=== PATIENT | female | born 1950 | race Caucasian/White ===

== ENCOUNTER → 2018-02-21 11:32 | Outpatient (CLI) | payer MEDICARE, OTHER, SELFPAY ==
[2018-02-21 13:09] LABS: ALB/GLOB Ratio 0.7 RATIO (0.9-2.4); AST(SGOT) 72 U/L (15-37); Alanine Aminotransfer ALT/SGPT 64 U/L (13-56); Albumin, Serum 3.4 g/dL (3.2-5.0); Alkaline Phosphatase 137 U/L (45-117); Anion Gap 8 (5-15); BUN 17 mg/dL (7-18); BUN/Creat Ratio 22.1 RATIO (10-20); Calcium,Total 9.6 mg/dL (8.5-10.1); Chloride 103 mmol/L (98-107); Cholesterol 177 mg/dL (200); Creatinine, Serum 0.77 mg/dL (0.55-1.02); EST Glomerular Filtration Rate 80 mL/min (>60); Est Glom Filt Rate - Afr Amer 97 mL/min (>60); Globulin 4.8 g/dL (2.2-4.2); Glucose 146 mg/dL (74-106); High Density Lipoprotein 37 mg/dL; Potassium 4.7 mmol/L (3.5-5.1); Protein, Total 8.2 g/dL (6.4-8.2); Sodium Level 140 mmol/L (136-145); Thyroid Stim Hormone (TSH) 1.75 uIU/mL (0.358-3.74); Triglycerides 204 mg/dL; Very Low Density Lipoprotein 41 mg/dL (5-40)
[2018-02-21 14:16] LABS: Absolute Lymphocyte Count 3.54 X10^3/ul (0.83-4.51); Absolute Neutrophil Count 7.5 X10^3/uL (2.0-7.7); Basophil# 0.07 X10^3/uL; Basophil% 0.6 % (0-1); Eosinophil# 0.73 X10^3/uL; Eosinophils% 5.8 % (0-5); Hematocrit 41.5 % (37-47); Hemoglobin 12.5 g/dl (12.0-15.0); Lymphocyte # 3.54 X10^3/ul (4.0); Lymphocyte % 28.1 % (19-41); Mean Corp Hgb Conc 30.1 g/gl (32-36); Mean Corpuscular Volume 89.6 fL (81-99); Mean Platelet Vol. 11.3 fl (6.2-12.0); Monocyte# 0.78 X10^3/uL; Monocyte% 6.2 % (0-10); Neutrophil # 7.47 X10^3/uL (2.7-7.7); Neutrophil % 59.1 % (47-70); Platelet Count 285 K/mm3 (150-450); RBC Distribution Width CV 17.3 % (11.6-14.6); RBC Distribution Width SD 56.4 fl (35.1-43.9); Red Blood Count 4.63 M/mm3 (4.2-5.4); White Blood Count 12.6 K/mm3 (4.4-11.0)
[2018-02-21 14:20] LABS: POSITIVE COUNT NO; POSITIVE DIFFERENTIAL NO; POSITIVE MORPHOLOGY NO
[2018-02-21 14:38] LABS: Hemoglobin A1c 8.5 % (4.2-6.3)
[2018-02-22 08:28] LABS: Vitamin D,25 Hydroxy 73.7 ng/mL (29.95-100.01)
== END ==
PROVIDERS: Family Provider Family Medicine Geriatric Medicine; PCP Family Medicine Geriatric Medicine; Visit Provider Family Medicine Geriatric Medicine
DX: E11.9 Type 2 diabetes mellitus without complications (principal); E55.9 Vitamin D deficiency, unspecified; E78.4 Other hyperlipidemia; I10 Essential (primary) hypertension
CPT/HCPCS: 36415; 80053; 80061; 82306; 83036; 84443; 85025

== ENCOUNTER → 2018-05-28 12:06 | Outpatient (CLI) | payer MEDICARE, OTHER, SELFPAY ==
[2018-05-28 12:34] LABS: Absolute Lymphocyte Count 2.93 X10^3/ul (0.83-4.51); Absolute Neutrophil Count 7.8 X10^3/uL (2.0-7.7); Basophil# 0.05 X10^3/uL; Basophil% 0.4 % (0-1); Eosinophil# 0.46 X10^3/uL; Eosinophils% 3.8 % (0-5); Hematocrit 40.7 % (37-47); Hemoglobin 12.8 g/dl (12.0-15.0); Lymphocyte # 2.93 X10^3/ul (4.0); Lymphocyte % 24.5 % (19-41); Mean Corp Hgb Conc 31.4 g/gl (32-36); Mean Corpuscular Hgb 28.7 pg (27.0-32.0); Mean Corpuscular Volume 91.3 fL (81-99); Mean Platelet Vol. 11.6 fl (6.2-12.0); Monocyte# 0.75 X10^3/uL; Monocyte% 6.3 % (0-10); Neutrophil # 7.75 X10^3/uL (2.7-7.7); Neutrophil % 64.7 % (47-70); Platelet Count 259 K/mm3 (150-450); RBC Distribution Width SD 49.4 fl (35.1-43.9); Red Blood Count 4.46 M/mm3 (4.2-5.4)
[2018-05-28 12:42] LABS: POSITIVE COUNT NO; POSITIVE DIFFERENTIAL NO; POSITIVE MORPHOLOGY NO
[2018-05-28 13:21] LABS: ALB/GLOB Ratio 0.8 RATIO (0.9-2.4); AST(SGOT) 98 U/L (15-37); Alanine Aminotransfer ALT/SGPT 91 U/L (13-56); Albumin, Serum 3.6 g/dL (3.2-5.0); Alkaline Phosphatase 162 U/L (45-117); Anion Gap 12 (5-15); BUN 14 mg/dL (7-18); BUN/Creat Ratio 17.5 RATIO (10-20); Calcium,Total 9.3 mg/dL (8.5-10.1); Chloride 103 mmol/L (98-107); Cholesterol 149 mg/dL (200); EST Glomerular Filtration Rate 76 mL/min (>60); Est Glom Filt Rate - Afr Amer 92 mL/min (>60); Globulin 4.5 g/dL (2.2-4.2); Glucose 158 mg/dL (74-106); High Density Lipoprotein 32 mg/dL; Potassium 4.2 mmol/L (3.5-5.1); Protein, Total 8.1 g/dL (6.4-8.2); Sodium Level 139 mmol/L (136-145); Triglycerides 441 mg/dL
== END ==
PROVIDERS: Family Provider Family Medicine Geriatric Medicine; PCP Family Medicine Geriatric Medicine; Visit Provider Family Medicine Geriatric Medicine
DX: E11.9 Type 2 diabetes mellitus without complications (principal); E55.9 Vitamin D deficiency, unspecified; E78.49 Other hyperlipidemia; I10 Essential (primary) hypertension
CPT/HCPCS: 36415; 80053; 80061; 85025

== ENCOUNTER → 2018-06-17 07:52 | Outpatient (CLI) | payer MEDICARE, OTHER, SELFPAY ==
--- NOTE | 2018-06-17 07:58 | US_ITS ---
STUDY: ABDOMINAL ULTRASOUND - RIGHT UPPER QUADRANT REASON FOR VISIT: Female, 67 years old. Abnormal labs. TECHNIQUE: Ultrasound evaluation of the right upper quadrant was performed with real-time and static fernandez-scale imaging. TECHNICAL QUALITY: Adequate. COMPARISON: None. FINDINGS: Liver: The liver measures 22.7 cm. There is increased echogenicity consistent with fatty infiltration. The bile ducts are within normal limits. There is hepatic color flow. The direction of portal flow is hepatopetal. There is no demonstrated mass lesion. Gallbladder: Normal distended gallbladder. The gallbladder wall measures 2.5 mm. There is a negative sonographic Gould's sign. There is no pericholecystic fluid. There are no gallstones. Common Bile Duct (C.B.D.): The common bile duct measures 3.0 mm. Pancreas: Normal size of the head, body and tail of the pancreas. There is normal echogenicity of the pancreas. There is no demonstrated pancreatic mass or cyst. Right Kidney: Normal size of the right kidney. The right kidney measures 10.7 cm in length. Normal renal cortex. There is no demonstrated renal mass or cyst. There is no right hydronephrosis. US/Abdomen Limited IMPRESSION: Fatty infiltration of the liver associated with hepatomegaly. Electronically Signed: Alexandra Erazo MD at 17:04 EST Tel , Service support ,
== END ==
PROVIDERS: Family Provider Family Medicine Geriatric Medicine; PCP Family Medicine Geriatric Medicine; Referring Provider Family Medicine Geriatric Medicine; Visit Provider Family Medicine Geriatric Medicine
DX: R94.5 Abnormal results of liver function studies (principal)
CPT/HCPCS: 76705

== ENCOUNTER → 2018-06-24 13:21 | Outpatient (CLI) | payer MEDICARE, OTHER, SELFPAY ==
--- NOTE | 2018-06-24 13:24 | CT_ITS ---
STUDY: LOW DOSE CT LUNG CANCER SCREENING REASON FOR EXAM: Female, 67 years old. Low dose, yearly follow-up. Smoker. 26 pack-year history. RADIATION DOSAGE (If Supplied By Facility): CTDIvol = ( 4.02 ) mGy, DLP = ( 135.42 ) mGycm TECHNIQUE: No contrast was administered. Low dose technique was utilized (average mAS-38 and kVp 120). 1.25 mm axial source images with a slice interval of 1.25-mm were reconstructed in lung windows. Coronal and sagittal 2-D MPR. Nodule measured using lung windows on PACS and/or independent workstation with automated measurement of minimum and maximum diameter. Nodule measurement reported as average diameter rounded to the nearest whole number. Growth is defined as an increase ins size of greater than 1.5 mm. COMPARISON: Low dose CT chest 05/18/2017. FINDINGS: Total lung nodules (excluding granulomas): Left lower lobe, no pulmonary nodule. Lingula, no pulmonary nodule. Left upper lobe no pulmonary nodule. Right middle lobe no pulmonary nodule. Minimal subsegmental focus of chronic atelectasis. Left lower lobe densely calcified pulmonary nodule consistent with old granulomatous disease. No other pulmonary nodules. Left upper lobe no pulmonary nodules. Emphysema: Generalized pulmonary hyperlucency without features of centrilobular or paraseptal emphysema. Endobronchial lesion: None. Aorta: Nondilated. Mild arch atherosclerosis. Coronary arteries: Moderately prominent coronary calcifications are present in the proximal to mid LAD, proximal 1st diagonal, proximal and mid RCA. Heart: Mitral annulus calcifications. Aortic valve annulus calcifications. Normal cardiac size without pericardial effusion. Pulmonary artery: Nondilated. Mediastinal nodes: There is no acute mediastinal or hilar lymphadenopathy. There are several densely calcified lymph nodes of the mediastinum and right hilum consistent with old granulomatous disease. Other chest and abdominal findings: Limited evaluation, low dose technique. No acute upper abdominal, body wall soft tissue or osseous process is evident. There is a thoracic spine neurostimulator device. CT/Low Dose CT Lung Screening IMPRESSION: ACR Lung RADS Category 1 (negative, less than 1% chance of malignancy). No visible pulmonary nodules. Suspected COPD without shawnee features of centrilobular or paraseptal emphysema. Generalized pulmonary hyperlucency and hyperexpansion. Coronary atherosclerosis. The chest appears stable compared to prior imaging of 2017. Recommend continued annual low dose CT chest for surveillance purposes. IMPORTANT NOTES FOR USE: ACR Lung-RADS Version 1.0 Assessment Categories Release Date: November 03, 2013 Category: Coded 0-4 bases on nodule(s) with highest degree of suspicion. Negative screen is defined as categories 1 and 2; a positive screen is defined as categories 3 and 4. Category 3 and 4A nodules that are unchanged on interval CT should be coded as category 2, and individuals returned to screening in 12 months. Category 4X: Category 3 or 4 nodules with additional imaging findings that increase the suspicion of lung cancer, such as spiculation, GGN that doubles in size in 1 year, enlarged lymph notes, etc. Category Modifiers: S (significant finding unrelated to lung cancer) and C (prior history of treated lung cancer) may be added to the 0-4 Lung-RADS Electronically Signed: Albert Ca MD at 14:51 EST Tel , Service support ,
--- OUTSIDE RECORDS SUMMARY | 2018-09-26 04:22 | XMS RPT_ITS ---
:1950 Author Organization OHIP Support Name Relationship Address Phone SALLIE STACY Unavailable [address] + [place] [address] R Unavailable Unavailable Unavailable MADDI, NELLIE Unavailable Unavailable + [place] [address] ADNETTESALLIE Lee Unavailable [address] + [place] [address] R Unavailable Unavailable Unavailable MADDI, NELLIE Unavailable Unavailable + [place] [address] DANETTERosa, SALLIE Unavailable [address] + [place] [address] R Unavailable Unavailable Unavailable MADDI, NELLIE Unavailable Unavailable + [place] [address] DANETTERosa, SALLIE Unavailable [address] + [place] [address] R Unavailable Unavailable Unavailable MADDI, NELLIE Unavailable Unavailable + [place] [address] REGIS, SALLIE Unavailable [address] + [place] [address] R Unavailable Unavailable Unavailable MADDI, NELLIE Unavailable Unavailable + [place] [address] DANETTERosa, SALLIE Unavailable [address] + [place] [address] R Unavailable Unavailable Unavailable MADDI, NELLIE Unavailable Unavailable + [place] [address] REGIS, SALLIE Unavailable [address] + [place] [address] D Unavailable Unavailable Unavailable MADDI, NELLIE Unavailable Unavailable + [place] [address] REGIS, SALLIE Unavailable [address] + [place] [address] D Unavailable Unavailable Unavailable MADDI, NELLIE Unavailable Unavailable + [place] [address] Care Team Providers Name Role Phone Iam Bee Attending Unavailable SibiliaIam Referring Unavailable [facility] Attending Unavailable [facility] Unavailable [facility] Attending Unavailable [facility] Unavailable Sibilia, Iam Attending Unavailable Sibilia, Iam Referring Unavailable [facility] Unavailable Sibilia, Iam Attending Unavailable Sibilia, Iam Referring Unavailable [facility] Unavailable [facility] Attending Unavailable [facility] Unavailable [facility] Referring Unavailable [facility] Attending Unavailable [facility] Unavailable [facility] Attending Unavailable [facility] Referring Unavailable [facility] Unavailable PROBLEMS PROBLEMS DATE TYPE CONDITION / CODE ATTENDING STATUS SOURCE 07/25/2018 Unknown J44.9 - Chronic Iam Bee Active [facility] obstructive Community pulmonary disease, Hospital unspecified / Repository J44.9(ICD-10) 07/03/2018 Unknown K76.9 - Liver [facility] disease, Community unspecified / Hospital K76.9(ICD-10) Repository 07/03/2018 Unknown Z87.891 - Personal Iam Bee Active [facility] history of nicotine Community dependence / Hospital Z87.891(ICD-10) Repository 06/23/2018 Unknown R94.5 - Abnormal [facility] Active [facility] results of liver Community function studies / Hospital R94.5(ICD-10) Repository 05/28/2018 Unknown E11.9 - Type 2 [facility] Active [facility] diabetes mellitus Community without Hospital complications / Repository E11.9(ICD-10) 05/28/2018 Unknown E55.9 - Vitamin D [facility] Active [facility] deficiency, Community unspecified / Hospital E55.9(ICD-10) Repository 05/28/2018 Unknown I10 - Essential [facility] Active [place] (primary) Community hypertension / Hospital I10(ICD-10) Repository PROCEDURES PROCEDURES No Procedure Records FoundRESULTS RESULTS CREATININE FINGERSTICK Collected: 07/22/2018 Status: F Source: [facility] TYPE CODE TESTS RESULT OUT OF RANGE REFERENCE UNITS LAB L9100.0210 0.55-1.02 mg/dL Normal CREATININE WB 0.9 LAB L9100.0220 >60 mL/min EGFR WB Normal > 60.0000 Performed By: #### L9100.0200 #### [facility] Point of Care [address] [place] [address] CTA CHEST W/WO Observed: 07/22/2018 Status: F Source: [facility] CONTRAST 12:08 PM [facility] REPOSITORY [facility] Imaging Services [address] [place] [address] CTA Chest W/WO Contrast MR#: [id number] Acct: [id number] Name: VIRAL RODGERS Rep #: [id number] : 1950 F 67 From: Gm Fermin MD PCP: [facility] MD, Chi Status: REG CLI Study: CTA Chest W/WO Contrast Date of Exam: 07/22/18 Exam# [id number] Ordering Dr: [facility] Gu MD STUDY: CTA CHEST REASON FOR EXAM: Female, 67 years old. Chest pain. Shortness of breath. RADIATION DOSAGE (If Supplied By Facility): CTDIvol = ( 14.88 ) mGy, DLP = ( 644.73 ) mGycm TECHNIQUE: The examination was performed with the intravenous administration of 100ML ml of Isovue 370 contrast material. Post-processing of the angiographic images was performed, with multiplanar reformation and 3D reconstruction. Individualized dose optimization techniques were used for this CT. COMPARISON: Comparison is made with prior CT scan of the chest dated June 24, 2018. FINDINGS: Small bilateral axillary lymph nodes. Normal enhancement of the main pulmonary artery and right and left pulmonary arteries. Normal enhancement of the bilateral peripheral pulmonary arteries. There is no demonstrated pulmonary embolism. There is atherosclerotic calcification of the aortic arch with tortuosity. There is no demonstrated aortic dissection. There are calcifications of the coronary arteries. Normal mediastinum. Normal hilar regions. Normal visualized trachea and bronchi. The lungs are well expanded. There is a 1.3 cm calcified granuloma in the right lower lobe. Stable linear scarring in the anterior aspect of the right middle lobe. Mild increased markings at the right lung base suggestive of scarring. Normal pleura. Normal chest wall structures. There are degenerative changes of thoracic spine. Calcified splenic granulomas. CT/CTA Chest W/WO Contrast IMPRESSION: No evidence of pulmonary embolism. Stable examination. Electronically Signed: Gm Fermin MD at 13:30 EST Tel [phone], Service support , CC: [facility] MD Culinary Artist: Signed BASIC METABOLIC Collected: 07/22/2018 Status: F Source: [facility] PROFILE (BMP) 11:52 AM [facility] REPOSITORY TYPE CODE TESTS RESULT OUT OF RANGE REFERENCE UNITS LAB L501.0100 74-106 mg/dL High GLU 176 Result Comment: Fasting Glucose result greater than or equal to 126 mg/dL suggests DIABETES MELLITUS per A.D.A. criteria. Please note revised GLUCOSE reference range effective 2017. LAB L501.1000 7-18 mg/dL Normal BUN 14 LAB L501.1100 0.55-1.02 mg/dL Normal CREAT,SERUM 0.78 Result Comment: The validity of the calculated GFR AND GFRAA in patients over 70 years has not been determined. Clinical correlation is essential. LAB L501.1110 >60 mL/min Normal EST GFR 79 Result Comment: Non- GFR Calc LAB L501.1115 >60 mL/min Normal EST GFR - AA 96 Result Comment: GFR Calc LAB L501.1300 10-20 RATIO Normal BUN/CRE 18.1 LAB L501.2200 8.5-10.1 mg/dL CA Normal 9.1 LAB L501.5300 136-145 mmol/L NA Normal 137 LAB L501.5600 3.5-5.1 mmol/L K Normal 4.5 LAB L501.5900 98-107 mmol/L CL Normal 102 LAB L501.6100 21.0-32.0 mmol/L Normal CO2 26.0 LAB L501.6200 5-15 Normal GAP 9 Performed By: #### L500.2500 #### [facility] [address] [place], [address] D-DIMER QUANTITATIVE Collected: 07/22/2018 Status: F Source: [facility] (DVT/PE) 11:52 AM [facility] REPOSITORY TYPE CODE TESTS RESULT OUT OF RANGE REFERENCE UNITS LAB L300.8000 0.27-0.49 FEU/ug/m High alert D-DIMER 0.81 QUANT Result Comment: CRITICAL VALUE VERIFIED. CALLED TO LIZETT 07/22/18 Shalonda Romero. RESULTS READ BACK BY EZRACHAVA . D-Dimer ELEVATED (>0.49): Additional studies and clinical assessments are indicated to conclude diagnosis of: Deep Vein Thrombosis (DVT) or Pulmonary Embolism (PE) Performed By: #### L300.8000 #### [facility] [address] [place], [address] [place] - INDIVIDUAL Observed: 07/20/2018 Status: F Source: [facility] TREATMENT PLAN 10:40 AM [facility] Pulmonary Rehab Reports [address] [facility] [place] [address] [place] - Individual Treatment Plan MR#: [id number] Acct: [id number] Name: VIRAL RODGERS Rep #: [id number] : 1950 67 From: Samy Herron [employer]UT[employer] CONSULTANT, REPORTING LEAD, BS PCP: Riccardo HAYES,[facility] General Information - General Information Admitting Diagnosis: COPD Gold Classification:: GOLD 3: Severe - PFT FEV1:: 2.16 FVC:: 3.53 FEV1/FVC%:: 61 - Education/Goals Barriers to Learning: Vision Impairment Individual Counseling: Initial Assessment: Dyspnea control techniques at rest, activity, and ADLs, Exacerbation prevention AND management, Nutrition AND weight management, Home exercise plan AND guidelines, Advanced directives - Cable Reeler to see patient Patient Goals: Breathe better: Initial Assessment, Increase endurance/stamina: Initial Assessment, Return to recreation/hobby: Initial Assessment, Improve weight: Initial Assessment Exercise - Initial Assessment - Visit Date of Eval: 07/16/18 - initial ITP start - Problem/Goals Problems: Deconditioning, No regular exercise, Knowledge deficit exercise guidelines, Knowledge deficit exercise safety Goals:: Aerobic exercise 30-60 mins x 9 weeks, AK: 2-3/wk - Exercise Prescription Mode:: Treadmill, Airdyne, NuStep, Arm Ergometer Frequency (x/week): 3 Duration:: 30-45 min MET LEVEL:: 2.5 HR (bpm):: 116 - rest HR + 20 BPM Exercise Progression: 0.5-1.0 MET RPE 11-14/week - Plan Plan and Plan to Review:: Benefits of exercise, Core components of exercise, How to measure dyspnea level, How to monitor dyspnea level, Exercise intensity, Exercise safety guideline, Home exercise guidelines, Jose: 3-4/-13 Disease Management - Initial - Problems/Goals-Medications Medication Problems:: Incorrect inahled Rx use, technique Medication Goals: Adherence to prescribed medications, Correct technique/timing AND care of MDI, DPI, nebulizer, and spacer. - Problems/Goals-Bronchial Hygiene Bronchial Hygiene Problems:: Respiratory infection Prevention/Management Bronchial Hygiene Goals:: Pt describes signs and symptoms of infection. - Initial Assessment SpO2:: 90 FiO2:: 21 Does pt report taking home meds as prescribed?: Yes Medications: Yes MDI, Yes NEB, No Spacer - will instruct in use of spacer and MDI device Patient Reports:: No cough - Plans Hypoxemia Plan:: Monitor SpO2 rest AND with exercise, Train appropriate O2 use at rest, Train appropriate O2 use with exercise, Train O2 safety AND systems Reviewed prescribed medications:: Purpose, Schedule, Side effects, Importance of compliance Instruct correct technique/timing AND care:: MDI, DPI, Nebulizer, Return demo use of inhaler Bronchial Hygiene Plan: Controlled cough, Vibratory PEP device, Hydration, Hand hygiene, When to call MD, Signs/symptoms to report: Psychosocial - Initial Assess - Problems/Goals Problems: Impaired Q.O.L. Psychosocial Goals: Improved Q.O.L. - Psychosocial Test Depression:: Anxiety, Panic, Impaired QOL Referred to MD for counseling:: No - Plan Reviewed screening results: Yes Instructions given regarding:: Benefits of exercise, Relaxation techniques, Training in coping strategies Tobacco - Initial Assessment - Program Goals Tobacco Program Goals: Complete smoking cessation. Attend education classes. Improve Knowledge Test score - Stage of Change Stages of Change:: Action - Learning Barriers Learning Barriers: Vision, Ready to Learn - Family Support Do you have family support?: Yes - Tobacco Use Tobacco Use: Non-smoker - former smoker quit 07/16/2017 Years Smokin Do you use smokeless tobacco?: No - Intervention Smoking Cessation Referral:: No Individual Education/Counseling:: No Education Schedule Given:: Yes - Education Gave Education Materials For:: Tobacco Triggers, Pulmonary Disease, Risk Factors, Breathing Techniques, Medical Compliance, Pulmonary A AND P, Exacerbation Signs AND Symptoms, Stress AND Relaxation Nutrition/Wt Mgmt - Initial - Problems/Goals Problems: Overweight Goals: Wt Loss 1-2 lbs per week, Waist circumference - Weight Management Knowledge Deficit Management of:: Overweight Admit Height:: 5 ft 6 in Admit Weight:: 216 lb Admit BMI:: 34.8 - Diabetes Diabetes:: Yes Insulin: Yes Do you monitor your blood sugar at home?: Yes - Intervention Referral to dietitian:: No - patient declined Referral to Diabetic Clinic:: No - patient declined Will attend diet classes:: Yes - Plan Nutrition Plan: Yes Review BMI or WC AND identify target wt AND strategies for wt control, Yes Nutrition education class:, Yes Weight control education class:, Yes Education re: Need for ongoing weight monitoring Patient Health Questionnaire Initial Assessment 1. Little interest or pleasure in doing things: Not at all 2. Feeling down, depressed, or hopeless: Not at all 3. Trouble falling or staying asleep, or sleeping too much: Several days 4. Feeling tired or having little energy: More than half the days 5. Poor appetite or overeating: Not at all 6. Feeling bad about yourself -- or that you are a failure or have let yourself or your family down: Not at all 7. Trouble concentrating on things, such as reading the newspaper or watching television: Not at all 8. Moving or speaking so slowly that other people could have noticed. Or the opposite - being so fidgety or restless that you have been moving around a lot more than usual: Not at all 9. Thoughts that you would be better off , or of hurting yourself in some way: Not at all How difficult have these problems made it for you to do your work, take care of things at home, or get along with other people?: Somewhat difficult Total Score: 3 COPD Knowledge Test Initial COPD is a lung disease that:: Makes it hard to breathe AND gets worse over time In the [place] the term COPD describes 2 main lung conditions:: Emphysema AND chronic bronchitis The most common lung irritant that causes COPD is:: Cigarette smoke Common signs and symptoms of COPD include:: An ongoing cough/cough that produces a large amount of mucus, AND SOB If you have COPD, what steps can you take?: All of the above Swelling of the ankles is common in COPD:: False Fatigue [tiredness] is common in COPD:: True Wheezing is common in COPD:: True Crushing chest pain is common in COPD:: False Rapid weight loss is common in COPD:: False Breathlessness is a normal response to exercise: True Exercise should be avoided if it makes you short of breath: False All bronchodilators act within 10 minutes: True A spacer device increases the medication to the lungs: True Annual flu vaccine is recommended for pts w/lung disease: True COPD Knowledge Test Total Score:: 14 COPD Assessment Test [CAT] - Questions Never cough = 0, Cough all the time = 5: 0 No phlegm = 0, Chest full of phlegm = 5: 0 No chest tightness = 0, Chest very tight = 5: 0 No breathless w/exertion = 0, Very breathless w/exertion = 5: 4 No limitations w/activity = 0, Very limited w/activity = 5: 4 Confident leaving home = 0, Not at all confident = 5: 1 Sleep soundly = 0, Don't sleep soundly = 5: 1 Lots of energy = 0, No energy at all = 5: 5 Total CAT score:: 15 Self-Efficacy Initial Assessment We would like to know how confident you are in doing certain activities. Please select your confidence level for:: Select your confidence level for the following using the scale 1-10 where 1 is not at all confident and 10 is totally confident. Your score is the average of all 6 responses. Fatigue: How confident are you that you can keep the fatigue caused by your disease from interfering with the things you want to do? Select Number: 7 Physical Discomfort or Pain: How confident are you that you can keep the physical discomfort or pain of your disease from interfering with the things you want to do? Select Number: 5 Emotional Distress: How confident are you that you can keep the emotional distress caused by your disease from interfering with the things you want to do? Select Number: 8 Other Symptoms or Health Problems: How confident are you that you can keep other symptoms or health problems from interfering with the things you want to do? Select Number: 8 Different Tasks and Activities: How confident are you that you can do the different tasks and activities needed to manage your health condition so as to reduce your need to see a doctor? Select Number: 10 Medication: How confident are you that you can do things other than just taking medication to reduce how much your illness affects your everyday life? Select Number: 10 Total Score:: 8 Nutrition Survey - Nutrition Survey Instructions Scoring Instructions: Scoring is as follows: Yes = 1 points. No = 0 point. Patient score that is >/=12 is considered to be at potential nutritional risk and could benefit from a referral to a registered dietitian. - Nutrition Survey Initial Have you lost >10 lbs over the past 2 months without trying?: No Are you following a special diet at home for diabetes, low fat, or low salt?: No Are you interested in meeting with a dietitian for help understanding your diet?: No Do you eat less than 3 meals a day?: No Do you eat fatty meats (hines, sausage, ribs, etc), fried foods, desserts, large amounts of salad dressings, margarine, butter, or cheese most days?: Yes Do you have food allergies? [Enter types in comment field]: No Do you eat in restaurants more than 3 times a week?: No Do you season food with salt, seasoning salt, or garlic salt?: Yes Do you used canned, boxed, frozen meals, or soups, seasoning packets?: Yes Total Score:: 3 07/16/18 1115 <Electronically signed by Samy Herron CRT, RCP, BS> Date Samy Herron CRT, RCP, BS Outcome assessment reviewed. Exercise plan approved as documented. Treatment plan and goals support patient needs/abilities. Continue with current plan. I certify the patient demonstrates improvement and remains willing and capable of participation. the patient continues to benefit from pulmonary services/training. The patient may continue at current intensity, endurance and modality and progress per protocol. 07/20/18 1040<Electronically signed by Jordi Rodriguez MD> Cintia Signature: Date Jordi Rodriguez MD CC: Signed AK - HISTORY AND Observed: 07/20/2018 Status: F Source: [facility] PHYSICAL 10:40 AM [facility] REPOSITORY [facility] Pulmonary Rehab Reports [address] [place] [address] [place] - History AND Physical MR#: [id number] Acct: [id number] Name: VIRAL RODGERS Rep #: [id number] : 1950 67 From: Sadie Lopez MOHS SURGEON PCP: Mt Gu MD, Chi History of Present Illness Arrival date:: 07/16/18 Arrival time:: 09:30 Date of Referral:: 06/13/18 Date of Evaluation: 07/16/18 Referring Physician: Dr. Bee Primary Diagnosis: COPD History of Present Illness: 67 yr old female with COPD mMRC Breathless Scale: When is the patient short of breath? Y/N Grade: Description of Breathlessness: Respiratory Problems: Yes: Fatigue, Wheezing, Able to Speak in Full Sentences, Hoarseness, Dyspnea with Activity, Dyspnea Lying Down Flat No: Retain Secretions, Limited Range of Motion, Chest Pain, Dizziness, Ankle Swelling, Anxiety, Panic, Dyspnea at Rest, Cough with Secretions Home Medications: Home Medications Albuterol Sulfate [Proventil Hfa] 6.7 gm IH 4X/DAY 11/16/14 Aspirin 325 mg PO DAILY@0800 11/16/14 Atorvastatin Calcium [Lipitor] 80 mg PO QHS 11/16/14 Cyclobenzaprine [Flexeril] 10 mg PO BID 11/16/14 Doxepin HCl [Sinequan] 20 mg PO QHS 11/16/14 Ergocalciferol [Vitamin D] 50,000 unit PO Q7D 11/16/14 Fluticasone/Salmeterol [Advair 100/50 Diskus] 1 puff INHALATION BID 11/16/14 Hydrochlorothiazide [Hctz] 25 mg PO DAILY 11/16/14 Insulin Detemir [Levemir (BKC)] 70 units SC QHS 11/16/14 Lansoprazole [Prevacid] 30 mg PO DAILY 11/16/14 Levothyroxine [Synthroid] 25 mcg PO DAILY 11/16/14 Lisinopril [Zestril] 5 mg PO DAILY 11/16/14 Meloxicam [Mobic] 15 mg PO DAILY 11/16/14 Metformin HCl [Glucophage] 500 mg PO BIDCM 11/16/14 Tiotropium Wiley [Spiriva 18 MCG] 1 puff INHALATION DAILY 11/16/14 traMADol [Ultram (G)] 50 mg PO Q6H PRN PRN 11/16/14 DiphenhydrAMINE [Benadryl] 50 mg PO BID 11/17/14 Oxycodone HCl/Acetaminophen [Percocet 5/325] 1 - 2 tablet PO Q4H PRN PRN #30 tablet 11/17/14 Allergies/Adverse Reactions: Allergies hydroxyzine HCl [From Vistaril] Allergy (Verified 11/16/14 15:21) Hives hydroxyzine pamoate [From Vistaril] Allergy (Verified 11/16/14 15:21) Hives Penicillins [PCN] Allergy (Verified 11/16/14 15:21) Hives Sulfa (Sulfonamide Antibiotics) Allergy (Verified 11/16/14 15:21) Hives - Secretions Cough:: No Hx of Sleep Apnea: No Do you snore loudly (louder than talking or can be heard through closed doors)?: No Do you often feel tired/ fatigued/ sleepy during daytime?: No Has anyone observed you stop breathing during sleep?: No History of Hypertension (for STOP score): No STOP Results: Negative Medical Utilization Do you use a peak flow meter at home?: No Do you use a spacer device with your inhalers?: No Number of hospital visits in the last year?: 0 Number of emergency room visits in the last year?: 0 Do you see your physician on a regular schedule?: Yes How often?: twice for regular and once for pulmonary Advanced Directives - Advanced Directives Power of Postal Worker: Yes Living Will: Yes Advance Directives Information Provided: Yes Advance Directives on File: No - Mobile Plant Operators to see patient DNR Order?:: Yes - MOLST See MOLST form: No Past Medical History Medical History: Past Medical History (Last Updated 07/16/18 @ 10:16 by Sadie Lopez, DAVID) Arthritis M19.90 Cervical pain (neck) M54.2 Diabetes mellitus E11.9 Fibromyalgia M79.7 GERD (gastroesophageal reflux disease) K21.9 Osteoarthritis M19.90 Vascular disease I99.9 COPD (chronic obstructive pulmonary disease) J44.9 Hypertension I10 Surgical History: Past Surgical History (Last Updated 07/16/18 @ 10:17 by Sadie Lopez, DAVID) H/O hernia repair Z98.890, Z87.19 Previous back surgery Z98.890 S/P insertion of spinal cord stimulator Z98.890 - Current/ Previous Services Pulmonary Rehab:: No Social History - Smoking History Smoking Status: Former smoker Years Smokin Packs Smoked per Day: 1 Hx Smoking Cessation Date: Jul 09 2017 Hx Tobacco Use: Yes Hx Smoking Exposure: No - Alcohol Use Alcohol Usage: Yes - social - Substance Abuse Hx Substance Use: No - Occupation Occupation (List type of work in comments):: Retired - Hobbies, Recreation, Social Activities Hobbies: None, Other - camp Recreational Activities: I am able to engage in most, but not all activities Functioning ADL/IADL - Current Ability Current Ability: Independent Self-Care (e.g.,grooming, dressing, AND bathing), Independent Ambulation, Independent Transfer, Independent Household tasks (e.g., light meal prep, laundry, shopping) - slower pace - Pt Functioning Prior to Problem Prior Functioning: Self-Care (e.g.,grooming, dressing, AND bathing): Independent, Ambulation: Independent, Transfer: Independent, Household tasks (e.g., light meal prep, laundry, shopping): Independent Social Environment - Status Marital Status: - Current Living Arrangements Living Environment:: Alone - Children How many children do you have?: 2 - Decreased Do any of your children live nearby?: No - Safety Do you feel safe in your surroundings?: Yes - Assistance Do you need any assistance at home?: no Review of Systems Review of Systems: Right click = Denies ([place]ash). 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 Denies: Cough, Hemoptysis, Pleuritic Pain, SOB at Rest, Sputum production, Dizziness/Lightheadedness, Sexual changes Is Patient Pain Free?: No Pain Location: back Pain Level: 5/10 Previous experience dealing with pain?: lower back Risk Factor Assessment - Chief Complaint Chief Complaint: COPD - Vital Signs Temperature: 98.7 F Pulse Rate: 120 Pulse Rhythm: Regular Respiratory Rate: 20 Pulse Ox: 90 Blood Pressure: 128/64 Nailbeds:: pink - Diabetes Diabetic History: Type II, Insulin Dependent - Obesity Height: 1.68 m Weight:: 99.79 kg Weight in Pounds: 220.0 lbs Weight Source: Stated by Patient Body Mass Index (BMI): 35.5 Nutritional Referral for Obesity: Yes - Physical Activity Physical Inactivity: None - Risk Stratification Risk Guidelines: Lowest Risk: Risk Factor for Smoking, Risk Factor for Dyslipidemia, Risk Factor for Diabetes, Risk Factor for Hypertension, Risk Factor for Depression, Highest Risk: Risk Factor for Obesity, Risk Factor for Sedentary Lifestyle - For Smoking Smoking Risk Guidelines: Smoking Low Risk: None or quit greater than 6 months ago. Smoking Moderate Risk: Smoker or quit 6 months or less ago. Smoking High Risk: Smoker - For Dyslipidemia Dyslipidemia Risk Guidelines: Low Risk: Moderate Risk: High Risk: 15-25% fat 25.1-29% fat >/= 30% fat. <7% sat fat 7-9% sat fat >9% sat fat. <150 mg chol 150-299 mg chol >/= 300 mg chol. LDL <100 LDL 100-129 LDL >/= 130. Chol/HDL ratio <5.0 Chol/HDL ratio 5.0-6.0 Chol/HDL ratio >6.0. Triglycerides <100 Triglycerides 100-149 Triglycerides >/= 150 - For Diabetes Mellitus Diabetes Risk Guidelines: Diabetes Low Risk: HgA1c <6.5% and/or FBG <120. Diabetes Moderate Risk: HgA1c 6.6-7.9% and/or FBG 120- 180. Diabetes High Risk: HgA1c >/= 8% and/or FBG >180 - For Obesity/Overweight Obesity/Overweight Risk Guidelines: Obesity Low Risk: BMI <25.0. Obesity Moderate Risk: BMI 25-29.9. Obesity High Risk: BMI >/= 30.0 - For Hypertension Hypertension Risk Guidelines: Hypertension Low Risk: Systolic <120 and Diastolic <80. Hypertension Moderate Risk: Systolic 120-139 and Diastolic 80-89. Hypertension High Risk: Systolic >/= 140 and Diastolic >/= 90 - For Sedentary Lifestyle Sedentary Lifestyle Risk Guidelines: Sedentary Lifestyle Low Risk: >/= 1,500 kcal/week. Sedentary Lifestyle Moderate Risk: 700-1,499 kcal/week. Sedentary Lifestyle High Risk: < 700 kcal/week - For Depression Depression Risk Guidelines: Depression Low Risk: Not clinically depressed. Depression Moderate Risk: Mildly depressed. Depression High Risk: Clinically depressed Motivation - Motivation to Participate On a scale of 1 to 10, how prepared are you to commit to attending program?: 10 What do you see as barriers to successfully being able to complete the program?: 10 What do you see as the benefits of succesfully completing the program? In other words, what do you hope to get out of participating in the program?: 10 Are there issues you are dealing with that will interfere with completing the program?: 9 Do you have a spouse or signficant other, family or friends who will help support you to complete the program?: 0 Diagnostic Data Review - Pulmonary Function Test FEV1:: 0 - pending results 07/16/18 1034 <Electronically signed by Sadie Lopez MOHS SURGEON> Date Sadie Lopez MOHS SURGEON Outcome assessment reviewed. Exercise plan approved as documented. Treatment plan and goals support patient needs/abilities. Continue with current plan. I certify the patient demonstrates improvement and remains willing and capable of participation. the patient continues to benefit from pulmonary services/training. The patient may continue at current intensity, endurance and modality and progress per protocol. 07/20/18 1040<Electronically signed by Jordi Rodriguez MD> Cosigner Signature: Date Jordi Rodriguez MD CC: Signed HEPATITIS ABC PROFILE Collected: 06/25/2018 Status: F Source: [place] 2:08 PM [facility] REPOSITORY TYPE CODE TESTS RESULT OUT OF RANGE REFERENCE UNITS LAB L3100.0200 Negative Normal HEP A Negative IgM 6734 LAB L3100.0300 Negative Normal HEP A Negative AB,T.6726 LAB L3100.0400 Negative Normal HB Negative SURF AG LAB L3100.0440 Negative Normal HB Negative CORE [id number] LAB L3100.0460 Negative Normal HEP B Negative CORE,TOT LAB L3100.0510 . Normal Hep B Non Reactive Darryl AB Result Comment: Non Reactive: Inconsistent with immunity, less than 10 mIU/mL Reactive: Consistent with immunity, greater than 9.9 mIU/mL LAB L3100.0750 0.0-0.9 s/co ratio Normal HCV Ab <0.1 LAB L3100.0765 . Normal COMMENT Comment Result Comment: Non reactive HCV antibody screen is consistent with no HCV infection, unless recent infection is suspected or other evidence exists to indicate HCV infection. Performed at: [facility] [address] [id number] Operational Risk Consultant: Hernesto Cesar PhD, Phone: [phone] Performed By: #### L3000.0700 #### [facility] (refer to report for specific site) refer to report for address and phone number LOW DOSE CT LUNG Observed: 06/24/2018 Status: F Source: [place] SCREENING 1:24 PM [facility] REPOSITORY [facility] Imaging Services [address] [place] [address] Lung Screening MR#: [id number] Acct: [id number] Name: VIRAL RODGERS Rep #: [id number] : 1950 F 67 From: Albert Ca MD PCP: Riccardo HAYES,[facility] Status: [facility] Study: Low Dose CT Lung Screening Date of Exam: 06/24/18 Exam# [id number] Ordering Dr: Iam Bee MD STUDY: LOW DOSE CT LUNG CANCER SCREENING REASON FOR EXAM: Female, 67 years old. Low dose, yearly follow-up. Smoker. 26 pack-year history. RADIATION DOSAGE (If Supplied By Facility): CTDIvol = ( 4.02 ) mGy, DLP = ( 135.42 ) mGycm TECHNIQUE: No contrast was administered. Low dose technique was utilized (average mAS-38 and kVp 120). 1.25 mm axial source images with a slice interval of 1.25- mm were reconstructed in lung windows. Coronal and sagittal 2-D MPR. Nodule measured using lung windows on PACS and/or independent workstation with automated measurement of minimum and maximum diameter. Nodule measurement reported as average diameter rounded to the nearest whole number. Growth is defined as an increase ins size of greater than 1.5 mm. COMPARISON: Low dose CT chest 05/18/2017. FINDINGS: Total lung nodules (excluding granulomas): Left lower lobe, no pulmonary nodule. Lingula, no pulmonary nodule. Left upper lobe no pulmonary nodule. Right middle lobe no pulmonary nodule. Minimal subsegmental focus of chronic atelectasis. Left lower lobe densely calcified pulmonary nodule consistent with old granulomatous disease. No other pulmonary nodules. Left upper lobe no pulmonary nodules. Emphysema: Generalized pulmonary hyperlucency without features of centrilobular or paraseptal emphysema. Endobronchial lesion: None. Aorta: Nondilated. Mild arch atherosclerosis. Coronary arteries: Moderately prominent coronary calcifications are present in the proximal to mid LAD, proximal 1st diagonal, proximal and mid RCA. Heart: Mitral annulus calcifications. Aortic valve annulus calcifications. Normal cardiac size without pericardial effusion. Pulmonary artery: Nondilated. Mediastinal nodes: There is no acute mediastinal or hilar lymphadenopathy. There are several densely calcified lymph nodes of the mediastinum and right hilum consistent with old granulomatous disease. Other chest and abdominal findings: Limited evaluation, low dose technique. No acute upper abdominal, body wall soft tissue or osseous process is evident. There is a thoracic spine neurostimulator device. CT/Low Dose CT Lung Screening IMPRESSION: ACR Lung RADS Category 1 (negative, less than 1% chance of malignancy). No visible pulmonary nodules. Suspected COPD without shawnee features of centrilobular or paraseptal emphysema. Generalized pulmonary hyperlucency and hyperexpansion. Coronary atherosclerosis. The chest appears stable compared to prior imaging of 2017. Recommend continued annual low dose CT chest for surveillance purposes. IMPORTANT NOTES FOR USE: ACR Lung-RADS Version 1.0 Assessment Categories Release Date: November 03, 2013 Category: Coded 0-4 bases on nodule(s) with highest degree of suspicion. Negative screen is defined as categories 1 and 2; a positive screen is defined as categories 3 and 4. Category 3 and 4A nodules that are unchanged on interval CT should be coded as category 2, and individuals returned to screening in 12 months. Category 4X: Category 3 or 4 nodules with additional imaging findings that increase the suspicion of lung cancer, such as spiculation, GGN that doubles in size in 1 year, enlarged lymph notes, etc. Category Modifiers: S (significant finding unrelated to lung cancer) and C (prior history of treated lung cancer) may be added to the 0-4 Lung-RADS Electronically Signed: Albert Ca MD at 14:51 EST Tel , Service support , CC: Iam Bee MD; Mt Gu MD Culinary Artist: Signed ABDOMEN LIMITED Observed: 06/17/2018 Status: F Source: [place] 7:58 AM [facility] REPOSITORY [facility] Imaging Services [address] [place] [address] [place] [address] Abdomen Limited MR#: [id number] Acct: [id number] Name: VIRAL RODGERS Rep #: [id number] : 1950 F 67 From: Alexandra Erazo MD PCP: Mt Gu MD, [place] Status: REG CLI Study: Abdomen Limited Date of Exam: 06/17/18 Exam# [id number] Ordering Dr: Mt Gu MD STUDY: ABDOMINAL ULTRASOUND - RIGHT UPPER QUADRANT REASON FOR VISIT: Female, 67 years old. Abnormal labs. TECHNIQUE: Ultrasound evaluation of the right upper quadrant was performed with real-time and static fernandez-scale imaging. TECHNICAL QUALITY: Adequate. COMPARISON: None. FINDINGS: Liver: The liver measures 22.7 cm. There is increased echogenicity consistent with fatty infiltration. The bile ducts are within normal limits. There is hepatic color flow. The direction of portal flow is hepatopetal. There is no demonstrated mass lesion. Gallbladder: Normal distended gallbladder. The gallbladder wall measures 2.5 mm. There is a negative sonographic Gould's sign. There is no pericholecystic fluid. There are no gallstones. Common Bile Duct (C.B.D.): The common bile duct measures 3.0 mm. Pancreas: Normal size of the head, body and tail of the pancreas. There is normal echogenicity of the pancreas. There is no demonstrated pancreatic mass or cyst. Right Kidney: Normal size of the right kidney. The right kidney measures 10.7 cm in length. Normal renal cortex. There is no demonstrated renal mass or cyst. There is no right hydronephrosis. US/Abdomen Limited IMPRESSION: Fatty infiltration of the liver associated with hepatomegaly. Electronically Signed: Alexandra Erazo MD at 17:04 EST Tel , Service support , CC: Mt Gu MD Culinary Artist: Signed CBC W/DIFF, AUTOMATED Collected: 05/28/2018 Status: F Source: [place] 12:10 PM [facility] REPOSITORY TYPE CODE TESTS RESULT OUT OF RANGE REFERENCE UNITS LAB L100.1000 4.4-11.0 K/mm3 High WBC 12.0 LAB L100.1200 4.2-5.4 M/mm3 Normal RBC 4.46 LAB L100.1300 12.0-15.0 g/dl Normal HGB 12.8 LAB L100.1400 37-47 % Normal HCT 40.7 LAB L100.1500 81-99 fL Normal MCV 91.3 LAB L100.1600 27.0-32.0 pg Normal MCH 28.7 LAB L100.1700 32-36 g/gl Low MCHC 31.4 LAB L100.1810 11.6-14.6 % High RDW CV 15.0 LAB L100.1820 35.1-43.9 fl High RDW SD 49.4 LAB L100.1900 150-450 K/mm3 Normal PLT 259 LAB L100.2000 6.2-12.0 fl Normal MPV 11.6 LAB L100.2100 47-70 % Normal NEUT% 64.7 LAB L100.2200 19-41 % Normal LY% 24.5 LAB L100.2300 0-10 % Normal MONO% 6.3 LAB L100.2400 0-5 % Normal EO% 3.8 LAB L100.2500 0-1 % Normal BASO% 0.4 LAB L100.2550 0.0-0.9 % Normal IM GRAN % 0.300 Result Comment: IG% - Immature Granulocytes (promyelocytes, myelocytes and metamyelocytes) > 1% indicates that a LEFT SHIFT is Present. LAB L100.2620 2.0-7.7 X10 3/uL High Absolute Neut 7.8 LAB L100.2720 0.83-4.51 X10 3/ul Normal Absolute Lymph 2.93 Performed By: #### L100.0100 #### [facility] [address] [place], [place], [address] COMPREHENSIVE METABOLIC Collected: 05/28/2018 Status: F Source: [facility] 12:10 PM [facility] REPOSITORY TYPE CODE TESTS RESULT OUT OF RANGE REFERENCE UNITS LAB L501.0100 74-106 mg/dL High GLU 158 Result Comment: Fasting Glucose result greater than or equal to 126 mg/dL suggests DIABETES MELLITUS per A.D.A. criteria. Please note revised GLUCOSE reference range effective 2017. LAB L501.1000 7-18 mg/dL Normal BUN 14 LAB L501.1100 0.55-1.02 mg/dL Normal CREAT,SERUM 0.80 Result Comment: The validity of the calculated GFR AND GFRAA in patients over 70 years has not been determined. Clinical correlation is essential. LAB L501.1110 >60 mL/min Normal EST GFR 76 Result Comment: Non- GFR Calc LAB L501.1115 >60 mL/min Normal EST GFR - AA 92 Result Comment: GFR Calc LAB L501.1300 10-20 RATIO Normal BUN/CRE 17.5 LAB L501.1500 6.4-8.2 g/dL T Normal PROT 8.1 LAB L501.1800 3.2-5.0 g/dL Normal ALB 3.6 LAB L501.1950 2.2-4.2 g/dL High GLOB 4.5 LAB L501.2000 0.9-2.4 RATIO Low A/G 0.8 LAB L501.2200 8.5-10.1 mg/dL CA Normal 9.3 LAB L501.4100 15-37 U/L High AST 98 LAB L501.4305 45-117 U/L High ALK P 162 LAB L501.4405 13-56 U/L High ALT 91 LAB L501.4600 0.20-1.00 mg/dL T Normal BILI 0.30 LAB L501.5300 136-145 mmol/L NA Normal 139 LAB L501.5600 3.5-5.1 mmol/L K Normal 4.2 LAB L501.5900 98-107 mmol/L CL Normal 103 LAB L501.6100 21.0-32.0 mmol/L Normal CO2 24.0 LAB L501.6200 5-15 Normal GAP 12 Performed By: #### L500.4050, L500.4100 #### [facility] [address] [place], [place], [id number] LIPID PROFILE Collected: 05/28/2018 Status: F Source: [place] 12:10 PM [facility] REPOSITORY TYPE CODE TESTS RESULT OUT OF RANGE REFERENCE UNITS LAB L501.4900 200 mg/dL Normal CHOL 149 Result Comment: <200 mg/dL Desirable 200-240 mg/dL Borderline >240 mg/dL High Risk LAB L501.5000 mg/dL High TRIG 441 Result Comment: The drugs N-Acetylcysteine and Metamizole may falsely depress this assay. TRIGLYCERIDE IS GREATER THAN 400 mg/dL. LDL RESULT IS INVALID AND WILL NOT BE REPORTED. Serum Triglycerides Reference Interval Normal <150 mg/dL Borderline high 150 - 199 mg/dL High 200 - 499 mg/dL Very High > or = 500 mg/dL LAB L501.6400 mg/dL Low HDL 32 Result Comment: The drugs N-Acetylcysteine and Metamizole may falsely depress this assay. Reference Range HDL <40 mg/dL Low HDL Cholesterol HDL >or= 60 mg/dL High HDL Cholesterol LAB L501.6500 0-130 mg/dL Test Normal not performed LDL LAB L501.6600 5-40 mg/dL Test Normal not performed VLDL Performed By: #### L500.4050, L500.4100 #### [facility] [address] [place], [place], [id number] COMPREHENSIVE METABOLIC Collected: 02/21/2018 Status: F Source: [facility] 11:34 AM [facility] REPOSITORY TYPE CODE TESTS RESULT OUT OF RANGE REFERENCE UNITS LAB L501.0100 74-106 mg/dL High GLU 146 Result Comment: Fasting Glucose result greater than or equal to 126 mg/dL suggests DIABETES MELLITUS per A.D.A. criteria. Please note revised GLUCOSE reference range effective 2017. LAB L501.1000 7-18 mg/dL Normal BUN 17 LAB L501.1100 0.55-1.02 mg/dL Normal CREAT,SERUM 0.77 Result Comment: The validity of the calculated GFR AND GFRAA in patients over 70 years has not been determined. Clinical correlation is essential. LAB L501.1110 >60 mL/min Normal EST GFR 80 Result Comment: Non- GFR Calc LAB L501.1115 >60 mL/min Normal EST GFR - AA 97 Result Comment: GFR Calc LAB L501.1300 10-20 RATIO High BUN/CRE 22.1 LAB L501.1500 6.4-8.2 g/dL T Normal PROT 8.2 LAB L501.1800 3.2-5.0 g/dL Normal ALB 3.4 LAB L501.1950 2.2-4.2 g/dL High GLOB 4.8 LAB L501.2000 0.9-2.4 RATIO Low A/G 0.7 LAB L501.2200 8.5-10.1 mg/dL CA Normal 9.6 LAB L501.4100 15-37 U/L High AST 72 LAB L501.4305 45-117 U/L High ALK P 137 LAB L501.4405 13-56 U/L High ALT 64 LAB L501.4600 0.20-1.00 mg/dL T Normal BILI 0.30 LAB L501.5300 136-145 mmol/L NA Normal 140 LAB L501.5600 3.5-5.1 mmol/L K Normal 4.7 LAB L501.5900 98-107 mmol/L CL Normal 103 LAB L501.6100 21.0-32.0 mmol/L Normal CO2 29.0 LAB L501.6200 5-15 Normal GAP 8 Performed By: #### L500.4050, L500.4100, L501.9520 #### [facility] [place] [address], [address] LIPID PROFILE Collected: 02/21/2018 Status: F Source: [place] 11:34 AM [facility] REPOSITORY TYPE CODE TESTS RESULT OUT OF RANGE REFERENCE UNITS LAB L501.4900 200 mg/dL Normal CHOL 177 Result Comment: <200 mg/dL Desirable 200-240 mg/dL Borderline >240 mg/dL High Risk LAB L501.5000 mg/dL High TRIG 204 Result Comment: The drugs N-Acetylcysteine and Metamizole may falsely depress this assay. Serum Triglycerides Reference Interval Normal <150 mg/dL Borderline high 150 - 199 mg/dL High 200 - 499 mg/dL Very High > or = 500 mg/dL LAB L501.6400 mg/dL Low HDL 37 Result Comment: The drugs N-Acetylcysteine and Metamizole may falsely depress this assay. Reference Range HDL <40 mg/dL Low HDL Cholesterol HDL >or= 60 mg/dL High HDL Cholesterol LAB L501.6500 0-130 mg/dL Normal LDL 99 LAB L501.6600 5-40 mg/dL High VLDL 41 Performed By: #### L500.4050, L500.4100, L501.9520 #### [facility] [address] [place], [place], [id number] THYROID STIM HORMONE Collected: 02/21/2018 Status: F Source: [place] ([facility]) 11:34 AM [facility] REPOSITORY TYPE CODE TESTS RESULT OUT OF RANGE REFERENCE UNITS LAB L501.9520 0.358-3.74 uIU/mL Normal TSH 1.75 Performed By: #### L500.4050, L500.4100, L501.9520 #### [facility] [address] [place], [address] CBC W/DIFF, AUTOMATED Collected: 02/21/2018 Status: F Source: [place] 11:34 AM [facility] REPOSITORY TYPE CODE TESTS RESULT OUT OF RANGE REFERENCE UNITS LAB L100.1000 4.4-11.0 K/mm3 High WBC 12.6 LAB L100.1200 4.2-5.4 M/mm3 Normal RBC 4.63 LAB L100.1300 12.0-15.0 g/dl Normal HGB 12.5 LAB L100.1400 37-47 % Normal HCT 41.5 LAB L100.1500 81-99 fL Normal MCV 89.6 LAB L100.1600 27.0-32.0 pg Normal MCH 27.0 LAB L100.1700 32-36 g/gl Low MCHC 30.1 LAB L100.1810 11.6-14.6 % High RDW CV 17.3 LAB L100.1820 35.1-43.9 fl High RDW SD 56.4 LAB L100.1900 150-450 K/mm3 Normal PLT 285 LAB L100.2000 6.2-12.0 fl Normal MPV 11.3 LAB L100.2100 47-70 % Normal NEUT% 59.1 LAB L100.2200 19-41 % Normal LY% 28.1 LAB L100.2300 0-10 % Normal MONO% 6.2 LAB L100.2400 0-5 % High EO% 5.8 LAB L100.2500 0-1 % Normal BASO% 0.6 LAB L100.2550 0.0-0.9 % Normal IM GRAN % 0.200 Result Comment: IG% - Immature Granulocytes (promyelocytes, myelocytes and metamyelocytes) > 1% indicates that a LEFT SHIFT is Present. LAB L100.2620 2.0-7.7 X10 3/uL Normal Absolute Neut 7.5 LAB L100.2720 0.83-4.51 X10 3/ul Normal Absolute Lymph 3.54 Performed By: #### L100.0100 #### [facility] [address] [facility] [place], [address] HEMOGLOBIN A1C Collected: 02/21/2018 Status: F Source: [place] 11:34 AM [facility] REPOSITORY TYPE CODE TESTS RESULT OUT OF RANGE REFERENCE UNITS LAB L501.9985 4.2-6.3 % High HGB A1C 8.5 Performed By: #### L501.9985 #### [facility] [address] [facility] [place], [address] VITAMIN D,25 HYDROXY Collected: 02/21/2018 Status: F Source: [place] 11:34 AM [facility] REPOSITORY TYPE CODE TESTS RESULT OUT OF RANGE REFERENCE UNITS LAB L506.1000 29.95-100.01 ng/mL Normal Vitamin D 73.7 25-OH Result Comment: Vitamin D 25(OH) Status Range Deficiency <20 ng/mL (50nmol/L) Insuffciency 20 - 30 ng/mL (50 - 75 nmol/L) Sufficiency 30 - 100 ng/mL (75 - 250 nmol/L) Toxicity >100 ng/mL (>250 nmol/L) Performed By: #### L506.1000 #### [facility] [address] [place], [address] ALLERGIES ALLERGIES DATE TYPE / CODE NAME / CODE REACTION SEVERITY SOURCE 11/16/2014 Drug hydroxyzine Hives Unknown [place] Allergy/416 HCl/[id number](RXN Community 328433([facility] ED CT) Repository 11/16/2014 Drug hydroxyzine Hives Unknown [place] Allergy/416 pamoate/[id number] Community 803006([facility] ED CT) Repository 11/16/2014 Drug Penicillins/G64928 Hives Unknown [place] Allergy/416 0476(RXNORM) Community 717938([facility] ED CT) Repository 11/16/2014 Drug Sulfa (Sulfonamide Hives Unknown [place] Allergy/416 Antibiotics)/F0010 Community 723521([facility] ED [facility]) Repository ENCOUNTERS ENCOUNTERS ADMIT/DISCHARGE ACCOUNT ADMITTING ENCOUNTER LOCATION SOURCE NUMBER CLASS 07/24/2018 [id number] Ambulatory [place] 7 [facility] ing:[place] Repository 07/22/2018 [id number] Ambulatory [place] 9 [facility] ing:[place] Repository 07/16/2018 [id number] Ambulatory [place] 4 [facility] ing:[place] Repository 06/25/2018 [id number] Ambulatory [place] 0 [facility] ing:POLAB3 Repository 06/24/2018 [id number] Ambulatory [place] 5 [facility] ing:[place] Repository 06/17/2018 [id number] Ambulatory [place] 7 [facility] Hospital ing:[place] Repository 05/28/2018 [id number] Ambulatory [place] 5 [facility] ing:POLAB3 Repository 02/21/2018 [id number] Ambulatory [place] 5 [facility] ing:POLAB3 Repository PAYERS PAYERS ENCOUNTER GUARANTOR PAYER SUBSCRIBER SOURCE 07/24/2018 VIRAL Hahn Primary VIRAL Yen [id number] Insurance:MEDICARE SPITLERDOB: Community NII PART A BPolicy [place]: [id number] [id number] Repository 12914Xnd: (330) Date:2018-07-16 [phone] () 07/24/2018 Secondary VIRAL Hahn [place] Insurance:HUMANA SPITLERDOB: [facility] [id number] Hospital Number: Repository [id number] Date:1840-29-10TO [address] [place] [phone]: 07/24/2018 Tertiary NOT GIVENUNK [place] Insurance:SELF PAY [facility] Number: Effective Repository Date:2018-07-16 07/22/2018 VIRAL Hahn Primary VIRAL Hahn [place] [id number] Insurance:MEDICARE SPITLERDOB: Community NII PART A BPolicy Number: [id number] [id number] Repository 70185Svo: (330) Date:2018-07-22 [phone] () 07/22/2018 Secondary VIRAL Hahn [place] Insurance:HUMANA SPITLERDOB: [facility] [id number] Hospital Number: Repository [id number] Date:7234-24-73CO [address] [place] [phone]: 07/22/2018 Tertiary NOT GIVENUNK [place] Insurance:SELF PAY [facility] Number: Effective Repository Date:2018-07-22 07/16/2018 VIRAL Hahn Primary VIRAL Hahn [place] [id number] Insurance:MEDICARE SPITLERDOB: Community NII PART A BPolicy Number: [id number] [id number] Repository 12343Wuy: (330) Date:2018-06-19 [phone] () 07/16/2018 Secondary VIRAL Hahn [place] Insurance:HUMANA SPITLERDOB: Community COMMERCIALPolicy [id number] Hospital Number: Repository [id number] Date:0714-27-49TJ [address] [place] [phone]: 07/16/2018 Tertiary NOT GIVENUNK [place] Insurance:SELF PAY [facility] Hospital Number: Effective Repository Date:2018-06-19 06/25/2018 VIRAL Hahn Primary VIRAL Hahn [place] [id number] Insurance:MEDICARE SPITLERDOB: Community NII PART A BPolicy Number: [id number] [id number] Repository 48473Wpl: 330) Date:2018-06-25 [phone] () 06/25/2018 Secondary VIRAL Hahn [place] Insurance:HUMANA SPITLERDOB: Community COMMERCIALPolicy [id number] Hospital Number: Repository [id number] Date:6179-88-58TO [address] [place] [phone]: 06/25/2018 Tertiary NOT GIVENUNK [place] Insurance:SELF PAY [facility] Hospital Number: Effective Repository Date:2018-06-25 06/24/2018 VIRAL Hahn Primary VIRAL Hahn [place] [id number] Insurance:MEDICARE SPITLERDOB: Community NII PART A BPolicy Number: [id number] [id number] Repository 45810Xda: 330) Date:2018-06-13 [phone] () 06/24/2018 Secondary VIRAL Hahn [place] Insurance:HUMANA SPITLERDOB: Community COMMERCIALPolicy [id number] Hospital Number: Repository [id number] Date:0074-45-03SN [address] [place] [phone]: 06/24/2018 Tertiary NOT GIVENUNK [place] Insurance:SELF PAY [facility] Hospital Number: Effective Repository Date:2018-06-13 06/17/2018 VIRAL Hahn Primary VIRAL Hahn [place] [id number] Insurance:MEDICARE SPITLERDOB: Community NII PART A BPolicy Number: [id number] [id number] Repository 42289Jpx: 330) Date:2018-06-13 [phone] () 06/17/2018 Secondary VIRAL K [place] Insurance:HUMANA SPITLERDOB: Community [facility] [id number] Hospital Number: Repository [id number] Date:6286-87-46UQ [address] [place] [phone]: 06/17/2018 Tertiary NOT GIVENUNK [place] Insurance:SELF PAY [facility] Hospital Number: Effective Repository Date:2018-06-13 05/28/2018 VIRAL K Primary VIRAL K Farshad [id number] Insurance:MEDICARE SPITLERDOB: Community NII PART A BPolicy [place]: [id number] [id number] Repository 36680Dbs: 330) Date:2018-05-28 [phone] () 05/28/2018 Secondary VIRAL K Farshad Insurance:HUMANA SPITLERDOB: [facility] [id number] Hospital Number: Repository [id number] Date:6199-20-64VE [address] [address]WT: 05/28/2018 Tertiary NOT GIVENUNK Farshad Insurance:SELF PAY [facility] Number: Effective Repository Date:2018-05-28 02/21/2018 VIRAL K Primary VIRAL K [place] [id number] Insurance:MEDICARE SPITLERDOB: Community NII PART A BPolicy Number: [id number] [id number] Repository 87585Msz: 330) Date:2018-02-21 [phone] () 02/21/2018 Secondary VIRAL K Farshad Insurance:HUMANA SPITLERDOB: [facility] [id number] Hospital Number: Repository [id number] Date:6149-40-40AR [address] [address]SF: 02/21/2018 Tertiary NOT GIVENUNK Farshad Insurance:SELF PAY [facility] Number: Effective Repository Date:2018-02-21
== END ==
PROVIDERS: Family Provider Family Medicine Geriatric Medicine; PCP Family Medicine Geriatric Medicine; Referring Provider Internal Medicine Pulmonary Disease; Visit Provider Internal Medicine Pulmonary Disease
DX: Z87.891 Personal history of nicotine dependence (principal)
CPT/HCPCS: G0297

== ENCOUNTER → 2018-06-25 14:03 | Outpatient (CLI) | payer MEDICARE, OTHER, SELFPAY ==
[2018-06-27 05:07] LABS: HEPATITIS B SURFACE AG Negative (Negative); Hepatitis A AB, Total Negative (Negative); Hepatitis A IgM Antibody Negative (Negative); Hepatitis B Core AB IgM Negative (Negative); Hepatitis B Core Ab Total Negative (Negative); Hepatitis C Ab <0.1 s/co ratio (0.0-0.9)
[2018-06-27 15:16] LABS: Hep B Surface Antibodies Non Reactive (.)
--- OUTSIDE RECORDS SUMMARY | 2018-09-27 01:46 | XMS RPT_ITS ---
:1950 Author Organization OHIP Support Name Relationship Address Phone SALLIE STACY Unavailable [address] + [place] [address] R Unavailable Unavailable Unavailable MADDI, NELLIE Unavailable Unavailable + [place] [address] DANETTESALLIE Lee Unavailable [address] + [place] [address] R Unavailable Unavailable Unavailable MADDI, NELLIE Unavailable Unavailable + [place] [address] DANETTERosa, SALLIE Unavailable [address] + [place] [address] R Unavailable Unavailable Unavailable MADDI, NELLIE Unavailable Unavailable + [place] [address] DANETTERosa, SALLIE Unavailable [address] + [place] [address] R Unavailable Unavailable Unavailable MADDI, NELLIE Unavailable Unavailable + [place] [address] REGIS, SALLIE Unavailable [address] + [place] [address] R Unavailable Unavailable Unavailable MADDI, NELLIE Unavailable Unavailable + [place] [address] DANETTERosa, SALLIE Unavailable [address] + [place] [address] R Unavailable Unavailable Unavailable MADDI, NELLIE Unavailable Unavailable + [place] [address] REGIS, SALLIE Unavailable [address] + [place] [address] D Unavailable Unavailable Unavailable MADDI, NELLIE Unavailable Unavailable + [place] [address] REGIS, SALLIE Unavailable [address] + [place] [address] D Unavailable Unavailable Unavailable MADDI, NELLIE Unavailable Unavailable + [place] [address] Care Team Providers Name Role Phone Iam [...] I10 - Essential Riccardo, Mt [facility] Active [place] (primary) Community hypertension / Hospital I10(ICD-10) Repository PROCEDURES PROCEDURES No Procedure Records FoundRESULTS RESULTS CREATININE FINGERSTICK Collected: 07/22/2018 Status: F Source: [place] 12[facility] PM [facility] TYPE CODE TESTS RESULT OUT OF RANGE REFERENCE UNITS LAB L9100.0210 0.55-1.02 mg/dL Normal CREATININE WB 0.9 LAB L9100.0220 >60 mL/min EGFR WB Normal > 60.0000 Performed By: #### L9100.0200 #### [facility] Point of Care [address] [place] [address] CTA CHEST W/WO Observed: 07/22/2018 Status: F Source: [place] CONTRAST 12:08 PM [facility] REPOSITORY [facility] Imaging Services [address] [place] [address] CTA Chest W/WO Contrast MR#: [id number] Acct: [id number] Name: VIRAL RODGERS Rep #: [id number] : 1950 F 67 From: Gm Fermin MD PCP: Mt Gu MD, Chi Status: REG CLI Study: CTA Chest W/WO Contrast Date of Exam: 07/22/18 Exam# [id number] Ordering Dr: Mt Gu MD STUDY: CTA [...] Gm Fermin MD at 13:30 EST Tel [phone], Service support , CC: Mt Gu MD Veterans Adviser: Signed BASIC METABOLIC Collected: 07/22/2018 Status: F Source: [place] PROFILE (BMP) 11:52 AM [facility] REPOSITORY TYPE CODE TESTS RESULT OUT OF [...] GAP 9 Performed By: #### L500.2500 #### [facility] [address] [place], [address] D-DIMER QUANTITATIVE Collected: 07/22/2018 Status: F Source: [place] (DVT/PE) 11:52 AM [facility] REPOSITORY TYPE CODE TESTS RESULT OUT OF RANGE REFERENCE UNITS LAB L300.8000 0.27-0.49 FEU/ug/m High alert D-DIMER 0.81 QUANT Result Comment: CRITICAL VALUE VERIFIED. CALLED TO LIZETT 07/22/18 Shalonda Romero. RESULTS READ BACK BY EZRACHAVA . D-Dimer ELEVATED (>0.49): Additional studies and clinical assessments are indicated to conclude diagnosis of: Deep Vein Thrombosis (DVT) or Pulmonary Embolism (PE) Performed By: #### L300.8000 #### [facility] [address] [place], [address] [place] - INDIVIDUAL Observed: 07/20/2018 Status: F Source: [place] TREATMENT PLAN 10:40 AM [facility] REPOSITORY [facility] Pulmonary Rehab Reports [address] [facility] [place] [address] [place] - Individual Treatment Plan MR#: [id number] Acct: [id number] Name: VIRAL RODGERS Rep #: [id number] : 1950 67 From: Samy Herron ELECTRONIC COURT RECORDER, PET CAREGIVER, BS PCP: Riccardo HAYES,[facility] [place] General Information - General Information Admitting Diagnosis: COPD Gold Classification:: GOLD 3: Severe - PFT FEV1:: 2.16 FVC:: 3.53 FEV1/FVC%:: 61 - Education/Goals Barriers to Learning: Vision Impairment Individual Counseling: Initial Assessment: Dyspnea control techniques at rest, activity, and ADLs, Exacerbation prevention AND management, Nutrition AND weight management, Home exercise plan AND guidelines, Advanced directives - Poker Prop Player to see patient Patient Goals: Breathe better: Initial Assessment, Increase endurance/stamina: Initial Assessment, Return to recreation/hobby: Initial Assessment, Improve weight: Initial Assessment Exercise - Initial Assessment - Visit Date of Eval: 07/16/18 - initial ITP start - Problem/Goals Problems: Deconditioning, No regular exercise, Knowledge deficit exercise guidelines, Knowledge deficit exercise safety Goals:: Aerobic exercise 30-60 mins x 9 weeks, [place]: 2-3/wk - Exercise Prescription Mode:: Treadmill, Airdyne, [...] Signature: Date Jordi Rodriguez MD CC: Signed [place] - HISTORY AND Observed: 07/20/2018 Status: F Source: [place] PHYSICAL 10:40 AM [facility] REPOSITORY [facility] Pulmonary Rehab Reports [address] [place] [address] [place] - History AND Physical MR#: [id number] Acct: [id number] Name: VIRAL RODGERS Rep #: [id number] : 1950 67 From: Sadie Lopez FIELD CANE SCALER HELPER PCP: Mt Gu MD, Chi History of [...] [Glucophage] 500 mg PO BIDCM 11/16/14 Tiotropium Hanna [Spiriva 18 MCG] 1 puff INHALATION DAILY [...] Advanced Directives - Advanced Directives Power of Mig Tig Welder: Yes Living Will: Yes Advance Directives Information Provided: Yes Advance Directives on File: No - Guest Service Supervisor to see patient DNR Order?:: Yes - [...] = Denies (Slash). Left click = Reports ([place]) Respiratory: Reports: SOB upon Exertion, Wheezing, Appetite, [...] 07/16/18 1034 <Electronically signed by Sadie Lopez FIELD CANE SCALER HELPER> Date Sadie Lopez FIELD CANE SCALER HELPER Outcome assessment reviewed. Exercise plan approved as [...] 06/25/2018 Status: F Source: [place] 2:08 PM [facility] REPOSITORY TYPE CODE TESTS RESULT OUT OF RANGE REFERENCE UNITS LAB L3100.0200 Negative Normal HEP A Negative IgM 6734 LAB L3100.0300 Negative Normal HEP A Negative AB,T.6726 LAB L3100.0400 Negative Normal HB Negative SURF AG LAB L3100.0440 Negative Normal HB Negative CORE [id number] LAB L3100.0460 Negative Normal HEP B Negative [...] exists to indicate HCV infection. Performed at: [facility] [address] [id number] Specialty Sales Representative: Hernesto Cesar PhD, Phone: [phone] Performed By: #### L3000.0700 #### [facility] (refer to report for specific site) refer to report for address and phone number LOW DOSE CT LUNG Observed: 06/24/2018 Status: F Source: [place] SCREENING 1:24 PM [facility] REPOSITORY [facility] Imaging Services [address] [place] [address] Lung Screening MR#: [id number] Acct: [id number] Name: VIRAL RODGERS Rep #: [id number] : 1950 F 67 From: Albert Ca MD PCP: Riccardo HAYES,[facility] Status: [facility] Study: Low Dose CT Lung Screening Date of Exam: 06/24/18 Exam# [id number] Ordering Dr: Iam Bee MD STUDY: LOW [...] CC: Iam Bee MD; Mt Gu MD Veterans Adviser: Signed ABDOMEN LIMITED Observed: 06/17/2018 Status: F Source: [place] 7:58 AM [facility] REPOSITORY [facility] Imaging Services [address] [place] [address] [place] [address] Abdomen Limited MR#: [id number] Acct: [id number] Name: VIRAL RODGERS Rep #: [id number] : 1950 F 67 From: Alexandra Erazo MD PCP: Mt Gu MD, Chi Status: REG CLI Study: Abdomen Limited Date of Exam: 06/17/18 Exam# [id number] Ordering Dr: Mt Gu MD STUDY: ABDOMINAL [...] Service support , CC: Mt Gu MD Veterans Adviser: Signed CBC W/DIFF, AUTOMATED Collected: 05/28/2018 Status: F Source: [place] 12:10 PM [facility] REPOSITORY TYPE CODE TESTS RESULT OUT OF [...] Lymph 2.93 Performed By: #### L100.0100 #### [facility] [address] [place], [place], [address] COMPREHENSIVE METABOLIC Collected: 05/28/2018 Status: F Source: [facility] 12:10 PM [facility] REPOSITORY TYPE CODE TESTS RESULT OUT OF [...] 12 Performed By: #### L500.4050, L500.4100 #### [facility] [address] [place], [place], [address] LIPID PROFILE Collected: 05/28/2018 Status: F Source: [place] 12:10 PM [facility] REPOSITORY TYPE CODE TESTS RESULT OUT OF [...] VLDL Performed By: #### L500.4050, L500.4100 #### [facility] [address] [place], [place], [address] COMPREHENSIVE METABOLIC Collected: 02/21/2018 Status: F Source: [facility] 11:34 AM [facility] REPOSITORY TYPE CODE TESTS RESULT OUT OF [...] Performed By: #### L500.4050, L500.4100, L501.9520 #### [facility] [place], [address] LIPID PROFILE Collected: 02/21/2018 Status: F Source: [place] 11:34 AM [facility] REPOSITORY TYPE CODE TESTS RESULT OUT OF [...] Performed By: #### L500.4050, L500.4100, L501.9520 #### [facility] [address] [place], [place], [address] THYROID STIM HORMONE Collected: 02/21/2018 Status: F Source: [place] (TSH) 11:34 AM [facility] REPOSITORY TYPE CODE TESTS RESULT OUT OF RANGE REFERENCE UNITS LAB L501.9520 0.358-3.74 uIU/mL Normal TSH 1.75 Performed By: #### L500.4050, L500.4100, L501.9520 #### [facility] [address] [place], [address] CBC W/DIFF, AUTOMATED Collected: 02/21/2018 Status: F Source: [place] 11:34 AM [facility] REPOSITORY TYPE CODE TESTS RESULT OUT OF [...] Lymph 3.54 Performed By: #### L100.0100 #### [facility] [address] [place], [address] HEMOGLOBIN A1C Collected: 02/21/2018 Status: F Source: [place] 11:34 AM [facility] REPOSITORY TYPE CODE TESTS RESULT OUT OF RANGE REFERENCE UNITS LAB L501.9985 4.2-6.3 % High HGB A1C 8.5 Performed By: #### L501.9985 #### [facility] [address] [place], [address] VITAMIN D,25 HYDROXY Collected: 02/21/2018 Status: F Source: [place] 11:34 AM [facility] REPOSITORY TYPE CODE TESTS RESULT OUT OF RANGE REFERENCE UNITS LAB L506.1000 29.95-100.01 ng/mL Normal Vitamin D 73.7 25-OH Result Comment: Vitamin D 25(OH) Status Range Deficiency <20 ng/mL (50nmol/L) Insuffciency 20 - 30 ng/mL (50 - 75 nmol/L) Sufficiency 30 - 100 ng/mL (75 - 250 nmol/L) Toxicity >100 ng/mL (>250 nmol/L) Performed By: #### L506.1000 #### [facility] [address] [place], [address] ALLERGIES ALLERGIES DATE TYPE / CODE NAME / CODE REACTION SEVERITY SOURCE 11/16/2014 Drug hydroxyzine Hives Unknown [place] Allergy/416 HCl/[id number](RXN Community 443193([facility] ED CT) Repository 11/16/2014 Drug hydroxyzine Hives Unknown [place] Allergy/416 pamoate/[id number] Community 047746([facility] ED CT) Repository 11/16/2014 Drug Penicillins/Y52579 Hives Unknown [place] Allergy/416 0476(RXNORM) Community 945171([facility] ED CT) Repository 11/16/2014 Drug Sulfa (Sulfonamide Hives Unknown Farshad Allergy/416 Antibiotics)/F0010 Community 628963([facility] [address] ED CT) Repository ENCOUNTERS ENCOUNTERS ADMIT/DISCHARGE ACCOUNT ADMITTING ENCOUNTER LOCATION SOURCE NUMBER CLASS 07/24/2018 [id number] Ambulatory [place] Farshad 7 [facility] ing:[place] Repository 07/22/2018 [id number] Ambulatory [place] Parks 9 [facility] ing:[place] Repository 07/16/2018 [id number] Ambulatory [place] Farshad 4 [facility] ing:[place] Repository 06/25/2018 [id number] Ambulatory Farshad Farshad 0 [facility] ing:POLAB3 Repository 06/24/2018 [id number] Ambulatory [place] Parks 5 [facility] ing:[place] Repository 06/17/2018 [id number] Ambulatory Farshad Farshad 7 [facility] Hospital ing:[place] Repository 05/28/2018 [id number] Ambulatory Farshad Parks 5 [facility] ing:POLAB3 Repository 02/21/2018 [id number] Ambulatory [place] Farshad 5 [facility] ing:POLAB3 Repository PAYERS PAYERS ENCOUNTER GUARANTOR PAYER SUBSCRIBER SOURCE 07/24/2018 VIRAL Hahn Primary VIRAL Yen [id number] Insurance:MEDICARE SPITLERDOB: Community NII PART A BPolicy Number: [id number], [place] [id number] Repository [address]Asi: (330) Date:2018-07-16 [phone] () 07/24/2018 Secondary VIRAL Hahn Farshad Insurance:HUMANA SPITLERDOB: [facility] [id number] Hospital Number: Repository [id number] Date:2059-97-87IL [address] [place] [address]OG: 07/24/2018 Tertiary NOT GIVENUNK Farshad Insurance:SELF PAY [facility] Number: Effective Repository Date:2018-07-16 07/22/2018 VIRAL Hahn Primary VIRAL Hahn Farshad [id number] Insurance:MEDICARE SPITLERDOB: Community NII PART A BPolicy Number: [id number], [place] [id number] Repository [address]Ttw: (330) Date:2018-07-22 [phone] () 07/22/2018 Secondary VIRAL Hahn Farshad Insurance:HUMANA SPITLERDOB: [facility] [id number] Hospital Number: Repository [id number] Date:9673-70-64WG [address] [place] [address]AI: 07/22/2018 Tertiary NOT GIVENUNK Parks Insurance:SELF PAY [facility] Hospital Number: Effective Repository Date:2018-07-22 07/16/2018 VIRAL Hahn Primary VIRAL Hahn Parks [id number] Insurance:MEDICARE SPITLERDOB: Community NII PART A BPolicy Number: [id number], [place] [id number] Repository [address]Apu: (330) Date:2018-06-19 [phone] () 07/16/2018 Secondary VIRAL Hahn [place] Insurance:HUMANA SPITLERDOB: Community COMMERCIALPolicy [id number] Hospital Number: Repository [id number] Date:5732-32-35SU [address] [place] [address]MS: 07/16/2018 Tertiary NOT GIVENUNK [place] Insurance:SELF PAY [facility] Number: Effective Repository Date:2018-06-19 06/25/2018 VIRAL Hahn Primary VIRAL Hahn Parks [id number] Insurance:MEDICARE SPITLERDOB: Community NII PART A BPolicy Number: [id number], [place] [id number] Repository [address]Suv: 330) Date:2018-06-25 [phone] () 06/25/2018 Secondary VIRAL Hahn Farshad Insurance:HUMANA SPITLERDOB: Community COMMERCIALPolicy [id number] Hospital Number: Repository [id number] Date:9150-54-95BT [address] [place] [address]OM: 06/25/2018 Tertiary NOT GIVENUNK Farshad Insurance:SELF PAY [facility] Number: Effective Repository Date:2018-06-25 06/24/2018 VIRAL Hahn Primary VIRAL Hahn Parks [id number] Insurance:MEDICARE SPITLERDOB: Community NII PART A BPolicy Number: [id number], [place] [id number] Repository [address]Spp: 330) Date:2018-06-13 [phone] () 06/24/2018 Secondary VIRAL Hahn Parks Insurance:HUMANA SPITLERDOB: Community COMMERCIALPolicy [id number] Hospital Number: Repository [id number] Date:1028-09-03NZ [address] [place] [address]EA: 06/24/2018 Tertiary NOT GIVENUNK Parks Insurance:SELF PAY [facility] Number: Effective Repository Date:2018-06-13 06/17/2018 VIRAL Hahn Primary VIRAL Hahn Parks [id number] Insurance:MEDICARE SPITLERDOB: Community NII PART A BPolicy Number: [id number], [place] [id number] Repository [address]Cyx: 330) Date:2018-06-13 [phone] () 06/17/2018 Secondary VIRAL K Parks Insurance:HUMANA SPITLERDOB: [facility] [id number] Hospital Number: Repository [id number] Date:3945-14-19WT [address] [place] [address]BC: 06/17/2018 Tertiary NOT GIVENUNK Parks Insurance:SELF PAY [facility] Hospital Number: Effective Repository Date:2018-06-13 05/28/2018 VIRAL K Primary VIRAL K Farshad [id number] Insurance:MEDICARE SPITLERDOB: Community NII PART A BPolicy Number: [id number], [place] [id number] Repository [address]Obx: 330) Date:2018-05-28 [phone] () 05/28/2018 Secondary VIRAL K Farshad Insurance:HUMANA SPITLERDOB: [facility] [id number] Hospital Number: Repository [id number] Date:3522-19-42LB [address] [address]RQ: 05/28/2018 Tertiary NOT GIVENUNK Farshad Insurance:SELF PAY [facility] Hospital Number: Effective Repository Date:2018-05-28 02/21/2018 VIRAL K Primary VIRAL K Parks [id number] Insurance:MEDICARE SPITLERDOB: Community NII PART A BPolicy Number: [id number], [place] [id number] Repository [address]Ell: 330) Date:2018-02-21 [phone] () 02/21/2018 Secondary VIRLA K Farshad Insurance:HUMANA SPITLERDOB: [facility] [id number] Hospital Number: Repository [id number] Date:0612-68-54XA [address] [address]HH: 02/21/2018 Tertiary NOT GIVENUNK Farshad Insurance:SELF PAY [facility] Number: Effective Repository Date:2018-02-21
== END ==
PROVIDERS: Family Provider Family Medicine Geriatric Medicine; PCP Family Medicine Geriatric Medicine; Visit Provider Family Medicine Geriatric Medicine
DX: K76.9 Liver disease, unspecified (principal)
CPT/HCPCS: 36415; 86704; 86705; 86706; 86708; 86709; 86803; 87340

== ENCOUNTER → 2018-07-16 09:18 | Outpatient (CLI) | payer MEDICARE, OTHER, SELFPAY ==
--- NOTE | 2018-07-16 09:58 | PCM.PR.HP ---
History of Present Illness Arrival date:: 07/16/18 Arrival time:: 09:30 Date of Referral:: 06/13/18 Date of Evaluation: 07/16/18 Referring Physician: Dr. Bee Primary Diagnosis: COPD History of Present Illness: 67 yr old female with COPD mMRC Breathless Scale: When is the patient short of breath? Y/N Grade: Description of Breathlessness: 0 I only get breathless with strenuous exercise. 1 I get short of breath when hurrying on level ground or walking up a slight hill. 2 On level ground, I walk slower than people of the same age because of breathless, or have to stop for breath when walking at my own pace. 3 I stop for breath after walking 100 yards or after a few minutes on level ground. 4 I am too breathless to leave the house or I am breathless when dressing. Respiratory Problems: Yes: Fatigue, Wheezing, Able to Speak in Full Sentences, Hoarseness, Dyspnea with Activity, Dyspnea Lying Down Flat No: Retain Secretions, Limited Range of Motion, Chest Pain, Dizziness, Ankle Swelling, Anxiety, Panic, Dyspnea at Rest, Cough with Secretions Home Medications: Home Medications Albuterol Sulfate [Proventil Hfa] 6.7 gm IH 4X/DAY 11/16/14 Aspirin 325 mg PO DAILY@0800 11/16/14 Atorvastatin Calcium [Lipitor] 80 mg PO QHS 11/16/14 Cyclobenzaprine [Flexeril] 10 mg PO BID 11/16/14 Doxepin HCl [Sinequan] 20 mg PO QHS 11/16/14 Ergocalciferol [Vitamin D] 50,000 unit PO Q7D 11/16/14 Fluticasone/Salmeterol [Advair 100/50 Diskus] 1 puff INHALATION BID 11/16/14 Hydrochlorothiazide [Hctz] 25 mg PO DAILY 11/16/14 Insulin Detemir [Levemir (BKC)] 70 units SC QHS 11/16/14 Lansoprazole [Prevacid] 30 mg PO DAILY 11/16/14 Levothyroxine [Synthroid] 25 mcg PO DAILY 11/16/14 Lisinopril [Zestril] 5 mg PO DAILY 11/16/14 Meloxicam [Mobic] 15 mg PO DAILY 11/16/14 Metformin HCl [Glucophage] 500 mg PO BIDCM 11/16/14 Tiotropium [place] [Spiriva 18 MCG] 1 puff INHALATION DAILY 11/16/14 traMADol [Ultram (G)] 50 mg PO Q6H PRN PRN 11/16/14 DiphenhydrAMINE [Benadryl] 50 mg PO BID 11/17/14 Oxycodone HCl/Acetaminophen [Percocet 5/325] 1 - 2 tablet PO Q4H PRN PRN #30 tablet 11/17/14 Allergies/Adverse Reactions: Allergies hydroxyzine HCl [From Vistaril] Allergy (Verified 11/16/14 15:21) Hives hydroxyzine pamoate [From Vistaril] Allergy (Verified 11/16/14 15:21) Hives Penicillins [PCN] Allergy (Verified 11/16/14 15:21) Hives Sulfa (Sulfonamide Antibiotics) Allergy (Verified 11/16/14 15:21) Hives - Secretions Cough:: No Hx of Sleep Apnea: No Do you snore loudly (louder than talking or can be heard through closed doors)?: No Do you often feel tired/ fatigued/ sleepy during daytime?: No Has anyone observed you stop breathing during sleep?: No History of Hypertension (for STOP score): No STOP Results: Negative Medical Utilization Do you use a peak flow meter at home?: No Do you use a spacer device with your inhalers?: No Number of hospital visits in the last year?: 0 Number of emergency room visits in the last year?: 0 Do you see your physician on a regular schedule?: Yes How often?: twice for regular and once for pulmonary Advanced Directives - Advanced Directives Power of Marketing Database Consultant: Yes Living Will: Yes Advance Directives Information Provided: Yes Advance Directives on File: No - Tripe Finisher to see patient DNR Order?:: Yes - MOLST See MOLST form: No Past Medical History Medical History: Past Medical History (Last Updated 07/16/18 @ 10:16 by Sadie Lopez, DAVID) Arthritis M19.90 Cervical pain (neck) M54.2 Diabetes mellitus E11.9 Fibromyalgia M79.7 GERD (gastroesophageal reflux disease) K21.9 Osteoarthritis M19.90 Vascular disease I99.9 COPD (chronic obstructive pulmonary disease) J44.9 Hypertension I10 Surgical History: Past Surgical History (Last Updated 07/16/18 @ 10:17 by Sadie Lopez RRT) H/O hernia repair Z98.890, Z87.19 Previous back surgery Z98.890 S/P insertion of spinal cord stimulator Z98.890 - Current/ Previous Services Pulmonary Rehab:: No Social History - Smoking History Smoking Status: Former smoker Years Smokin Packs Smoked per Day: 1 Hx Smoking Cessation Date: Jul 09 2017 Hx Tobacco Use: Yes Hx Smoking Exposure: No - Alcohol Use Alcohol Usage: Yes - social - Substance Abuse Hx Substance Use: No - Occupation Occupation (List type of work in comments):: Retired - Hobbies, Recreation, Social Activities Hobbies: None, Other - camp Recreational Activities: I am able to engage in most, but not all activities Functioning ADL/IADL - Current Ability Current Ability: Independent Self-Care (e.g.,grooming, dressing, & bathing), Independent Ambulation, Independent Transfer, Independent Household tasks (e.g., light meal prep, laundry, shopping) - slower pace - Pt Functioning Prior to Problem Prior Functioning: Self-Care (e.g.,grooming, dressing, & bathing): Independent, Ambulation: Independent, Transfer: Independent, Household tasks (e.g., light meal prep, laundry, shopping): Independent Social Environment - Status Marital Status: - Current Living Arrangements Living Environment:: Alone - Children How many children do you have?: 2 - Decreased Do any of your children live nearby?: No - Safety Do you feel safe in your surroundings?: Yes - Assistance Do you need any assistance at home?: no Review of Systems Review of Systems: Right click = Denies (Slash). 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 Denies: Cough, Hemoptysis, Pleuritic Pain, SOB at Rest, Sputum production, Dizziness/Lightheadedness, Sexual changes Is Patient Pain Free?: No Pain Location: back Pain Level: 5/10 Previous experience dealing with pain?: lower back Risk Factor Assessment - Chief Complaint Chief Complaint: COPD - Vital Signs Temperature: 98.7 F Pulse Rate: 120 Pulse Rhythm: Regular Respiratory Rate: 20 Pulse Ox: 90 Blood Pressure: 128/64 Nailbeds:: pink - Diabetes Diabetic History: Type II, Insulin Dependent - Obesity Height: 1.68 m Weight:: 99.79 kg Weight in Pounds: 220.0 lbs Weight Source: Stated by Patient Body Mass Index (BMI): 35.5 Nutritional Referral for Obesity: Yes - Physical Activity Physical Inactivity: None - Risk Stratification Risk Guidelines: Lowest Risk: Risk Factor for Smoking, Risk Factor for Dyslipidemia, Risk Factor for Diabetes, Risk Factor for Hypertension, Risk Factor for Depression, Highest Risk: Risk Factor for Obesity, Risk Factor for Sedentary Lifestyle - For Smoking Smoking Risk Guidelines: Smoking Low Risk: None or quit greater than 6 months ago. Smoking Moderate Risk: Smoker or quit 6 months or less ago. Smoking High Risk: Smoker - For Dyslipidemia Dyslipidemia Risk Guidelines: Low Risk: Moderate Risk: High Risk: 15-25% fat 25.1-29% fat >/= 30% fat. <7% sat fat 7-9% sat fat >9% sat fat. <150 mg chol 150-299 mg chol >/= 300 mg chol. LDL <100 LDL 100-129 LDL >/= 130. Chol/HDL ratio <5.0 Chol/HDL ratio 5.0-6.0 Chol/HDL ratio >6.0. Triglycerides <100 Triglycerides 100-149 Triglycerides >/= 150 - For Diabetes Mellitus Diabetes Risk Guidelines: Diabetes Low Risk: HgA1c <6.5% and/or FBG <120. Diabetes Moderate Risk: HgA1c 6.6-7.9% and/or FBG 120-180. Diabetes High Risk: HgA1c >/= 8% and/or FBG >180 - For Obesity/Overweight Obesity/Overweight Risk Guidelines: Obesity Low Risk: BMI <25.0. Obesity Moderate Risk: BMI 25-29.9. Obesity High Risk: BMI >/= 30.0 - For Hypertension Hypertension Risk Guidelines: Hypertension Low Risk: Systolic <120 and Diastolic <80. Hypertension Moderate Risk: Systolic 120-139 and Diastolic 80-89. Hypertension High Risk: Systolic >/= 140 and Diastolic >/= 90 - For Sedentary Lifestyle Sedentary Lifestyle Risk Guidelines: Sedentary Lifestyle Low Risk: >/= 1,500 kcal/week. Sedentary Lifestyle Moderate Risk: 700-1,499 kcal/week. Sedentary Lifestyle High Risk: < 700 kcal/week - For Depression Depression Risk Guidelines: Depression Low Risk: Not clinically depressed. Depression Moderate Risk: Mildly depressed. Depression High Risk: Clinically depressed Motivation - Motivation to Participate On a scale of 1 to 10, how prepared are you to commit to attending program?: 10 What do you see as barriers to successfully being able to complete the program?: 10 What do you see as the benefits of succesfully completing the program? In other words, what do you hope to get out of participating in the program?: 10 Are there issues you are dealing with that will interfere with completing the program?: 9 Do you have a spouse or signficant other, family or friends who will help support you to complete the program?: 0 Diagnostic Data Review - Pulmonary Function Test FEV1:: 0 - pending results
[2018-07-16 10:32] VITALS: BP 128/64; PULSE 120; RESP 20; TEMP 37.1; O2SAT 90; BMI 35.5
--- NOTE | 2018-07-16 10:49 | PCM.PR.DAT ---
Dates of Coverage Times for Dates Of Coverage; All dates of coverage are for physician supervision/neuropsychology medical consultant for during the times of 08:00 AM through 4:30 PM. Effective Mar 09, 2013 our hours will be changing to 8:00 to 4:30 on Sunday, Sunday and Sunday. First Date of the Month: 07/16/18 Last Date of the Month: 08/08/18
--- NOTE | 2018-07-16 10:53 | PR.ITP_ITS ---
General Information - General Information Admitting Diagnosis: COPD Gold Classification:: GOLD 3: Severe - PFT FEV1:: 2.16 FVC:: 3.53 FEV1/FVC%:: 61 - Education/Goals Barriers to Learning: Vision Impairment Individual Counseling: Initial Assessment: Dyspnea control techniques at rest, activity, and ADLs, Exacerbation prevention & management, Nutrition & weight management, Home exercise plan & guidelines, Advanced directives - Scene Shifter to see patient Patient Goals: Breathe better: Initial Assessment, Increase endurance/stamina: Initial Assessment, Return to recreation/hobby: Initial Assessment, Improve weight: Initial Assessment Exercise - Initial Assessment - Visit Date of Eval: 07/16/18 - initial ITP start - Problem/Goals Problems: Deconditioning, No regular exercise, Knowledge deficit exercise guidelines, Knowledge deficit exercise safety Goals:: Aerobic exercise 30-60 mins x 9 weeks, MO: 2-3/wk - Exercise Prescription Mode:: Treadmill, Airdyne, NuStep, Arm Ergometer Frequency (x/week): 3 Duration:: 30-45 min MET LEVEL:: 2.5 HR (bpm):: 116 - rest HR + 20 BPM Exercise Progression: 0.5-1.0 MET RPE 11-14/week - Plan Plan and Plan to Review:: Benefits of exercise, Core components of exercise, How to measure dyspnea level, How to monitor dyspnea level, Exercise intensity, Exercise safety guideline, Home exercise guidelines, Jose: 3-4/-13 Disease Management - Initial - Problems/Goals-Medications Medication Problems:: Incorrect inahled Rx use, technique Medication Goals: Adherence to prescribed medications, Correct technique/timing & care of MDI, DPI, nebulizer, and spacer. - Problems/Goals-Bronchial Hygiene Bronchial Hygiene Problems:: Respiratory infection Prevention/Management Bronchial Hygiene Goals:: Pt describes signs and symptoms of infection. - Initial Assessment SpO2:: 90 FiO2:: 21 Does pt report taking home meds as prescribed?: Yes Medications: Yes MDI, Yes NEB, No Spacer - will instruct in use of spacer and MDI device Patient Reports:: No cough - Plans Hypoxemia Plan:: Monitor SpO2 rest & with exercise, Train appropriate O2 use at rest, Train appropriate O2 use with exercise, Train O2 safety & systems Reviewed prescribed medications:: Purpose, Schedule, Side effects, Importance of compliance Instruct correct technique/timing & care:: MDI, DPI, Nebulizer, Return demo use of inhaler Bronchial Hygiene Plan: Controlled cough, Vibratory PEP device, Hydration, Hand hygiene, When to call MD, Signs/symptoms to report: Psychosocial - Initial Assess - Problems/Goals Problems: Impaired Q.O.L. Psychosocial Goals: Improved Q.O.L. - Psychosocial Test Depression:: Anxiety, Panic, Impaired QOL Referred to MD for counseling:: No - Plan Reviewed screening results: Yes Instructions given regarding:: Benefits of exercise, Relaxation techniques, Training in coping strategies Tobacco - Initial Assessment - Program Goals Tobacco Program Goals: Complete smoking cessation. Attend education classes. Improve Knowledge Test score - Stage of Change Stages of Change:: Action - Learning Barriers Learning Barriers: Vision, Ready to Learn - Family Support Do you have family support?: Yes - Tobacco Use Tobacco Use: Non-smoker - former smoker quit 07/16/2017 Years Smokin Do you use smokeless tobacco?: No - Intervention Smoking Cessation Referral:: No Individual Education/Counseling:: No Education Schedule Given:: Yes - Education Gave Education Materials For:: Tobacco Triggers, Pulmonary Disease, Risk Factors, Breathing Techniques, Medical Compliance, Pulmonary A&P, Exacerbation Signs & Symptoms, Stress & Relaxation Nutrition/Wt Mgmt - Initial - Problems/Goals Problems: Overweight Goals: Wt Loss 1-2 lbs per week, Waist circumference - Weight Management Knowledge Deficit Management of:: Overweight Admit Height:: 5 ft 6 in Admit Weight:: 216 lb Admit BMI:: 34.8 - Diabetes Diabetes:: Yes Insulin: Yes Do you monitor your blood sugar at home?: Yes - Intervention Referral to dietitian:: No - patient declined Referral to Diabetic Clinic:: No - patient declined Will attend diet classes:: Yes - Plan Nutrition Plan: Yes Review BMI or WC & identify target wt & strategies for wt control, Yes Nutrition education class:, Yes Weight control education class:, Yes Education re: Need for ongoing weight monitoring Patient Health Questionnaire Initial Assessment 1. Little interest or pleasure in doing things: Not at all 2. Feeling down, depressed, or hopeless: Not at all 3. Trouble falling or staying asleep, or sleeping too much: Several days 4. Feeling tired or having little energy: More than half the days 5. Poor appetite or overeating: Not at all 6. Feeling bad about yourself -- or that you are a failure or have let yourself or your family down: Not at all 7. Trouble concentrating on things, such as reading the newspaper or watching television: Not at all 8. Moving or speaking so slowly that other people could have noticed. Or the opposite - being so fidgety or restless that you have been moving around a lot more than usual: Not at all 9. Thoughts that you would be better off , or of hurting yourself in some way: Not at all How difficult have these problems made it for you to do your work, take care of things at home, or get along with other people?: Somewhat difficult Total Score: 3 COPD Knowledge Test Initial COPD is a lung disease that:: Makes it hard to breathe & gets worse over time In the [place] the term COPD describes 2 main lung conditions:: Emphysema & chronic bronchitis The most common lung irritant that causes COPD is:: Cigarette smoke Common signs and symptoms of COPD include:: An ongoing cough/cough that produces a large amount of mucus, & SOB If you have COPD, what steps can you take?: All of the above Swelling of the ankles is common in COPD:: False Fatigue [tiredness] is common in COPD:: True Wheezing is common in COPD:: True Crushing chest pain is common in COPD:: False Rapid weight loss is common in COPD:: False Breathlessness is a normal response to exercise: True Exercise should be avoided if it makes you short of breath: False All bronchodilators act within 10 minutes: True A spacer device increases the medication to the lungs: True Annual flu vaccine is recommended for pts w/lung disease: True COPD Knowledge Test Total Score:: 14 COPD Assessment Test [CAT] - Questions Never cough = 0, Cough all the time = 5: 0 No phlegm = 0, Chest full of phlegm = 5: 0 No chest tightness = 0, Chest very tight = 5: 0 No breathless w/exertion = 0, Very breathless w/exertion = 5: 4 No limitations w/activity = 0, Very limited w/activity = 5: 4 Confident leaving home = 0, Not at all confident = 5: 1 Sleep soundly = 0, Don't sleep soundly = 5: 1 Lots of energy = 0, No energy at all = 5: 5 Total CAT score:: 15 Self-Efficacy Initial Assessment We would like to know how confident you are in doing certain activities. Please select your confidence level for:: Select your confidence level for the following using the scale 1-10 where 1 is not at all confident and 10 is totally confident. Your score is the average of all 6 responses. Fatigue: How confident are you that you can keep the fatigue caused by your disease from interfering with the things you want to do? Select Number: 7 Physical Discomfort or Pain: How confident are you that you can keep the physical discomfort or pain of your disease from interfering with the things you want to do? Select Number: 5 Emotional Distress: How confident are you that you can keep the emotional distress caused by your disease from interfering with the things you want to do? Select Number: 8 Other Symptoms or Health Problems: How confident are you that you can keep other symptoms or health problems from interfering with the things you want to do? Select Number: 8 Different Tasks and Activities: How confident are you that you can do the different tasks and activities needed to manage your health condition so as to reduce your need to see a doctor? Select Number: 10 Medication: How confident are you that you can do things other than just taking medication to reduce how much your illness affects your everyday life? Select Number: 10 Total Score:: 8 Nutrition Survey - Nutrition Survey Instructions Scoring Instructions: Scoring is as follows: Yes = 1 points. No = 0 point. Patient score that is >/=12 is considered to be at potential nutritional risk and could benefit from a referral to a registered dietitian. - Nutrition Survey Initial Have you lost >10 lbs over the past 2 months without trying?: No Are you following a special diet at home for diabetes, low fat, or low salt?: No Are you interested in meeting with a dietitian for help understanding your diet?: No Do you eat less than 3 meals a day?: No Do you eat fatty meats (hines, sausage, ribs, etc), fried foods, desserts, large amounts of salad dressings, margarine, butter, or cheese most days?: Yes Do you have food allergies? [Enter types in comment field]: No Do you eat in restaurants more than 3 times a week?: No Do you season food with salt, seasoning salt, or garlic salt?: Yes Do you used canned, boxed, frozen meals, or soups, seasoning packets?: Yes Total Score:: 3
[2018-07-16 11:14] VITALS: O2SAT 90; BMI 34.8
== END ==
PROVIDERS: Family Provider Family Medicine Geriatric Medicine; PCP Family Medicine Geriatric Medicine; Referring Provider Internal Medicine Pulmonary Disease; Visit Provider Internal Medicine Pulmonary Disease
DX: J44.9 Chronic obstructive pulmonary disease, unspecified (principal); M19.90 Unspecified osteoarthritis, unspecified site; E11.9 Type 2 diabetes mellitus without complications; M79.7 Fibromyalgia; K21.9 Gastro-esophageal reflux disease without esophagitis; I10 Essential (primary) hypertension; Z79.4 Long term (current) use of insulin; Z79.84 Long term (current) use of oral hypoglycemic drugs; Z79.82 Long term (current) use of aspirin; Z79.899 Other long term (current) drug therapy; Z87.891 Personal history of nicotine dependence

== ENCOUNTER → 2018-07-22 11:50 | Outpatient (CLI) | payer MEDICARE, OTHER, SELFPAY ==
[2018-07-16 11:14] VITALS: BMI 34.8
--- NOTE | 2018-07-22 12:08 | CT_ITS ---
STUDY: CTA CHEST REASON FOR EXAM: Female, 67 years old. Chest pain. Shortness of breath. RADIATION DOSAGE (If Supplied By Facility): CTDIvol = ( 14.88 ) mGy, DLP = ( 644.73 ) mGycm TECHNIQUE: The examination was performed with the intravenous administration of 100ML ml of Isovue 370 contrast material. Post-processing of the angiographic images was performed, with multiplanar reformation and 3D reconstruction. Individualized dose optimization techniques were used for this CT. COMPARISON: Comparison is made with prior CT scan of the chest dated June 24, 2018. FINDINGS: Small bilateral axillary lymph nodes. Normal enhancement of the main pulmonary artery and right and left pulmonary arteries. Normal enhancement of the bilateral peripheral pulmonary arteries. There is no demonstrated pulmonary embolism. There is atherosclerotic calcification of the aortic arch with tortuosity. There is no demonstrated aortic dissection. There are calcifications of the coronary arteries. Normal mediastinum. Normal hilar regions. Normal visualized trachea and bronchi. The lungs are well expanded. There is a 1.3 cm calcified granuloma in the right lower lobe. Stable linear scarring in the anterior aspect of the right middle lobe. Mild increased markings at the right lung base suggestive of scarring. Normal pleura. Normal chest wall structures. There are degenerative changes of thoracic spine. Calcified splenic granulomas. CT/CTA Chest W/WO Contrast IMPRESSION: No evidence of pulmonary embolism. Stable examination. Electronically Signed: Gm Fermin MD at 13:30 EST Tel [phone], Service support ,
[2018-07-22 12:40] LABS: Anion Gap 9 (5-15); BUN 14 mg/dL (7-18); BUN/Creat Ratio 18.1 RATIO (10-20); Calcium,Total 9.1 mg/dL (8.5-10.1); Chloride 102 mmol/L (98-107); Creatinine, Serum 0.78 mg/dL (0.55-1.02); EST Glomerular Filtration Rate 79 mL/min (>60); Est Glom Filt Rate - Afr Amer 96 mL/min (>60); Glucose 176 mg/dL (74-106); Potassium 4.5 mmol/L (3.5-5.1); Sodium Level 137 mmol/L (136-145)
[2018-07-22 12:40] LABS: CREATININE FINGERSTICK 0.9 mg/dL (0.55-1.02); EGFR FINGERSTICK > 60.0000 mL/min (>60)
[2018-07-22 12:57] LABS: D-Dimer Quantitative (DVT/PE) 0.81 FEU/ug/m (0.27-0.49)
== END ==
PROVIDERS: Family Provider Family Medicine Geriatric Medicine; PCP Family Medicine Geriatric Medicine; Referring Provider Family Medicine Geriatric Medicine; Visit Provider Family Medicine Geriatric Medicine
DX: R06.02 Shortness of breath (principal)
CPT/HCPCS: 36415; 71275; 80048; 85379; Q9967

== ENCOUNTER 2018-07-24 06:12 | Outpatient (RCR) | payer MEDICARE, OTHER, SELFPAY ==
[2018-07-16 11:14] VITALS: BMI 34.8
== END 2018-08-08 23:59 ==
LOC: PR 06:12
PROVIDERS: Family Provider Family Medicine Geriatric Medicine; PCP Family Medicine Geriatric Medicine; Referring Provider Internal Medicine Pulmonary Disease; Visit Provider Internal Medicine Pulmonary Disease
DX: J44.9 Chronic obstructive pulmonary disease, unspecified (principal)
CPT/HCPCS: 97150; G0424

== ENCOUNTER → 2018-08-27 14:38 | Outpatient (CLI) | payer MEDICARE, OTHER, SELFPAY ==
[2018-07-16 11:14] VITALS: BMI 34.8
[2018-08-27 15:58] LABS: Vitamin D,25 Hydroxy 71.3 ng/mL (29.95-100.01)
[2018-08-27 16:07] LABS: ALB/GLOB Ratio 0.7 RATIO (0.9-2.4); AST(SGOT) 89 U/L (15-37); Absolute Lymphocyte Count 2.16 X10^3/ul (0.83-4.51); Absolute Neutrophil Count 7.1 X10^3/uL (2.0-7.7); Alanine Aminotransfer ALT/SGPT 63 U/L (13-56); Albumin, Serum 3.4 g/dL (3.2-5.0); Alkaline Phosphatase 149 U/L (45-117); Anion Gap 9 (5-15); BUN 13 mg/dL (7-18); BUN/Creat Ratio 15.6 RATIO (10-20); Basophil# 0.07 X10^3/uL; Basophil% 0.7 % (0-1); Chloride 102 mmol/L (98-107); Cholesterol 157 mg/dL (200); Creatinine, Serum 0.83 mg/dL (0.55-1.02); EST Glomerular Filtration Rate 73 mL/min (>60); Eosinophil# 0.48 X10^3/uL; Eosinophils% 4.5 % (0-5); Est Glom Filt Rate - Afr Amer 88 mL/min (>60); Globulin 4.8 g/dL (2.2-4.2); Glucose 188 mg/dL (74-106); Hematocrit 41.4 % (37-47); Hemoglobin 12.3 g/dl (12.0-15.0); High Density Lipoprotein 34 mg/dL; Lymphocyte # 2.16 X10^3/ul (4.0); Lymphocyte % 20.3 % (19-41); Mean Corp Hgb Conc 29.7 g/gl (32-36); Mean Corpuscular Hgb 27.2 pg (27.0-32.0); Mean Corpuscular Volume 91.4 fL (81-99); Mean Platelet Vol. 11.7 fl (6.2-12.0); Monocyte# 0.79 X10^3/uL; Monocyte% 7.4 % (0-10); Neutrophil # 7.14 X10^3/uL (2.7-7.7); Neutrophil % 66.9 % (47-70); Platelet Count 328 K/mm3 (150-450); Potassium 4.6 mmol/L (3.5-5.1); Protein, Total 8.2 g/dL (6.4-8.2); RBC Distribution Width CV 15.6 % (11.6-14.6); RBC Distribution Width SD 51.7 fl (35.1-43.9); Red Blood Count 4.53 M/mm3 (4.2-5.4); Sodium Level 136 mmol/L (136-145); Thyroid Stim Hormone (TSH) 2.95 uIU/mL (0.358-3.74); Triglycerides 240 mg/dL; Very Low Density Lipoprotein 48 mg/dL (5-40); White Blood Count 10.7 K/mm3 (4.4-11.0)
[2018-08-27 16:11] LABS: POSITIVE COUNT NO; POSITIVE DIFFERENTIAL NO; POSITIVE MORPHOLOGY NO
== END ==
PROVIDERS: Family Provider Family Medicine Geriatric Medicine; PCP Family Medicine Geriatric Medicine; Visit Provider Family Medicine Geriatric Medicine
DX: E11.9 Type 2 diabetes mellitus without complications (principal); E55.9 Vitamin D deficiency, unspecified; E78.49 Other hyperlipidemia; I10 Essential (primary) hypertension
CPT/HCPCS: 36415; 80053; 80061; 82306; 84443; 85025

== ENCOUNTER 2018-08-28 06:28 | Outpatient (RCR) | payer MEDICARE, OTHER, SELFPAY ==
[2018-07-16 11:14] VITALS: BMI 34.8
== END 2018-09-05 23:59 ==
LOC: PR 06:28
PROVIDERS: Family Provider Family Medicine Geriatric Medicine; PCP Family Medicine Geriatric Medicine; Referring Provider Internal Medicine Pulmonary Disease; Visit Provider Internal Medicine Pulmonary Disease
DX: J44.9 Chronic obstructive pulmonary disease, unspecified (principal)
CPT/HCPCS: 97150; G0424

== ENCOUNTER 2018-09-06 11:29 | Outpatient (RCR) | payer MEDICARE, OTHER, SELFPAY ==
[2018-07-16 11:14] VITALS: BMI 34.8
== END 2018-10-06 23:59 ==
LOC: PR 11:29
PROVIDERS: Family Provider Family Medicine Geriatric Medicine; PCP Family Medicine Geriatric Medicine; Referring Provider Internal Medicine Pulmonary Disease; Visit Provider Internal Medicine Pulmonary Disease
DX: J44.9 Chronic obstructive pulmonary disease, unspecified (principal)

== ENCOUNTER → 2018-11-28 | Outpatient (CLI) | payer MEDICARE, OTHER, SELFPAY ==
[2018-07-16 11:14] VITALS: BMI 34.8
[2018-11-28 17:38] LABS: Absolute Lymphocyte Count 3.72 X10^3/ul (0.83-4.51); Absolute Neutrophil Count 8.5 X10^3/uL (2.0-7.7); Basophil# 0.07 X10^3/uL; Basophil% 0.5 % (0-1); Eosinophil# 0.61 X10^3/uL; Eosinophils% 4.4 % (0-5); Hematocrit 40.7 % (37-47); Hemoglobin 12.3 g/dl (12.0-15.0); Lymphocyte # 3.72 X10^3/ul (4.0); Lymphocyte % 26.9 % (19-41); Mean Corp Hgb Conc 30.2 g/gl (32-36); Mean Corpuscular Hgb 25.4 pg (27.0-32.0); Mean Corpuscular Volume 83.9 fL (81-99); Mean Platelet Vol. 11.6 fl (6.2-12.0); Monocyte# 0.92 X10^3/uL; Monocyte% 6.7 % (0-10); Neutrophil # 8.46 X10^3/uL (2.7-7.7); Neutrophil % 61.2 % (47-70); Platelet Count 333 K/mm3 (150-450); RBC Distribution Width CV 16.1 % (11.6-14.6); RBC Distribution Width SD 49.1 fl (35.1-43.9); Red Blood Count 4.85 M/mm3 (4.2-5.4); White Blood Count 13.8 K/mm3 (4.4-11.0)
[2018-11-28 17:49] LABS: POSITIVE COUNT NO; POSITIVE DIFFERENTIAL NO; POSITIVE MORPHOLOGY NO
[2018-11-28 17:53] LABS: ALB/GLOB Ratio 0.8 RATIO (0.9-2.4); AST(SGOT) 73 U/L (15-37); Alanine Aminotransfer ALT/SGPT 61 U/L (13-56); Albumin, Serum 3.6 g/dL (3.2-5.0); Alkaline Phosphatase 117 U/L (45-117); Anion Gap 9 (5-15); BUN 14 mg/dL (7-18); BUN/Creat Ratio 17.2 RATIO (10-20); Calcium,Total 9.2 mg/dL (8.5-10.1); Chloride 103 mmol/L (98-107); Creatinine, Serum 0.81 mg/dL (0.55-1.02); EST Glomerular Filtration Rate 75 mL/min (>60); Est Glom Filt Rate - Afr Amer 91 mL/min (>60); Globulin 4.8 g/dL (2.2-4.2); Glucose 52 mg/dL (74-106); Potassium 4.8 mmol/L (3.5-5.1); Protein, Total 8.4 g/dL (6.4-8.2); Sodium Level 139 mmol/L (136-145)
[2018-11-28 17:55] LABS: Vitamin D,25 Hydroxy 62.5 ng/mL (29.95-100.01)
== END | disposition home or self-care (01) ==
LOC: POLAB3 14:18
PROVIDERS: Family Provider Family Medicine Geriatric Medicine; PCP Family Medicine Geriatric Medicine; Visit Provider Family Medicine Geriatric Medicine
DX: E11.9 Type 2 diabetes mellitus without complications (principal); E55.9 Vitamin D deficiency, unspecified; I10 Essential (primary) hypertension
CPT/HCPCS: 80053; 82306; 84443; 85025

== ENCOUNTER → 2019-05-27 14:25 | Outpatient (CLI) | payer MEDICARE, OTHER, SELFPAY ==
[2018-07-16 11:14] VITALS: BMI 34.8
[2019-05-27 16:32] LABS: Absolute Lymphocyte Count 3.22 X10^3/uL (0.83-4.51); Absolute Neutrophil Count 9.1 X10^3/uL (2.0-7.7); Basophil# 0.13 X10^3/uL; Basophil% 0.9 % (0-1); Eosinophil# 1.02 X10^3/uL; Eosinophils% 7.2 % (0-5); Hematocrit 44.3 % (37-47); Hemoglobin 13.4 g/dL (12.0-15.0); Lymphocyte # 3.22 X10^3/ul (4.0); Lymphocyte % 22.6 % (19-41); Mean Corp Hgb Conc 30.2 g/dL (32-36); Mean Corpuscular Hgb 27.3 pg (27.0-32.0); Mean Corpuscular Volume 90.2 fL (81-99); Mean Platelet Vol. 11.3 fl (6.2-12.0); Monocyte# 0.76 X10^3/uL; Monocyte% 5.3 % (0-10); NRBC Flagged by Analyzer 0 % (0-5); Neutrophil # 9.05 X10^3/uL (2.7-7.7); Neutrophil % 63.6 % (47-70); Platelet Count 333 K/mm3 (150-450); RBC Distribution Width CV 15.3 % (11.6-14.6); RBC Distribution Width SD 50.6 fl (35.1-43.9); Red Blood Count 4.91 M/mm3 (4.2-5.4); White Blood Count 14.2 K/mm3 (4.4-11.0)
[2019-05-27 16:41] LABS: Vitamin D,25 Hydroxy 48.7 ng/mL (29.95-100.01)
[2019-05-27 16:44] LABS: ALB/GLOB Ratio 0.7 RATIO (0.9-2.4); AST(SGOT) 34 U/L (15-37); Alanine Aminotransfer ALT/SGPT 25 U/L (13-56); Albumin, Serum 3.5 g/dL (3.2-5.0); Alkaline Phosphatase 123 U/L (45-117); Anion Gap 8 (5-15); BUN 12 mg/dL (7-18); Calcium,Total 9.5 mg/dL (8.5-10.1); Chloride 105 mmol/L (98-107); Creatinine, Serum 0.75 mg/dL (0.55-1.02); EST Glomerular Filtration Rate 82 mL/min (>60); Est Glom Filt Rate - Afr Amer 100 mL/min (>60); Globulin 4.7 g/dL (2.2-4.2); Glucose 100 mg/dL (74-106); Potassium 4.5 mmol/L (3.5-5.1); Protein, Total 8.2 g/dL (6.4-8.2); Sodium Level 139 mmol/L (136-145); Thyroid Stim Hormone (TSH) 1.72 uIU/mL (0.358-3.74)
== END ==
PROVIDERS: Family Provider Family Medicine Geriatric Medicine; PCP Family Medicine Geriatric Medicine; Visit Provider Family Medicine Geriatric Medicine
DX: E11.9 Type 2 diabetes mellitus without complications (principal); E55.9 Vitamin D deficiency, unspecified; I10 Essential (primary) hypertension
CPT/HCPCS: 36415; 80053; 82306; 84443; 85025

== ENCOUNTER → 2019-07-07 18:51 | Outpatient (CLI) | payer MEDICARE, OTHER, SELFPAY ==
[2018-07-16 11:14] VITALS: BMI 34.8
--- NOTE | 2019-07-07 18:50 | CT_ITS ---
STUDY: LOW DOSE CT LUNG CANCER SCREENING REASON FOR EXAM: Female, 68 years old. 52 YEAR 1/2PPD SMOKER RADIATION DOSAGE (If Supplied By Facility): CTDIvol = ( 3.02 ) mGy, DLP = ( 111.74 ) mGycm TECHNIQUE: No contrast was administered. Low dose technique was utilized (average mAS-38 and kVp 120). 1.25 mm axial source images with a slice interval of 1.25-mm were reconstructed in lung windows. 2.5 mm axial source images with a slice interval of 2.5-mm were reconstructed in lung windows. 5.0 mm axial source images with a slice interval of 5.0-mm were reconstructed in soft tissue windows. Nodule measured using lung windows on PACS and/or independent workstation with automated measurement of minimum and maximum diameter. Nodule measurement reported as average diameter rounded to the nearest whole number. Growth is defined as an increase ins size of greater than 1.5 mm. COMPARISON: CTA chest 07/22/2018 NODULES: No noncalcified pulmonary nodules. There is a calcified granuloma in the right lower lobe. Mild fibrotic changes in the lower lungs. Emphysema: None significant Endobronchial lesion: None Aorta: Atherosclerosis with tortuosity. Coronary arteries: Moderate atherosclerosis. Heart: Normal size. Mitral valve calcifications are present. Pulmonary artery: Unremarkable for unopacified technique. Mediastinal nodes: There are calcified mediastinal and right hilar lymph nodes. Other chest and abdominal findings: There are calcified granulomata of the spleen. Neurostimulator device extends to the lower thoracic spine. There are degenerative changes of the thoracic spine. CT/Low Dose CT Lung Screening IMPRESSION: Lung-RADS category 1 - Continue annual screening with LDCT in 12 months. IMPORTANT NOTES FOR USE: ACR Lung-RADS Version 1.0 Assessment Categories Release Date: November 03, 2013 Category: Coded 0-4 bases on nodule(s) with highest degree of suspicion. Negative screen is defined as categories 1 and 2; a positive screen is defined as categories 3 and 4. Category 3 and 4A nodules that are unchanged on interval CT should be coded as category 2, and individuals returned to screening in 12 months. Category 4X: Category 3 or 4 nodules with additional imaging findings that increase the suspicion of lung cancer, such as spiculation, GGN that doubles in size in 1 year, enlarged lymph notes, etc. Category Modifiers: S (significant finding unrelated to lung cancer) and C (prior history of treated lung cancer) may be added to the 0-4 Lung-RADS Electronically Signed: Tyler Sheldon MD ([place]) at 14:43 EST , Service support ,
== END ==
PROVIDERS: Family Provider Family Medicine Geriatric Medicine; PCP Family Medicine Geriatric Medicine; Referring Provider Internal Medicine Pulmonary Disease; Visit Provider Internal Medicine Pulmonary Disease
DX: Z87.891 Personal history of nicotine dependence (principal)
CPT/HCPCS: G0297

== ENCOUNTER → 2019-08-25 10:56 | Outpatient (CLI) | payer MEDICARE, OTHER, SELFPAY ==
[2018-07-16 11:14] VITALS: BMI 34.8
[2019-08-25 12:37] LABS: Absolute Lymphocyte Count 2.75 X10^3/uL (0.83-4.51); Absolute Neutrophil Count 8.7 X10^3/uL (2.0-7.7); Basophil# 0.09 X10^3/uL; Basophil% 0.7 % (0-1); Eosinophil# 0.62 X10^3/uL; Eosinophils% 4.8 % (0-5); Hematocrit 41.7 % (37-47); Hemoglobin 12.6 g/dL (12.0-15.0); Lymphocyte # 2.75 X10^3/ul (4.0); Lymphocyte % 21.3 % (19-41); Mean Corp Hgb Conc 30.2 g/dL (32-36); Mean Corpuscular Hgb 26.2 pg (27.0-32.0); Mean Corpuscular Volume 86.7 fL (81-99); Mean Platelet Vol. 11.4 fl (6.2-12.0); Monocyte# 0.64 X10^3/uL; NRBC Flagged by Analyzer 0 % (0-5); Neutrophil # 8.72 X10^3/uL (2.7-7.7); Neutrophil % 67.7 % (47-70); Platelet Count 311 K/mm3 (150-450); RBC Distribution Width CV 15.5 % (11.6-14.6); RBC Distribution Width SD 49.7 fl (35.1-43.9); Red Blood Count 4.81 M/mm3 (4.2-5.4); White Blood Count 12.9 K/mm3 (4.4-11.0)
[2019-08-25 13:10] LABS: ALB/GLOB Ratio 0.7 RATIO (0.9-2.4); AST(SGOT) 26 U/L (15-37); Alanine Aminotransfer ALT/SGPT 22 U/L (13-56); Albumin, Serum 3.4 g/dL (3.2-5.0); Alkaline Phosphatase 120 U/L (45-117); Anion Gap 5 (5-15); BUN 19 mg/dL (7-18); BUN/Creat Ratio 21.5 RATIO (10-20); Calcium,Total 9.6 mg/dL (8.5-10.1); Chloride 103 mmol/L (98-107); Creatinine, Serum 0.88 mg/dL (0.55-1.02); EST Glomerular Filtration Rate 68 mL/min (>60); Est Glom Filt Rate - Afr Amer 82 mL/min (>60); Globulin 4.7 g/dL (2.2-4.2); Glucose 148 mg/dL (74-106); Potassium 4.8 mmol/L (3.5-5.1); Protein, Total 8.1 g/dL (6.4-8.2); Sodium Level 136 mmol/L (136-145); Thyroid Stim Hormone (TSH) 1.77 uIU/mL (0.358-3.74)
[2019-08-25 14:20] LABS: Vitamin D,25 Hydroxy 40.6 ng/mL (29.95-100.01)
== END ==
PROVIDERS: PCP Family Medicine Geriatric Medicine; Visit Provider Family Medicine Geriatric Medicine
DX: E11.9 Type 2 diabetes mellitus without complications (principal); I10 Essential (primary) hypertension; E55.9 Vitamin D deficiency, unspecified
CPT/HCPCS: 36415; 80053; 82306; 84443; 85025

== ENCOUNTER → 2019-12-03 11:37 | Outpatient (CLI) | payer MEDICARE, SELFPAY ==
[2018-07-16 11:14] VITALS: BMI 34.8
[2019-12-03 12:46] LABS: Absolute Lymphocyte Count 3.36 X10^3/uL (0.83-4.51); Absolute Neutrophil Count 9.3 X10^3/uL (2.0-7.7); Basophil# 0.12 X10^3/uL; Basophil% 0.8 % (0-1); Eosinophil# 0.77 X10^3/uL; Eosinophils% 5.4 % (0-5); Hematocrit 39.4 % (37-47); Hemoglobin 11.9 g/dL (12.0-15.0); Lymphocyte # 3.36 X10^3/ul (4.0); Lymphocyte % 23.4 % (19-41); Mean Corp Hgb Conc 30.2 g/dL (32-36); Mean Corpuscular Volume 86.2 fL (81-99); Mean Platelet Vol. 11.1 fl (6.2-12.0); Monocyte# 0.72 X10^3/uL; NRBC Flagged by Analyzer 0 % (0-5); Platelet Count 365 K/mm3 (150-450); RBC Distribution Width CV 16.6 % (11.6-14.6); RBC Distribution Width SD 51.8 fl (35.1-43.9); Red Blood Count 4.57 M/mm3 (4.2-5.4); White Blood Count 14.3 K/mm3 (4.4-11.0)
[2019-12-03 13:18] LABS: Vitamin D,25 Hydroxy 38.4 ng/mL
[2019-12-03 13:35] LABS: ALB/GLOB Ratio 0.8 RATIO (0.9-2.4); AST(SGOT) 28 U/L (15-37); Alanine Aminotransfer ALT/SGPT 23 U/L (13-56); Albumin, Serum 3.6 g/dL (3.2-5.0); Alkaline Phosphatase 128 U/L (45-117); Anion Gap 10 (5-15); BUN 20 mg/dL (7-18); BUN/Creat Ratio 26.4 RATIO (10-20); Calcium,Total 9.8 mg/dL (8.5-10.1); Chloride 102 mmol/L (98-107); Creatinine, Serum 0.76 mg/dL (0.55-1.02); EST Glomerular Filtration Rate 81 mL/min (>60); Est Glom Filt Rate - Afr Amer 98 mL/min (>60); Globulin 4.6 g/dL (2.2-4.2); Glucose 127 mg/dL (74-106); Potassium 4.6 mmol/L (3.5-5.1); Protein, Total 8.2 g/dL (6.4-8.2); Sodium Level 136 mmol/L (136-145); Thyroid Stim Hormone (TSH) 2.13 uIU/mL (0.358-3.74)
== END ==
PROVIDERS: PCP Family Medicine Geriatric Medicine; Visit Provider Family Medicine Geriatric Medicine
DX: E11.9 Type 2 diabetes mellitus without complications (principal); I10 Essential (primary) hypertension; E55.9 Vitamin D deficiency, unspecified
CPT/HCPCS: 36415; 80053; 82306; 84443; 85025

== ENCOUNTER → 2020-04-23 11:42 | Outpatient (CLI) | payer MEDICARE, SELFPAY ==
[2018-07-16 11:14] VITALS: BMI 34.8
[2020-04-23 11:24] LABS: Basophil# 0.11 X10^3/uL; Basophil% 0.8 % (0-1); Eosinophil# 0.38 X10^3/uL; Eosinophils% 2.9 % (0-5); Hematocrit 22.1 % (37-47); Lymphocyte % 21.4 % (19-41); Mean Corp Hgb Conc 27.1 g/dL (32-36); Mean Corpuscular Hgb 19.4 pg (27.0-32.0); Mean Corpuscular Volume 71.3 fL (81-99); Mean Platelet Vol. 8.9 fl (6.2-12.0); Monocyte# 0.74 X10^3/uL; Monocyte% 5.6 % (0-10); NRBC Flagged by Analyzer 0.2 % (0-5); Neutrophil % 68.7 % (47-70); Platelet Count 433 K/mm3 (150-450); RBC Distribution Width CV 16.9 % (11.6-14.6); RBC Distribution Width SD 42.7 fl (35.1-43.9); White Blood Count 13.1 K/mm3 (4.4-11.0)
--- NOTE | 2020-04-23 11:25 | RAD_ITS ---
STUDY: X-RAY - ABDOMEN/PELVIS REASON FOR EXAM: Female, 69 years old. abd pain, general illness TECHNIQUE: Frontal views of the abdomen COMPARISON: No prior comparisons. FINDINGS: There is no intestinal obstruction. There are degenerative changes and scoliosis in the lumbar spine. Termination device is present in the left lower gluteal region with leads descending into the thoracic spinal cord. There are calcified right hilar lymph nodes and likely right lower lobe granuloma. There is no gas under the diaphragms. Lung bases are clear. Cardiac shadow is normal. RAD/Abd Inc Decub and/or Erect IMPRESSION: No intestinal obstruction. Otherwise unremarkable abdominal radiograph. Electronically Signed: Marlyn Odonnell, at 16:06 EDT Tel , Service support ,
[2020-04-23 11:41] LABS: Anion Gap 9 (5-15); BUN 19 mg/dL (7-18); BUN/Creat Ratio 23.5 RATIO (10-20); CPK Total, Creatine Kinase 63 U/L (26-192); Calcium,Total 9.3 mg/dL (8.5-10.1); Chloride 100 mmol/L (98-107); Creatinine, Serum 0.81 mg/dL (0.55-1.02); EST Glomerular Filtration Rate 75 mL/min (>60); Est Glom Filt Rate - Afr Amer 91 mL/min (>60); Glucose 121 mg/dL (74-106); Potassium 4.2 mmol/L (3.5-5.1); Sodium Level 136 mmol/L (136-145)
[2020-04-23 11:49] LABS: Differential Indicated SCAN CRITERIA MET
[2020-04-23 11:56] LABS: Platelet Estimate ADEQUATE (ADEQ)
[2020-04-23 11:57] LABS: Anisocytosis RARE; Hypochromasia 3+; Microcytosis 2+; Polychromasia RARE
[2020-04-24 10:17] LABS: Myoglobin, Serum 35 ng/mL (25-58)
[2020-04-26 14:20] LABS: Pathologist Review Reviewed
== END ==
PROVIDERS: PCP Family Medicine Geriatric Medicine; Referring Provider Family Medicine Geriatric Medicine; Visit Provider Family Medicine Geriatric Medicine
DX: R10.9 Unspecified abdominal pain (principal); I10 Essential (primary) hypertension; R06.89 Other abnormalities of breathing; E86.0 Dehydration
CPT/HCPCS: 36415; 74019; 80048; 82550; 83874; 84484; 85025

== ENCOUNTER 2020-04-23 12:01 | Inpatient (IN) | payer MEDICARE, SELFPAY ==
[2018-07-16 11:14] VITALS: BMI 34.8
[2020-04-23] VITALS (17 sets, daily range): BP systolic 99–138; BP diastolic 45–78; PULSE 75–108; RESP 16–20; TEMP 36.2–36.9; O2SAT 93–99; BMI 27.6; BMI 28.1; BMI 28.2
--- NOTE | 2020-04-23 12:36 | ED.VIS.GEN ---
History of Present Illness Informant: Patient Onset: Weeks Narrative: 69-year-old female with past medical history of hypertension, hyperlipidemia, type 2 diabetes, COPD, GERD presents with complaints of abnormal lab values. She states she has been fatigued for the last several weeks and feels dizzy with positional changes. No syncope. She states she has chronic shortness of breath from COPD which is no worse than usual. Denies chest pain or palpitations. PCP did outpatient labs this morning which showed a hemoglobin of 6. She states she has a very remote history of anemia but has not required blood transfusions in the past. She does admit to intermittent black stools but attributes this to drinking prune juice. Takes aspirin 81 mg, no blood thinners. Denies fevers, chills, chest pain, nausea, vomiting, cough, abdominal pain, or hematochezia. <Ute Loera - Last Filed: 04/23/20 17:44> <Andrae Phillip - Last Filed: 04/24/20 17:45> Chief Complaint: Fatigue Past Medical History Past Medical History: - - hypertension, hyperlipidemia, type 2 diabetes, COPD, GERD Smoking Status: Former smoker - Family History Maternal Family History: Reports: No pertinent history Paternal Family History: Reports: No pertinent history <Ute Loera - Last Filed: 04/23/20 17:44> <Andrae Phillip - Last Filed: 04/24/20 17:45> - Allergies and Home Meds Allergies/Adverse Reactions: Allergies hydroxyzine HCl [From Vistaril] Allergy (Verified 04/23/20 12:02) Hives hydroxyzine pamoate [From Vistaril] Allergy (Verified 04/23/20 12:02) Hives Penicillins [PCN] Allergy (Verified 04/23/20 12:02) Hives Sulfa (Sulfonamide Antibiotics) Allergy (Verified 04/23/20 12:02) Hives Review of Systems General: Denies: Chills, Fever, Sweats Eyes: Denies: Visual changes - bilaterally, Diplopia ENT: Denies: Rhinorrhea, Sore throat Cardiovascular: Denies: Chest pain, Palpitations Respiratory: Reports: Dyspnea on exertion Gastrointestinal: Reports: Melena. Denies: Abdominal pain, Nausea, Vomiting, Diarrhea, Hematochezia Musculoskeletal: Denies: Back pain, Extremity Pain Skin: Denies: Rash, Wounds Neurological: Reports: Weakness <Ute Loera - Last Filed: 04/23/20 17:44> Physical Exam Vital Signs/Narrative: Vital Signs Temp Pulse Resp BP Pulse Ox 04/23/20 12:14 102 H 20 H 120/59 L 98 04/23/20 12:02 97.3 F L 99 17 121/53 H 99 General: Well nourished, Well developed, No Acute Distress Head: Normocephalic, Atraumatic Eyes: Perrl, EOMI ENT: Moist mucous membranes, No rhinorrhea Neck: Supple, Nontender Cardiovascular: Regular rate, Regular rhythm, No murmurs Respiratory: No distress, CTA bilaterally, Chest nontender Abdomen: Soft, Nontender, Nondistended, Normal bowel sounds, - - Reducible ventral hernia?chronic per patient Rectal: Nontender Back: Nontender, Normal Inspection Extremities: Nontender, No edema Skin: Normal color, No rash Neurological: Alert, Oriented x3, Cranial nerves II-XII grossly intact Psychological: Normal affect, Normal Mood <Ute Loera - Last Filed: 04/23/20 17:44> Diagnostic/Tx/Re-eval Laboratory Data 04/23/20 04/23/20 12:30 12:50 PT 12.9 INR 1.0 Blood Type O POSITIVE Antibody Screen NEGATIVE Crossmatch See Detail - Medical Decision Making Patient presented with lab values of low hemoglobin. She appears well nontoxic. Vital signs show tachycardia in the 100s, otherwise normal. Blood pressure is stable. Labs reviewed from this morning show hemoglobin of 6 which is a significant decrease from 11 in November 2019. Coags within normal limits Hemoccult was negative but no stool in the rectum. She states she is overdue for colonoscopy and with her reported history of melena my concern is for GI bleed. She has no other source of bleeding. She is on aspirin only. Case was discussed with hospitalist and GI who are agreeable to do a scope as long as she is COVID negative. COVID test pending. She was given 2 units of blood here and was transferred to the floor in stable condition. <Ute Loera - Last Filed: 04/23/20 17:44> - Medical Decision Making I supervised the PA and have performed my own pertinent history and physical. Results and treatment plan were discussed. HPI: Patient reports that she had outpatient blood work that showed a Hb of 6. She denies any known source of blood loss. No nosebleeds or trauma. Black formed stool that she believes due to prunes. No blood in stool or melena. She had a colonoscopy [address] Mariscal. PE: Vitals: Stable. Afebrile. General: Well-nourished and well-developed. Head: Normocephalic atraumatic. Cardiovascular: Regular rate and rhythm. No murmurs. Respiratory: No respiratory distress. Clear to auscultation bilaterally. Abdominal: Soft, nontender, nondistended, normal bowel sounds. No guarding, rebound, or peritoneal signs. Back: Nontender. Extremities: Nontender, no edema. Skin: Normal color, no rash. Neurologic: Alert and oriented ?3. Cranial nerves II through XII are intact. Normal strength and sensation. Psych: Normal affect. Emergency Department course: Hemoccult was niegative. Coags normal. not on anticoagulants. Typed and matched for 2 units pRBC. Treatment Plan: Patient was discussed with Dr. Booth and Dr. Ruiz. She will be admitted for further evaluaiton and treatment. <Andrae Phillip - Last Filed: 04/24/20 17:45> ED Disposition <Ute Loera - Last Filed: 04/23/20 17:44> <Andrae Phillip - Last Filed: 04/24/20 17:45> - Plan for ED Patient: Disposition: Acute Care Hospital [facility]
[2020-04-23 13:09] LABS: Prothrombin Time (Protime)PT. 12.9 SECONDS (11.7-14.9)
--- NOTE | 2020-04-23 13:53 | EKG12_ITS ---
Test Reason : Blood Pressure : / mmHG Vent. Rate : 106 BPM Atrial Rate : 106 BPM P-R Int : 162 ms QRS Dur : 090 ms QT Int : 356 ms P-R-T Axes : 069 096 061 degrees QTc Int : 472 ms Sinus tachycardia Otherwise normal ECG Confirmed by APARNA HAYES, ISHMAEL ([id number]), editor house organ JOSIAS MAHARAJ ([id number]) on 04/27/2020 8:26:17 AM Referred By: Confirmed By:ISHMAEL BRAUN MD
--- NOTE | 2020-04-23 14:00 | PCM.HP.STD ---
Problem List (1) Type 2 diabetes mellitus Status: Chronic (2) Acute microcytic anemia Status: Acute (3) GERD (gastroesophageal reflux disease) Status: Chronic (4) Hyperlipidemia Status: Chronic (5) COPD (chronic obstructive pulmonary disease) Status: Chronic (6) Hypertension Status: Chronic (7) Hypothyroidism Status: Chronic (8) Fibromyalgia Status: Chronic History of Present Illness Date of Admission: 04/23/20 Chief Complaint: Weakness, fatigue. The patient is a 69 year old F with past medical history as mentioned above presented to the emergency room because of fatigue and weakness. Her symptoms started around 1 month ago with generalized weakness, associated with fatigue, palpitation as well as shortness of breath. She complains of slowly progressive shortness of breath, initially was at moderate activity and has been getting worse over the last couple of weeks, associated with palpitation, dizziness and lightheadedness and without aggravating or relieving factors. She denied chest pain, syncope or presyncope. She denied significant abdominal pain, nausea or vomiting. She reported intermittent black stools. She denied epistaxis, hemoptysis, hematemesis, hematochezia or vaginal bleeding. She reported easy bruisability. She denied taking significant amount of mssk-dxf-voyppel NSAIDs. She does have history of GERD and she has been on PPI. In the emergency department, she was afebrile, slightly tachycardic, other vital signs were stable. Routine blood work was remarkable for mild leukocytosis, hemoglobin of 6 g/dL, MCV of 71, other routine blood work was unremarkable. Pro time and INR were normal. Troponin was negative. EKG is pending. She is being admitted for acute symptomatic microcytic anemia likely due to blood loss for evaluation and treatment. Past Medical History Past Medical History (Chronic Problems): Chronic Problems (Last Updated 07/16/18 @ 10:16 by Sadie Lopez, DAVID) Type 2 diabetes mellitus (Chronic) GERD (gastroesophageal reflux disease) (Chronic) Hyperlipidemia (Chronic) COPD (chronic obstructive pulmonary disease) (Chronic) Hypertension (Chronic) Hypothyroidism (Chronic) Fibromyalgia (Chronic) Medical History: Medical History (Last Updated 07/16/18 @ 10:16 by Sadie Lopez, DAVID) Arthritis M19.90 Cervical pain (neck) M54.2 Diabetes mellitus E11.9 Fibromyalgia M79.7 GERD (gastroesophageal reflux disease) K21.9 Osteoarthritis M19.90 Vascular disease I99.9 COPD (chronic obstructive pulmonary disease) J44.9 Hypertension I10 Allergies hydroxyzine HCl [From Vistaril] Allergy (Verified 04/23/20 12:02) Hives hydroxyzine pamoate [From Vistaril] Allergy (Verified 04/23/20 12:02) Hives Penicillins [PCN] Allergy (Verified 04/23/20 12:02) Hives Sulfa (Sulfonamide Antibiotics) Allergy (Verified 04/23/20 12:02) Hives Home Medications: Ambulatory Orders Medication Instructions Recorded Atorvastatin Calcium [Lipitor] 80 mg PO QHS 11/16/14 Doxepin HCl [Sinequan] 30 mg PO QHS 11/16/14 Fluticasone/Salmeterol [Advair 1 puff INHALATION BID 11/16/14 100/50 Diskus] Hydrochlorothiazide [Hctz] 25 mg PO BID 11/16/14 Lansoprazole [Prevacid] 30 mg PO DAILY 11/16/14 Lisinopril [Zestril] 5 mg PO DAILY 11/16/14 Tiotropium [place] [Spiriva 18 MCG] 1 puff INHALATION QHS 11/16/14 cycloBENZAPRine HCl [Flexeril] 20 mg PO BREAKFAST 11/16/14 DiphenhydrAMINE [Benadryl] 50 mg PO BID 11/17/14 Aspirin E.C. [Ecotrin] 81 mg PO DAILY@199904/23/20 Diltiazem HCl [Diltiazem 24Hr ER 180 tab PO BID 04/23/20 (Cd)] Docusate Sodium 300 mg PO QHS 04/23/20 Levothyroxine Sodium 75 mcg PO DAILY 04/23/20 Metformin HCl 1,000 mg PO BIDCM 04/23/20 Multivitamin with Minerals 1 tab PO DAILY 04/23/20 [Multiple Vitamin] cycloBENZAPRine HCl [Flexeril] 10 mg PO QHS 04/23/20 Surgical History: Surgical History (Last Updated 07/16/18 @ 10:17 by Sadie Lopez, NON GARMENT SEWING MACHINE OPERATOR) H/O hernia repair Z98.890, Z87.19 Previous back surgery Z98.890 S/P insertion of spinal cord stimulator Z98.890 Surgical History: herniorrhaphy Psychiatric History: No pertinent psych hx INTERVENTION ANALYST History: No pertinent INTERVENTION ANALYST history Lives: Spouse/ Significant Other Smoking Status: Former smoker Alcohol: Rare Drugs: None - *Family History Maternal History Items: No pertinent history Paternal History Items: No pertinent history Review of Systems Constitutional: Reports: Weakness, Fatigue. Denies: Anorexia, Chills, Fever Eyes: Denies: Blurred vision, Double vision, Drainage, Redness HEENT: Denies: Dysphasia, Ear Pain, Eye Pain, Nasal Congestion, Sore Throat Cardiovascular: Reports: Light Headedness, Palpitations. Denies: Chest Pain, Chest Pressure, Edema, Heaviness, Paroxysmal Noc. Dyspnea, Syncope Respiratory: Reports: Shortness of Breath, Shortness of breath upon exertion. Denies: Cough, Pleuritic Pain, Sputum production, Wheezing Gastrointestinal: Reports: Melena. Denies: Abdominal Pain, Constipation, Diarrhea, Hematochezia, Nausea Genitourinary: Denies: Dysuria, Frequency, Hematuria Musculoskeletal: Denies: Arm Pain, Back Pain, Foot Pain Skin: Denies: Dryness, Rash Neurological: Denies: Balance problems, Double vision, Change in Speech, Slurred speech, Confusion, Headaches, Incoordination, Numbness, Tingling Psychiatric: Denies: Anxiety, Depression Endocrine: Denies: Change in Body Habitus, Polydipsia, Polyuria VTE Information - Inpt Only VTE Present on Admission: No VTE Mechan Device Prophylaxis: SCD's VTE Pharm Prophylaxis ordered?: No Patient Problems: Active and Suspected Problems (Last Updated 07/16/18 @ 10:16 by Sadie Lopez, NON GARMENT SEWING MACHINE OPERATOR) Acute microcytic anemia (Acute) - Physical Exam Vitals/I&O's: Vital Signs Temp Pulse Resp BP Pulse Ox 97.3 F L 102 H 20 H 120/59 L 98 04/23/20 12:02 04/23/20 12:14 04/23/20 12:14 04/23/20 12:14 04/23/20 12:14 Oxygen Delivery Method Room Air Weight: 174 lb Body Mass Index (BMI) 27.6 Finger Stick Blood Glucose 156 General: Alert, Oriented x3, Cooperative, No apparent distress HEENT: Atraumatic, PERRLA, EOMI, Normocephalic Oral: Moist Mucosa, No Gingival or Mucosal Lesions/ Ulcerations Neck: Supple, No JVD, Negative Carotid Bruits, Trachea Midline, Thyroid Normal Size and Texture Lungs: No rhonchi, No wheeze, No rales, Diminished, Rales, - - Decreased breath sounds at the bases, faint bilateral basilar crackles. Cardiovascular: Regular rate, Regular Rhythm, Normal S1, Normal S2, PMI Normal, Tachycardic Abdomen: Bowel Sounds Present, Soft, Non Tender, Non-Distended, No Hepato-splenomegaly, Obese Extremities: No clubbing, No cyanosis, No edema Skin: No rashes, No breakdown Lymphatic: No Cervical, Supraclavicular, or Inguinal Adenopathy Neurological: Cranial nerves II-XII grossly intact, Motor Exam 5/5 strength throughout Psych/Mental Status: Normal Affect, Appropriate, Alert and oriented to time, place, person, mood and affect Microbiology Past 72 Hours 04/23/20 12:30 Stool Stool Occult Blood (MAGAN) - Final Laboratory Results 04/23/20 12:30: Blood Type Pending, Antibody Screen Pending, Crossmatch See Detail 04/23/20 12:50: PT 12.9, INR 1.0 CBC: WBC is 13.1, hemoglobin of 6, MCV is 71.3. Platelet count is 433,000. PT 12.9, INR is 1. BMP: Sodium 136, potassium 4.2, BUN is 19, creatinine 0.81, chloride 100, serum bicarb is 27, blood glucose 121. Troponin is less than 0.015. Assessment/Plan All Active Problems (Last Updated 07/16/18 @ 10:16 by Sadie Lopez, NON GARMENT SEWING MACHINE OPERATOR) Acute microcytic anemia (Acute) This is a 69 years old female patient presented to the emergency room because of fatigue, weakness, palpitation, shortness of breath and she was found to have hemoglobin of 6 g/dL and she is being admitted for acute symptomatic microcytic anemia probably due to blood loss. #1 acute symptomatic microcytic anemia: Likely due to blood loss probably GI source. It is microcytic anemia, iron deficiency anemia. Apart from mild tachycardia, other vital signs are stable. Patient denied use of [id number] NSAIDs. She does have GERD and she has been on PPI. Pro time, INR and platelets count are normal. Plan: Admit to PCU, cardiac monitoring, clear liquids, gentle IV fluids for hydration, transfused unit of packed RBCs, repeat H&H after blood transfusion, start IV Protonix drip, preprocedure COVID-19 PCR, EKG, chest x-ray, general surgery consult for upper EGD and colonoscopy, repeat CBC and BMP tomorrow morning, PT OT evaluation and treatment when appropriate. #2 type 2 diabetes mellitus: Blood sugar stable, ADA diet, Accu-Cheks, insulin sliding scale, hold Metformin for now. #3 hypertension: Blood pressure stable, continue Cardizem, HCTZ and lisinopril. #4 COPD: Stable, pulse ox is maintained on room air. Plan for albuterol as needed, DuoNeb every 6 hours. #5 hypothyroidism: Continue levothyroxine. #6 GERD: Start IV Protonix drip as above. #7 fibromyalgia: Tylenol as needed, continue Flexeril and doxepin. #8 hyperlipidemia: Continue statins. #9 DVT prophylaxis: SCDs. This note was generated with [employer] dictation software. It may contain incorrect words, spelling, and punctuation that were not noted in checking the note before signing. Inpatient E&M: 24871 Init Hosp L3
--- NOTE | 2020-04-23 15:32 | RAD_ITS ---
STUDY: X-RAY CHEST REASON FOR EXAM: Female, 69 years old. SOB TECHNIQUE: Frontal view of the chest COMPARISON: July 22 2018 FINDINGS: Spinal optimization electrodes terminate in the mid thoracic spine. The lungs are clear and expanded. There is no demonstrated pleural abnormality. Normal size heart. Normal mediastinum and elodia. Normal visualized pulmonary arteries. Normal visualized aortic arch and descending thoracic aorta. There are benign calcified right hilar lymph nodes. Normal visualized thoracic spine. Normal visualized ribs, clavicles, and shoulders. There is no demonstrated abnormality of the visualized soft tissue structures of the upper abdomen. RAD/Chest 1 View (Portable) IMPRESSION: Normal x-ray examination of the chest. Electronically Signed: Marlyn Odonnell, at 17:03 EDT Tel , Service support ,
--- NOTE | 2020-04-23 17:03 | PCM.CONS.GEN ---
Problem List (1) Acute microcytic anemia Status: Acute Reason for Consult Date of Consultation: 04/23/20 History of Present Illness: The patient is a 69 year old F with past medical history as mentioned above presented to the emergency room because of fatigue and weakness. Her symptoms started around 1 month ago with generalized weakness, associated with fatigue, palpitation as well as shortness of breath. She complains of slowly progressive shortness of breath, initially was at moderate activity and has been getting worse over the last couple of weeks, associated with palpitation, dizziness and lightheadedness and without aggravating or relieving factors. She denied chest pain, syncope or presyncope. She denied significant abdominal pain, nausea or vomiting. She reported intermittent black stools. She denied epistaxis, hemoptysis, hematemesis, hematochezia or vaginal bleeding. She reported easy bruisability. She denied taking significant amount of [id number] NSAIDs. She does have history of GERD and she has been on PPI. In the emergency department, she was afebrile, slightly tachycardic, other vital signs were stable. Routine blood work was remarkable for mild leukocytosis, hemoglobin of 6 g/dL, MCV of 71, other routine blood work was unremarkable. Pro time and INR were normal. Troponin was negative. EKG is pending. She is being admitted for acute symptomatic microcytic anemia likely due to blood loss for evaluation and treatment. Her stool tested negative for blood. Patient states that she only notices dark stools when she eats prunes. Patient states she has some slight discomfort around an incisional hernia near her umbilicus. Past Medical History Past Medical History (Chronic Problems): Chronic Problems (Last Updated 07/16/18 @ 10:16 by Sadie Lopez, DAVID) Type 2 diabetes mellitus (Chronic) GERD (gastroesophageal reflux disease) (Chronic) Hyperlipidemia (Chronic) COPD (chronic obstructive pulmonary disease) (Chronic) Hypertension (Chronic) Hypothyroidism (Chronic) Fibromyalgia (Chronic) Medical History: Medical History (Last Reviewed 04/23/20 @ 17:[address] Rolando Ruiz MD) Arthritis M19.90 Cervical pain (neck) M54.2 Diabetes mellitus E11.9 Fibromyalgia M79.7 GERD (gastroesophageal reflux disease) K21.9 Osteoarthritis M19.90 Vascular disease I99.9 COPD (chronic obstructive pulmonary disease) J44.9 Hypertension I10 Allergies hydroxyzine HCl [From Vistaril] Allergy (Verified 04/23/20 12:02) Hives hydroxyzine pamoate [From Vistaril] Allergy (Verified 04/23/20 12:02) Hives Penicillins [PCN] Allergy (Verified 04/23/20 12:02) Hives Sulfa (Sulfonamide Antibiotics) Allergy (Verified 04/23/20 12:02) Hives Home Medications: Ambulatory Orders Medication Instructions Recorded Atorvastatin Calcium [Lipitor] 80 mg PO QHS 11/16/14 Doxepin HCl [Sinequan] 30 mg PO QHS 11/16/14 Fluticasone/Salmeterol [Advair 1 puff INHALATION BID 11/16/14 100/50 Diskus] Hydrochlorothiazide [Hctz] 25 mg PO BID 11/16/14 Lansoprazole [Prevacid] 30 mg PO DAILY 11/16/14 Lisinopril [Zestril] 5 mg PO DAILY 11/16/14 Tiotropium [place] [Spiriva 18 MCG] 1 puff INHALATION QHS 11/16/14 cycloBENZAPRine HCl [Flexeril] 20 mg PO BREAKFAST 11/16/14 DiphenhydrAMINE [Benadryl] 50 mg PO BID 11/17/14 Aspirin E.C. [Ecotrin] 81 mg PO DAILY@199904/23/20 Diltiazem HCl [Diltiazem 24Hr ER 180 tab PO BID 04/23/20 (Cd)] Docusate Sodium 300 mg PO QHS 04/23/20 Levothyroxine Sodium 75 mcg PO DAILY 04/23/20 Metformin HCl 1,000 mg PO BIDCM 04/23/20 Multivitamin with Minerals 1 tab PO DAILY 04/23/20 [Multiple Vitamin] cycloBENZAPRine HCl [Flexeril] 10 mg PO QHS 04/23/20 Surgical History: Surgical History (Last Reviewed 04/23/20 @ 17:[address] 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 MACHINE OPERATOR HELPER history Lives: Spouse/ Significant Other Smoking Status: Former smoker Alcohol: Rare Drugs: None - *Family History Maternal History Items: No pertinent history Paternal History Items: No pertinent history Review of Systems Constitutional: Denies: Chills, Fever, Weight Change Cardiovascular: Denies: Chest Pain, Chest Pressure, Chest Tightness, Palpitations Respiratory: Denies: Cough, Hemoptysis, Shortness of breath at rest, Shortness of breath upon exertion, Wheezing Gastrointestinal: Denies: Abdominal Pain, Constipation, Diarrhea, Hematemesis, Nausea, Melena, Vomiting Patient Problems: Active and Suspected Problems (Last Updated 07/16/18 @ 10:16 by Sadie Lopez, LEAD PROGRAMMER ANALYST) Acute microcytic anemia (Acute) - Physical Exam Vitals/I&O's: Vital Signs Temp Pulse Resp BP Pulse Ox 97.3 F L 75 18 105/78 96 04/23/20 15:56 04/23/20 15:56 04/23/20 15:56 04/23/20 15:56 04/23/20 15:56 Oxygen Delivery Method Room Air Weight: 174 lb 9.698 oz Body Mass Index (BMI) 28.1 Finger Stick Blood Glucose 156 Intake and Output for Last 24 Hours 04/21/20 04/22/20 04/23/20 23:59 23:59 23:59 Intake Total 0 / 0 Balance 0 / 0 General: Alert, Oriented x3 Lungs: Clear to auscultation Cardiovascular: Regular rate, Regular Rhythm, No murmurs Abdomen: Bowel Sounds Present, Soft, Non Tender, Non-Distended Microbiology Past 72 Hours 04/23/20 12:30 Stool Stool Occult Blood (MAGAN) - Final Laboratory Results 04/23/20 12:30: Blood Type O POSITIVE, Antibody Screen NEGATIVE, Crossmatch See Detail 04/23/20 12:50: PT 12.9, INR 1.0 04/23/20 14:15: COVID-19 (ADAM) Pending Current Medications Acetaminophen (Acetaminophen 325 Mg Tablet) 650 mg PO Q6H PRN PRN PRN Reason: Pain Score 1-10/Temp > 100.7 F Albuterol Sulfate (Albuterol 2.5 Mg/3 Ml Vial.Neb.) 2.5 mg INHALATION Q4H PRN PRN PRN Reason: Shortness of breath, wheezing Albuterol/Ipratropium (Ipratropium/Albuterol Sulfate 3 Ml Ampul.Neb) 3 ml INHALATION Q6H.RT VINCE Atorvastatin Calcium (Atorvastatin Calcium 80 Mg Tablet) 80 mg PO QHS VINCE Cyclobenzaprine HCl (Cyclobenzaprine Hcl 10 Mg Tablet) 10 mg PO BID VINCE Diltiazem HCl (Diltiazem Cd 180 Mg Capsule) 180 mg PO BID VINCE Diphenhydramine HCl (Diphenhydramine 25 Mg Capsule) 50 mg PO BID VINCE Doxepin HCl (Doxepin Hydrochloride 10 Mg Capsule) 20 mg PO QHS VINCE Hydrochlorothiazide (Hydrochlorothiazide 25 Mg Tablet) 25 mg PO DAILY VINCE Sodium Chloride () 1,000 mls @ 75 mls/hr IV .[id number] VINCE Pantoprazole Sodium 80 mg/ (Sodium Chloride) 100 mls @ 10 mls/hr CONT INF Q10H VINCE Insulin Human Lispro (Insulin Lispro 100 Unit/Ml Insuln.Pen) 0 unit SC Q6 VINCE; Protocol Levothyroxine Sodium (Levothyroxine 75 Mcg Tablet) 75 mcg PO DAILY@0600 VINCE Lisinopril (Lisinopril 5 Mg Tablet) 5 mg PO DAILY VINCE Ondansetron HCl (Ondansetron 4 Mg/2 Ml Vial) 4 mg IV Q8H PRN PRN PRN Reason: NAUSEA/VOMITING Zolpidem Tartrate (Zolpidem Tartrate 5 Mg Tablet) 5 mg PO QHS PRN PRN PRN Reason: INSOMNIA Assessment/Plan All Active Problems (Last Updated 07/16/18 @ 10:16 by Sadie Lopez, DAVID) Acute microcytic anemia (Acute) My plan will be to perform an upper and lower endoscopy on her on Sunday. Like for her to get as much blood as she needs here this day and/or tomorrow recheck a hemoglobin level on her. Risk benefits to the procedure have been reviewed in detail with the patient and the patient agrees to proceed. Patient states that her last upper and lower was 5 years ago. Office Visits / Consults: 93001 IP Consult L4
[2020-04-23 18:05] LABS: Bedside Glucose 103 mg/dL (70-110)
[2020-04-23] MEDS: Ipratropium/Albuterol Sulfate 3 ML AMPUL.NEB INHALATION (20:10)
[2020-04-23] MEDS: 0.9% Normal Saline 1,000 ML 75 ML IV (20:32)
[2020-04-23 22:25] LABS: Hematocrit 26.1 % (37-47); Hemoglobin 7.7 g/dL (12.0-15.0)
[2020-04-23] MEDS: Atorvastatin Calcium 80 MG Tablet PO (22:32)
[2020-04-23] MEDS: DiphenhydrAMINE 25 MG Capsule 50 MG PO (22:32)
[2020-04-23] MEDS: cycloBENZAPRine HCl 10 MG Tablet PO (22:32)
[2020-04-23] MEDS: Doxepin Hydrochloride 10 MG Capsule 20 MG PO (22:32)
[2020-04-23 22:53] LABS: Ferritin 5 ng/mL (8-252); Iron 18 ug/dL (50-170); Iron Binding Capacity,Total 483 ug/dL (250-450); PERCENT IRON SATURATION 3.7 % (15.0-55.0)
[2020-04-24] VITALS (14 sets, daily range): BP systolic 95–159; BP diastolic 51–66; PULSE 103–115; RESP 14–20; TEMP 36.6–37.2; O2SAT 96–100; BMI 28.1
[2020-04-24 00:16] LABS: Bedside Glucose 101 mg/dL (70-110)
[2020-04-24] MEDS: Ipratropium/Albuterol Sulfate 3 ML AMPUL.NEB INHALATION ×4 (01:15→20:31)
[2020-04-24] MEDS: Levothyroxine 75 MCG Tablet PO (06:06)
[2020-04-24 06:14] LABS: Absolute Lymphocyte Count 1.97 X10^3/uL (0.83-4.51); Absolute Neutrophil Count 8.6 X10^3/uL (2.0-7.7); Basophil# 0.09 X10^3/uL; Basophil% 0.8 % (0-1); Eosinophil# 0.22 X10^3/uL; Eosinophils% 1.9 % (0-5); Hematocrit 26.5 % (37-47); Hemoglobin 7.7 g/dL (12.0-15.0); Lymphocyte # 1.97 X10^3/ul (4.0); Lymphocyte % 16.7 % (19-41); Mean Corp Hgb Conc 29.1 g/dL (32-36); Mean Corpuscular Hgb 21.8 pg (27.0-32.0); Mean Corpuscular Volume 75.1 fL (81-99); Mean Platelet Vol. 9.2 fl (6.2-12.0); Monocyte# 0.83 X10^3/uL; NRBC Flagged by Analyzer 0 % (0-5); Neutrophil # 8.63 X10^3/uL (2.7-7.7); Neutrophil % 73.1 % (47-70); Platelet Count 338 K/mm3 (150-450); RBC Distribution Width SD 50.9 fl (35.1-43.9); Red Blood Count 3.53 M/mm3 (4.2-5.4); White Blood Count 11.8 K/mm3 (4.4-11.0)
[2020-04-24 06:42] LABS: Anion Gap 6 (5-15); BUN 13 mg/dL (7-18); BUN/Creat Ratio 19.1 RATIO (10-20); Calcium,Total 8.5 mg/dL (8.5-10.1); Chloride 104 mmol/L (98-107); Creatinine, Serum 0.68 mg/dL (0.55-1.02); EST Glomerular Filtration Rate 92 mL/min (>60); Est Glom Filt Rate - Afr Amer 111 mL/min (>60); Estimated Creatinine Clearance 51.11 ml/min; Glucose 130 mg/dL (74-106); Potassium 3.5 mmol/L (3.5-5.1); Sodium Level 138 mmol/L (136-145)
--- NOTE | 2020-04-24 08:44 | PN.SURG_ITS ---
Patient Problems: Active and Suspected Problems (Last Reviewed 04/23/20 @ 17:[address] Rolando Ruiz MD) Acute microcytic anemia (Acute) Subjective: No complaints of abdominal pain today. Objective: Abdomen is soft - Physical Exam Vitals/I&O's: Vital Signs Temp Pulse Resp BP Pulse Ox 97.9 F 108 H 20 H 95/51 L 95 04/24/20 04:00 04/24/20 08:00 04/24/20 08:00 04/24/20 04:00 04/24/20 08:00 Oxygen Delivery Method Room Air Weight: 174 lb 9.698 oz Body Mass Index (BMI) 28.1 Finger Stick Blood Glucose 156 Intake and Output for Last 24 Hours 04/22/20 04/23/20 04/24/20 23:59 23:59 23:59 Intake Total 760 / 1610 940.83 / 940.83 Output Total 2400 / 2400 Balance 760 / -190 -1459.17 / -1459.17 Microbiology Past 72 Hours 04/23/20 12:30 Stool Stool Occult Blood (MAGAN) - Final Laboratory Results 04/23/20 12:30: Blood Type O POSITIVE, Antibody Screen NEGATIVE, Crossmatch See Detail 04/23/20 12:50: PT 12.9, INR 1.0 04/23/20 14:15: COVID-19 (ADAM) Not Detected 04/23/20 18:00: POC Glucose 103 04/23/20 22:12: Iron 18 L, TIBC 483 H, Iron Saturation 3.7 L, Ferritin 5 L 04/23/20 22:12: Transferrin Pending 04/23/20 22:12: Hgb 7.7 L, Hct 26.1 L 04/24/20 00:04: POC Glucose 101 04/24/20 06:00: WBC 11.8 H, RBC 3.53 L, Hgb 7.7 L, Hct 26.5 L, MCV 75.1 L D, MCH 21.8 L, MCHC 29.1 L D, RDW Std Deviation 50.9 H, RDW Coeff of Curtis 19.0 H, Plt Count 338, MPV 9.2, Immature Gran % (Auto) 0.500, Neut % (Auto) 73.1 H, Lymph % (Auto) 16.7 L, Barron % (Auto) 7.0, Eos % (Auto) 1.9, Baso % (Auto) 0.8, Absolute Neuts (auto) 8.6 H, Absolute Lymphs (auto) 1.97, Nucleated RBC % 0 04/24/20 06:00: Sodium 138, Potassium 3.5, Chloride 104, Carbon Dioxide 28.0, Anion Gap 6, BUN 13, Creatinine 0.68, Estim Creat Clear Calc 51.11, Est GFR (MDRD) Af Amer 111, Est GFR (MDRD) Non-Af 92, BUN/Creatinine Ratio 19.1, Glucose 130 H, Calcium 8.5 Current Medications Acetaminophen (Acetaminophen 325 Mg Tablet) 650 mg PO Q6H PRN PRN PRN Reason: Pain Score 1-10/Temp > 100.7 F Albuterol Sulfate (Albuterol 2.5 Mg/3 Ml Vial.Neb.) 2.5 mg INHALATION Q4H PRN PRN PRN Reason: Shortness of breath, wheezing Albuterol/Ipratropium (Ipratropium/Albuterol Sulfate 3 Ml Ampul.Neb) 3 ml INHAL ATION Q6H.RT [facility] Last Admin: 04/24/20 07:59 Dose: 3 ml Documented by: Atorvastatin Calcium (Atorvastatin Calcium 80 Mg Tablet) 80 mg PO QHS [facility] Last Admin: 04/23/20 22:32 Dose: 80 mg Documented by: Cyclobenzaprine HCl (Cyclobenzaprine Hcl 10 Mg Tablet) 10 mg PO BID [facility] Last Admin: 04/23/20 22:32 Dose: 10 mg Documented by: Diltiazem HCl (Diltiazem Cd 180 Mg Capsule) 180 mg PO BID [facility] Last Admin: 04/23/20 22:33 Dose: Not Given Documented by: Diphenhydramine HCl (Diphenhydramine 25 Mg Capsule) 50 mg PO BID [facility] Last Admin: 04/23/20 22:32 Dose: 50 mg Documented by: Doxepin HCl (Doxepin Hydrochloride 10 Mg Capsule) 20 mg PO QHS [facility] Last Admin: 04/23/20 22:32 Dose: 20 mg Documented by: Hydrochlorothiazide (Hydrochlorothiazide 25 Mg Tablet) 25 mg PO DAILY [facility] Sodium Chloride () 1,000 mls @ 75 mls/hr IV .[id number] [facility] Last Admin: 04/23/20 20:32 Dose: 75 mls/hr Documented by: Pantoprazole Sodium 80 mg/ (Sodium Chloride) 100 mls @ 10 mls/hr CONT INF Q10H [facility] Last Admin: 04/24/20 05:36 Dose: 10 mls/hr Documented by: Insulin Human Lispro (Insulin Lispro 100 Unit/Ml Insuln.Pen) 0 unit SC Q6 [facility]; Protocol Last Admin: 04/24/20 06:05 Dose: Not Given Documented by: Levothyroxine Sodium (Levothyroxine 75 Mcg Tablet) 75 mcg PO DAILY@0600 [facility] Last Admin: 04/24/20 06:06 Dose: 75 mcg Documented by: Lisinopril (Lisinopril 5 Mg Tablet) 5 mg PO DAILY [facility] Ondansetron HCl (Ondansetron 4 Mg/2 Ml Vial) 4 mg IV Q8H PRN PRN PRN Reason: NAUSEA/VOMITING Zolpidem Tartrate (Zolpidem Tartrate 5 Mg Tablet) 5 mg PO QHS PRN PRN PRN Reason: INSOMNIA Medical Necessity - Tobacco Use Smoking Status: Former smoker Tobacco Use: Cigarettes Assessment/Plan All Active Problems (Last Reviewed 04/23/20 @ 17:[address] Rolando Ruiz MD) Acute microcytic anemia (Acute) Plan will be to perform an upper and lower scope tomorrow. Inpatient E&M: 08103 Subs Hosp L2
[2020-04-24] MEDS: 0.9% Normal Saline 1,000 ML 75 ML IV (09:42)
[2020-04-24 10:11] LABS: Bedside Glucose 140 mg/dL (70-110)
[2020-04-24] MEDS: cycloBENZAPRine HCl 10 MG Tablet PO ×2 (10:12→21:58)
[2020-04-24] MEDS: DiphenhydrAMINE 25 MG Capsule 50 MG PO ×2 (10:12→21:58)
--- NOTE | 2020-04-24 10:28 | PN_ITS ---
Patient Problems: Active and Suspected Problems (Last Reviewed 04/23/20 @ 17:[address] Rolando Ruiz MD) Acute microcytic anemia (Acute) Reason for Visit: Follow-up on severe symptomatic anemia. Subjective: Patient was seen and examined. Denied any new complaints. No melena or hematochezia. General surgery consulted. Patient is going for upper GI and colonoscopy tomorrow. Denied any chest pain or dizziness or palpitation. Received 2 units of packed RBCs. Hb remains at 7.7 Objective: Physical exam: General: Alert, Oriented x3, Cooperative, No apparent distress HEENT: Atraumatic, PERRLA, EOMI, Normocephalic Oral: Moist Mucosa, No Gingival or Mucosal Lesions/ Ulcerations Neck: Supple, No JVD, Negative Carotid Bruits, Trachea Midline, Thyroid Normal Size and Texture Lungs: No rhonchi, No wheeze, No rales, Diminished, Rales, - - Decreased breath sounds at the bases, faint bilateral basilar crackles. Cardiovascular: Regular rate, Regular Rhythm, Normal S1, Normal S2, PMI Normal, Tachycardic Abdomen: Bowel Sounds Present, Soft, Non Tender, Non-Distended, No Hepato- splenomegaly, Obese Extremities: No clubbing, No cyanosis, No edema Skin: No rashes, No breakdown Lymphatic: No Cervical, Supraclavicular, or Inguinal Adenopathy Neurological: Cranial nerves II-XII grossly intact, Motor Exam 5/5 strength throughout Psych/Mental Status: Normal Affect, Appropriate, Alert and oriented to time, place, person, mood and affect Vitals/I&O's: Vital Signs Temp Pulse Resp BP Pulse Ox 98.0 F 111 H 18 132/63 H 97 04/24/20 10:00 04/24/20 10:00 04/24/20 10:00 04/24/20 10:04/24/20 10:00 Oxygen Delivery Method Room Air Weight: 79.2 kg Body Mass Index (BMI) 28.1 Finger Stick Blood Glucose 156 Intake and Output for Last 24 Hours 04/22/20 04/23/20 04/24/20 23:59 23:59 23:59 Intake Total 760 / 1610 1928.33 / 1928.33 Output Total 2400 / 2400 Balance 760 / -190 -471.67 / -471.67 Microbiology Past 72 Hours 04/23/20 12:30 Stool Stool Occult Blood (MAGAN) - Final Laboratory Results 04/23/20 12:30: Blood Type O POSITIVE, Antibody Screen NEGATIVE, Crossmatch See Detail 04/23/20 12:50: PT 12.9, INR 1.0 04/23/20 14:15: COVID-19 (ADAM) Not Detected 04/23/20 18:00: POC Glucose 103 04/23/20 22:12: Iron 18 L, TIBC 483 H, Iron Saturation 3.7 L, Ferritin 5 L 04/23/20 22:12: Transferrin Pending 04/23/20 22:12: Hgb 7.7 L, Hct 26.1 L 04/24/20 00:04: POC Glucose 101 04/24/20 06:00: WBC 11.8 H, RBC 3.53 L, Hgb 7.7 L, Hct 26.5 L, MCV 75.1 L D, MCH 21.8 L, MCHC 29.1 L D, RDW Std Deviation 50.9 H, RDW Coeff of Curtis 19.0 H, Plt Count 338, MPV 9.2, Immature Gran % (Auto) 0.500, Neut % (Auto) 73.1 H, Lymph % (Auto) 16.7 L, Foard % (Auto) 7.0, Eos % (Auto) 1.9, Baso % (Auto) 0.8, Absolute Neuts (auto) 8.6 H, Absolute Lymphs (auto) 1.97, Nucleated RBC % 0 04/24/20 06:00: Sodium 138, Potassium 3.5, Chloride 104, Carbon Dioxide 28.0, Anion Gap 6, BUN 13, Creatinine 0.68, Estim Creat Clear Calc 51.11, Est GFR (MDRD) Af Amer 111, Est GFR (MDRD) Non-Af 92, BUN/Creatinine Ratio 19.1, Glucose 130 H, Calcium 8.5 04/24/20 06:04: POC Glucose 140 H Current Medications Acetaminophen (Acetaminophen 325 Mg Tablet) 650 mg PO Q6H PRN PRN PRN Reason: Pain Score 1-10/Temp > 100.7 F Albuterol Sulfate (Albuterol 2.5 Mg/3 Ml Vial.Neb.) 2.5 mg INHALATION Q4H PRN PRN PRN Reason: Shortness of breath, wheezing Albuterol/Ipratropium (Ipratropium/Albuterol Sulfate 3 Ml Ampul.Neb) 3 ml INHALATION Q6H.RT [facility] Last Admin: 04/24/20 07:59 Dose: 3 ml Documented by: Atorvastatin Calcium (Atorvastatin Calcium 80 Mg Tablet) 80 mg PO QHS [facility] Last Admin: 04/23/20 22:32 Dose: 80 mg Documented by: Cyclobenzaprine HCl (Cyclobenzaprine Hcl 10 Mg Tablet) 10 mg PO BID [facility] Last Admin: 04/24/20 10:12 Dose: 10 mg Documented by: Diltiazem HCl (Diltiazem Cd 180 Mg Capsule) 180 mg PO BID [facility] Last Admin: 04/24/20 10:12 Dose: Not Given Documented by: Diphenhydramine HCl (Diphenhydramine 25 Mg Capsule) 50 mg PO BID [facility] Last Admin: 04/24/20 10:12 Dose: 50 mg Documented by: Doxepin HCl (Doxepin Hydrochloride 10 Mg Capsule) 20 mg PO QHS [facility] Last Admin: 04/23/20 22:32 Dose: 20 mg Documented by: Hydrochlorothiazide (Hydrochlorothiazide 25 Mg Tablet) 25 mg PO DAILY [facility] Last Admin: 04/24/20 10:12 Dose: Not Given Documented by: Sodium Chloride () 1,000 mls @ 75 mls/hr IV .[id number] [facility] Last Admin: 04/24/20 09:42 Dose: 75 mls/hr Documented by: Pantoprazole Sodium 80 mg/ (Sodium Chloride) 100 mls @ 10 mls/hr CONT INF Q10H [facility] Last Admin: 04/24/20 05:36 Dose: 10 mls/hr Documented by: Insulin Human Lispro (Insulin Lispro 100 Unit/Ml Insuln.Pen) 0 unit SC Q6 [facility]; Protocol Last Admin: 04/24/20 06:05 Dose: Not Given Documented by: Levothyroxine Sodium (Levothyroxine 75 Mcg Tablet) 75 mcg PO DAILY@0600 [facility] Last Admin: 04/24/20 06:06 Dose: 75 mcg Documented by: Lisinopril (Lisinopril 5 Mg Tablet) 5 mg PO DAILY [facility] Last Admin: 04/24/20 10:13 Dose: Not Given Documented by: Ondansetron HCl (Ondansetron 4 Mg/2 Ml Vial) 4 mg IV Q8H PRN PRN PRN Reason: NAUSEA/VOMITING Sodium Chloride (0.9% Saline Lock 10 Ml Syringe) 10 - 40 ml IV UD PRN PRN Reason: SALINE FLUSH Zolpidem Tartrate (Zolpidem Tartrate 5 Mg Tablet) 5 mg PO QHS PRN PRN PRN Reason: INSOMNIA STROKE Vital Signs/Narrative: Vital Signs Temp Pulse Resp BP Pulse Ox 04/24/20 10:00 98.0 F 111 H 18 132/63 H 97 04/24/20 08:00 108 H 20 H 95 04/24/20 07:00 109 H Medical Necessity - Tobacco Use Smoking Status: Former smoker Tobacco Use: Cigarettes Assessment/Plan All Active Problems (Last Reviewed 04/23/20 @ 17:[address] Rolando Ruiz MD) Acute microcytic anemia (Acute) 1. Acute symptomatic anemia, unclear etiology for now, FOBT negative, status post 2 units of packed RBCs, Hemoglobin remains at 7.7. Continue on IV PPI General surgery consulted, patient is going for EGD and colonoscopy in a.m. We will transfuse 1 unit of packed RBC, trend H&H 2. Type II DM, blood sugars are controlled, Ronnie on hold, continue with blood glucose checks and insulin sliding scale 3. Hypertension, controlled, on continue with home regimen 4. COPD, not in acute exacerbation, will continue with prn breathing treatments, continue on oxygen 5. Hypothyroidism, continue on synthroid 6. Hyperlipidemia: Continue home statin regimen 7. DVT prophylaxis?SCDs on account of severe anemia, possible GI bleed Inpatient E&M: [id number] [facility] Hosp L2
[2020-04-24 12:26] LABS: Bedside Glucose 107 mg/dL (70-110)
[2020-04-24 15:27] LABS: Hematocrit 26.6 % (37-47); Hemoglobin 7.5 g/dL (12.0-15.0)
--- NOTE | 2020-04-24 15:27 | CM.UR ---
CRYSTAL SCALES Assessment: Face to Face with patient for initial transition planning/care coordination assessment. RN YORDY introduced self and role at [facility], pt voices understanding and consents to assessment at this time. Pt is sitting up in bed in no distress at this time. Pt is A/Ox4 at this time and answers all questions appropriately at this time. Patient is very talkative. Care providers, pharmacy, and demographics verified at this time. Presentation: complained of fatigue and dizziness. PCP told her to go to ER d/t abnormal labs Admitting dx: Anemia PCP: Dr. Gu Specialists: Dr. guido (if needs cardiac--seen him in past but not recently), Dr. Bee (pulm) and Dr. Mariscal (GI) Preferred Pharmacy: [facility] Insurance: [employer] MCR Prescription Benefit: [employer] MCR--no problems Living Will/HPOA: yes. HPOA is sister Uyen Nagy LNOK: Uyen Nagy. Living Arrangements: Lives alone in a [address]. Steps to basement having railing. only 2 steps into home. Independent. Has 2 nephews that will help with yard and around house. Transportation: Self or sister. DME shower chair, bsc, raised toilet seat, toilet frame, cane, hospital bed, w/c, rollator, power scooter, nebulizer. SNF/HHC: None. States was in hospice before he passed but she has never had either. Pt states no concerns with going home at time of discharge. States she will let her family know if/when she needs something. She is adamant she does not need any help and she doesn't want to go to SNF nor HHC. States that HHC is an invasion of privacy. Discussed possibilities based on the source of the bleed. Verb understanding but still insists she will go home. States we can tell [place] anything and she tells [place] everything. States she does not trust rest of her family. States likes to be left alone in her house. Called herself a loner. She does not like being bothered. CM to follow for any further discharge planning/needs. Advised pt to ask for CM if any further questions/concerns/needs arise, voices understanding. Pt Goal: Home Plan: Home Amanda Wilkerson RN, CCM.
[2020-04-24] MEDS: Electrolyte Solution/Peg's 4000 ML PO (15:33)
[2020-04-24 17:35] LABS: Bedside Glucose 117 mg/dL (70-110)
[2020-04-24 21:06] LABS: Hematocrit 32.4 % (37-47); Hemoglobin 9.5 g/dL (12.0-15.0)
[2020-04-24] MEDS: Atorvastatin Calcium 80 MG Tablet PO (21:58)
[2020-04-24] MEDS: Doxepin Hydrochloride 10 MG Capsule 20 MG PO (22:00)
[2020-04-24 23:41] LABS: Bedside Glucose 111 mg/dL (70-110)
[2020-04-25] VITALS (20 sets, daily range): BP systolic 106–158; BP diastolic 56–76; PULSE 100–126; RESP 16–32; TEMP 36.2–37.2; O2SAT 92–98
--- NOTE | 2020-04-25 | GASB_PTH ---
PATIENT: VIRAL RODGERS LOC: [facility] U#:[id number] AGE/SX: 69/F ROOM: [facility] RE04/23/[address]: Dr. Alicia Vega MD : 1950 BED: 1 DIS: 04/26/2020 SPEC #: [id number] RECD: 04/25/20 10:19 STATUS: SHANKAR REDiane #: [id number] BETTY: 04/25/20 00:[address]: Rolando Ruiz DEPT: SURGICAL PATHOLOGY RECD BY: Bebo Gaona ENTERED: 04/26/20 08:01 SP TYPE: Gastric Bx OTHR DR: MD Dr. Lazaro John MD Dr. Nana Yaa Koram, MD Dr. Tai Chi Kwok, MD Tissues: A - Gastric mucous membrane B - Transverse colon Procedures: Surgery Specimen Level IV Comments: @ Ordering doctor for SUIV edited from to @ by ROSENDA at 04/26/20 09 @ Submitting doctor edited from to @ by RGOVANIA at 04/26/20 0946 HEADER OPERATION: Colonoscopy, EGD (MAC) PRE-OP DIAGNOSIS: Acute microcytic anemia TISSUE SUBMITTED: A - Antrum biopsy for histo and H. pylori, B - Transverse colon polyps (3) MICROSCOPIC DIAGNOSIS A. Antrum biopsy: Mild gastritis. See microscopic description and comment. B. Transverse colon polyps (3), biopsy: Fragments of tubular adenoma. SJ:gwen 04/27/20 COMMENT A. The results of immunohistochemistry for Helicobacter pylori will be reported separately ([id number]). MICROSCOPIC DESCRIPTION Slides are reviewed. A. The specimen shows fragments of gastric mucosa with chronic inflammatory cell infiltrates in the lamina propria consisting of lymphocytes and plasma cells, consistent with mild chronic gastritis. GROSS DESCRIPTION A - Received in fixative is one container labeled with the patient's name and designated antrum biopsy. The specimen consists of one irregular fragment of light wilkinson soft tissue that measures 0.4 x 0.2 x 0.1 cm. The specimen is totally submitted in one cassette. B - Received in fixative is one container labeled with the patient's name and designated transverse polyp. The specimen consists of multiple irregular fragments of wilkinson-pink polypoid tissue that in aggregate measure 1.5 x 1 x 0.4 cm. The specimen is totally submitted in one cassette. / SJ:rg 04/26/20 TC:1 CPT: 50650 x2
[2020-04-25] MEDS: 0.9% Normal Saline 1,000 ML 75 ML IV ×2 (01:29→11:30)
--- NOTE | 2020-04-25 04:01 | CPS ---
No aerosol treatment given at 0200, pt sleeping
[2020-04-25] MEDS: Levothyroxine 75 MCG Tablet PO (05:48)
[2020-04-25 06:01] LABS: Thyroid Stim Hormone (TSH) 3.06 uIU/mL (0.358-3.74)
[2020-04-25 06:50] LABS: Bedside Glucose 105 mg/dL (70-110)
[2020-04-25] MEDS: Ipratropium/Albuterol Sulfate 3 ML AMPUL.NEB INHALATION ×3 (07:15→19:49)
--- NOTE | 2020-04-25 08:35 | IMM_PTH ---
PATIENT: VIRAL RODGERS LOC: U U#:[id number] AGE/SX: 69/F ROOM: [facility] RE04/23/[address]: Dr. Alicia Vega MD : 1950 BED: 1 DIS: 04/26/2020 SPEC #: [id number] RECD: 04/26/20 10:24 STATUS: SHANKAR REQ #: [id number] BETTY: 04/25/20 08:[address]: Rolando Ruiz DEPT: IMMUNOHISTOCHEMISTRY RECD BY: Pam Potter ENTERED: 04/26/20 10:26 SP TYPE: IMMUNO OTHR DR: MD Dr. Alicia Chi MD Dr. Tai Chi Kwok, MD Tissues: A - Stomach, NOS Procedures: H Pylori (initial) PHYSICIAN & INSTITUTION [place] [id number] SPECIMEN INFORMATION: Tissue Source: A - Antrum biopsy Clinical Info: Acute microcytic anemia Specimen Number: [id number] CPT code: 47648 METHODOLOGY: Deparaffinized sections of prefer/formalin-fixed tissue or PAP/DQ stained slides are incubated with monoclonal/polyclonal antibodies/oligonucleotide probes. Localization is made via biotin free immunoperoxidase method. Appropriate controls are performed and reacted as expected. Results on target cell population are indicated in the following table: RESULTS: ANTIBODY / CLONE RESULT Block A H Pylori (polyclonal) negative These tests were developed and their performance characteristics determined by [facility]. They may not have been cleared or approved by the U.S. Food and Drug Administration. The FDA has determined that such clearance or approval is not necessary. INTERPRETATION: A. Antrum biopsy: Negative for Helicobacter pylori organisms. SJ:gwen 04/27/20
[2020-04-25 09:17] LABS: Hemoglobin A1c 6.3 % (3.8-5.6)
--- NOTE | 2020-04-25 09:17 | OP.CCLET_ITS ---
04/25/2020 Mt Gu MD [address] [place] [address] Re : Upper GI endoscopy procedure for Paula Hough Dear Dr. Gu This procedure was performed on Saturday, April 25, 2020. My impressions and recommendations are as follows: Impressions : - Normal esophagus. No specimens collected. - Non-bleeding gastric ulcers with no stigmata of bleeding. Biopsied. - Normal examined duodenum. Recommendations : - Await pathology results. - Repeat upper endoscopy in 6 months to evaluate the response to therapy. - Return to my office in 1 week. - Continue present medications. My findings are described in the full procedure note, which is enclosed. If I can be of further assistance, please feel free to contact me at Doctor phone number(s): , Fax: [phone], Work: . Sincerely, MD Rolando Nielsen MD 04/25/2020 9:15:41 AM This report has been signed electronically.
--- NOTE | 2020-04-25 09:17 | OP.EGD_ITS ---
Patient Name: Paula Hough Procedure Date: 04/25/2020 7:55 AM Date of : 1950 Age: 69 Procedure: Upper GI endoscopy Indications: Iron deficiency anemia Providers: Rolando Ruiz MD Medicines: See the Anesthesia note for documentation of the administered medications Patient Profile: This is a 69 year old female. Refer to note in patient chart for documentation of history and physical. Complications: No immediate complications. Procedure: Pre-Anesthesia Assessment: - Prior to the procedure, a History and Physical was performed, and patient medications and allergies were reviewed. The patient's tolerance of previous anesthesia was also reviewed. The risks and benefits of the procedure and the sedation options and risks were discussed with the patient. All questions were answered, and informed consent was obtained. Prior Anticoagulants: The patient has taken no previous anticoagulant or antiplatelet agents. ASA Grade Assessment: II - A patient with mild systemic disease. After reviewing the risks and benefits, the patient was deemed in satisfactory condition to undergo the procedure. After obtaining informed consent, the endoscope was passed under direct vision. Throughout the procedure, the patient's blood pressure, pulse, and oxygen saturations were monitored continuously. The Endoscope was introduced through the mouth, and advanced to the second part of duodenum. The upper GI endoscopy was accomplished without difficulty. The patient tolerated the procedure well. Scope In: 8:42:58 AM Scope Out: 8:46:11 AM Total Procedure Duration Time 0 hours 3 minutes 13 seconds Findings: The examined esophagus was normal. No biopsies or other specimens were collected for this exam. Many non-bleeding cratered gastric ulcers with no stigmata of bleeding were found on the lesser curvature of the stomach. The largest lesion was 10 mm in largest dimension. Biopsies were taken with a cold forceps for Helicobacter pylori testing. The examined duodenum was normal. Impression: - Normal esophagus. No specimens collected. - Non-bleeding gastric ulcers with no stigmata of bleeding. Biopsied. - Normal examined duodenum. Recommendation: - Await pathology results. - Repeat upper endoscopy in 6 months to evaluate the response to therapy. - Return to my office in 1 week. - Continue present medications. Procedure Code(s): --- Professional --- 18483, Esophagogastroduodenoscopy, flexible, transoral; with biopsy, single or multiple Diagnosis Code(s): --- Professional --- K25.9, Gastric ulcer, unspecified as acute or chronic, without hemorrhage or perforation D50.9, Iron deficiency anemia, unspecified CPT copyright 2017 [employer]. All rights reserved. The codes documented in this report are preliminary and upon hadoop consultant review may be revised to meet current compliance requirements. MD Rolando Nielsen MD 04/25/2020 9:15:41 AM This report has been signed electronically. Number of Addenda: 0 Note Initiated On: 04/25/2020 7:55 AM
--- NOTE | 2020-04-25 09:20 | OP.COLON_ITS ---
Patient Name: Paula Hough Procedure Date: 04/25/2020 8:47 AM Date of : 1950 Age: 69 Procedure: Colonoscopy Indications: Iron deficiency anemia Providers: Rolando Ruiz MD Medicines: See the Anesthesia note for documentation of the administered medications Patient Profile: This is a 69 year old female. Refer to note in patient chart for documentation of history and physical. Last Colonoscopy: more than 10 years ago. Complications: No immediate complications. Procedure: Pre-Anesthesia Assessment: - Prior to the procedure, a History and Physical was performed, and patient medications and allergies were reviewed. The patient's tolerance of previous anesthesia was also reviewed. The risks and benefits of the procedure and the sedation options and risks were discussed with the patient. All questions were answered, and informed consent was obtained. Prior Anticoagulants: The patient has taken no previous anticoagulant or antiplatelet agents. ASA Grade Assessment: II - A patient with mild systemic disease. After reviewing the risks and benefits, the patient was deemed in satisfactory condition to undergo the procedure. After I obtained informed consent, the scope was passed under direct vision. Throughout the procedure, the patient's blood pressure, pulse, and oxygen saturations were monitored continuously. The adult colonoscope was introduced through the anus and advanced to the cecum, identified by appendiceal orifice and ileocecal valve. The colonoscopy was performed without difficulty. The patient tolerated the procedure well. The quality of the bowel preparation was adequate to identify polyps 6 mm and larger in size. Scope In: 8:48:34 AM Scope Withdrawal Time 0 hours 14 minutes 17 seconds Scope Out: 9:11:37 AM Total Procedure Duration Time 0 hours 23 minutes 3 seconds Findings: Two sessile polyps were found in the transverse colon. The polyps were 5 mm in size. These polyps were removed with a jumbo cold forceps. Resection and retrieval were complete. A 12 mm polyp was found in the transverse colon. The polyp was sessile. The polyp was removed with a hot snare. Resection and retrieval were complete. To prevent bleeding after the polypectomy, two hemostatic clips were successfully placed. There was no bleeding at the end of the procedure. Patient had multiple other polyps that were sessile in nature and given the fact that we will have to treat her for her peptic ulcer disease and I knew I was going to have to do another colonoscopy on her at least within a year I did not think that it was prudent to keep her under anesthesia to do all these at one time. I am going to see her back in the office and we will reschedule her for a repeat upper scope probably within 6 weeks and then a repeat colonoscopy within 1 year and hopefully will be able to do a better bowel prep so that I do not miss anything. Impression: - Two 5 mm polyps in the transverse colon, removed with a jumbo cold forceps. Resected and retrieved. - One 12 mm polyp in the transverse colon, removed with a hot snare. Resected and retrieved. Clips were placed. Recommendation: - Repeat colonoscopy in 1 year for surveillance of multiple polyps. - Return to my office in 1 week. - Continue present medications. Procedure Code(s): --- Professional --- 90040, Colonoscopy, flexible; with removal of tumor(s), polyp(s), or other lesion(s) by snare technique [id number], 59, Colonoscopy, flexible; with biopsy, single or multiple Diagnosis Code(s): --- Professional --- D12.3, Benign neoplasm of transverse colon (hepatic flexure or splenic flexure) D50.9, Iron deficiency anemia, unspecified CPT copyright 2017 [employer]. All rights reserved. The codes documented in this report are preliminary and upon scoop filler review may be revised to meet current compliance requirements. MD Rolando Nielsen MD 04/25/2020 9:20:08 AM This report has been signed electronically. Number of Addenda: 0 Note Initiated On: 04/25/2020 8:47 AM
--- NOTE | 2020-04-25 09:20 | OP.CCLET_ITS ---
04/25/2020 Mt Gu MD [address] [place] [address] Re : Colonoscopy procedure for Paula Hermanr Dear Dr. Gu This procedure was performed on Saturday, April 25, 2020. My impressions and recommendations are as follows: Impressions : - Two 5 mm polyps in the transverse colon, removed with a jumbo cold forceps. Resected and retrieved. - One 12 mm polyp in the transverse colon, removed with a hot snare. Resected and retrieved. Clips were placed. Recommendations : - Repeat colonoscopy in 1 year for surveillance of multiple polyps. - Return to my office in 1 week. - Continue present medications. My findings are described in the full procedure note, which is enclosed. If I can be of further assistance, please feel free to contact me at Doctor phone number(s): , Fax: [phone], Work: . Sincerely, MD Rolando Nielsen MD 04/25/2020 9:20:08 AM This report has been signed electronically.
[2020-04-25] MEDS: Albuterol 2.5 MG/3 ML VIAL.NEB. INHALATION (09:25)
[2020-04-25] MEDS: DiphenhydrAMINE 25 MG Capsule 50 MG PO ×2 (11:26→21:44)
[2020-04-25] MEDS: cycloBENZAPRine HCl 10 MG Tablet PO ×2 (11:27→21:44)
[2020-04-25 12:30] LABS: Bedside Glucose 96 mg/dL (70-110)
--- NOTE | 2020-04-25 13:29 | NURSING ---
[id number] pt agitated in room and out in hallway trying to leave. Zhane RN-charge nurse aware. Security and house police aware and to room. talked to pt and encouraged pt to stay in room. Jamin Dickerson RN
--- NOTE | 2020-04-25 14:00 | PCM.PN.HOSP ---
<Deacon Leo - Last Filed: 04/25/20 14:00> Patient Problems: Active and Suspected Problems (Last Reviewed 04/23/20 @ 17:[address] Rolando Ruiz MD) Acute microcytic anemia (Acute) Reason for Visit: fatigue Subjective: Pt resting comfortably in bed. She had an EGD and colonoscopy this AM. She had multiple polyps and non bleeding ulcer. She currently has no nausea, vomiting, or abdominal pain. She tolerated clears, and is planning to have a normal dinner tonight. No fever/chills. Vitals/I&O's: Vital Signs Temp Pulse Resp BP Pulse Ox 97.7 F L 115 H 16 146/66 H 92 04/25/20 10:15 04/25/20 13:16 04/25/20 13:16 04/25/20 10:15 04/25/20 10:15 Oxygen Delivery Method Room Air Weight: 174 lb 9.698 oz Body Mass Index (BMI) 28.1 Finger Stick Blood Glucose 156 Intake and Output for Last 24 Hours 04/23/20 04/24/20 04/25/20 23:59 23:59 23:59 Intake Total 760 / 1610 5024.08 / 5024.08 1439.17 / 1439.17 Output Total 6900 / 6900 Balance 760 / -190 -1875.92 / -1875.92 1439.17 / 1439.17 General: Alert, Oriented x3, Cooperative HEENT: Atraumatic, PERRLA, EOMI, Normocephalic Neck: Supple, No JVD, Negative Carotid Bruits Lungs: Clear to auscultation, Normal air movement Cardiovascular: Regular rate, No murmurs Abdomen: Bowel Sounds Present, Soft, Non Tender Extremities: No edema, Capillary Refill Less than 3 Seconds Skin: No rashes, No breakdown Musculoskeletal: No Tenderness to Palpation of Joints or Extremities Neurological: Cranial nerves II-XII grossly intact Psych/Mental Status: Normal Affect, Appropriate, Alert and oriented to time, place, person, mood and affect Microbiology Past 72 Hours 04/23/20 12:30 Stool Stool Occult Blood (MAGAN) - Final Laboratory Results 04/24/20 12:35: Crossmatch See Detail 04/24/20 15:13: Hgb 7.5 L, Hct 26.6 L 04/24/20 17:32: POC Glucose 117 H 04/24/20 20:56: Hgb 9.5 L, Hct 32.4 L 04/24/20 23:22: POC Glucose 111 H 04/25/20 05:24: TSH 3.06 04/25/20 05:24: Hemoglobin A1c 6.3 H 04/25/20 05:47: POC Glucose 105 04/25/20 12:16: POC Glucose 96 Current Medications Acetaminophen (Acetaminophen 325 Mg Tablet) 650 mg PO Q6H PRN PRN PRN Reason: Pain Score 1-10/Temp > 100.7 F Albuterol Sulfate (Albuterol 2.5 Mg/3 Ml Vial.Neb.) 2.5 mg INHALATION Q4H PRN PRN PRN Reason: Shortness of breath, wheezing Last Admin: 04/25/20 09:25 Dose: 2.5 mg Documented by: Albuterol/Ipratropium (Ipratropium/Albuterol Sulfate 3 Ml Ampul.Neb) 3 ml INHALATION Q6H.RT [facility] Last Admin: 04/25/20 13:16 Dose: 3 ml Documented by: Atorvastatin Calcium (Atorvastatin Calcium 80 Mg Tablet) 80 mg PO QHS [facility] Last Admin: 04/24/20 21:58 Dose: 80 mg Documented by: Cyclobenzaprine HCl (Cyclobenzaprine Hcl 10 Mg Tablet) 10 mg PO BID [facility] Last Admin: 04/25/20 11:27 Dose: 10 mg Documented by: Diltiazem HCl (Diltiazem Cd 180 Mg Capsule) 180 mg PO BID [facility] Last Admin: 04/25/20 11:24 Dose: Not Given Documented by: Diphenhydramine HCl (Diphenhydramine 25 Mg Capsule) 50 mg PO BID [facility] Last Admin: 04/25/20 11:26 Dose: 50 mg Documented by: Doxepin HCl (Doxepin Hydrochloride 10 Mg Capsule) 20 mg PO QHS [facility] Last Admin: 04/24/20 22:00 Dose: 20 mg Documented by: Hydrochlorothiazide (Hydrochlorothiazide 25 Mg Tablet) 25 mg PO DAILY [facility] Last Admin: 04/25/20 11:24 Dose: Not Given Documented by: Sodium Chloride () 1,000 mls @ 75 mls/hr IV .[id number] [facility] Last Admin: 04/25/20 11:30 Dose: 75 mls/hr Documented by: Insulin Human Lispro (Insulin Lispro 100 Unit/Ml Insuln.Pen) 0 unit SC Q6 [facility]; Protocol Last Admin: 04/25/20 12:25 Dose: Not Given Documented by: Levothyroxine Sodium (Levothyroxine 75 Mcg Tablet) 75 mcg PO DAILY@0600 [facility] Last Admin: 04/25/20 05:48 Dose: 75 mcg Documented by: Lisinopril (Lisinopril 5 Mg Tablet) 5 mg PO DAILY [facility] Last Admin: 04/25/20 11:25 Dose: Not Given Documented by: Ondansetron HCl (Ondansetron 4 Mg/2 Ml Vial) 4 mg IV Q8H PRN PRN PRN Reason: NAUSEA/VOMITING Pantoprazole Sodium (Pantoprazole Sodium 40 Mg Tablet) 40 mg PO BID [facility] Sodium Chloride (0.9% Saline Lock 10 Ml Syringe) 10 - 40 ml IV UD PRN PRN Reason: SALINE FLUSH Zolpidem Tartrate (Zolpidem Tartrate 5 Mg Tablet) 5 mg PO QHS PRN PRN PRN Reason: INSOMNIA STROKE Vital Signs/Narrative: Vital Signs Temp Pulse Resp BP Pulse Ox 04/25/20 13:16 115 H 16 04/25/20 10:15 97.7 F L 110 H 20 H 146/66 H 92 Medical Necessity - Tobacco Use Smoking Status: Former smoker Tobacco Use: Cigarettes Assessment/Plan All Active Problems (Last Reviewed 04/23/20 @ 17:[address] Rolando Ruiz MD) Acute microcytic anemia (Acute) 1. Acute on chronic blood loss anemia presumed 2/2 GI bleed source unclear. - non bleeding ulcer on EGD, multiple polyps on colonoscopy. Start protonix BID. Pt will need repeat colonoscopy for more polyp removal. Follow up with gen surgery as outpatient in 1 week. Pt still tachy, will monitor overnight. She does have a family hx of colon cancer. Stool occult blood was negative. She received 3 units PRBC so far this admission. 2. T2DM - SSI. A1C 6.3 demonstrating adequate control for her age. 3. HTN - mildly elevated 4. COPD - no exacerbation 5. Hypothyroidism - continue synthroid. TSH normal. 6. HLD - statin DVT ppx: SCDs This patient was seen by Deacon Leo PA-C under the supervision of Dr. Perry. <Aishwarya Perry - Last Filed: 04/25/20 14:38> Vitals/I&O's: Vital Signs Temp Pulse Resp BP Pulse Ox 97.7 F L 100 20 H 146/66 H 92 04/25/20 10:15 04/25/20 14:00 04/25/20 14:00 04/25/20 10:15 04/25/20 10:15 Oxygen Delivery Method Room Air Weight: 79.2 kg Body Mass Index (BMI) 28.1 Finger Stick Blood Glucose 156 Intake and Output for Last 24 Hours 04/23/20 04/24/20 04/25/20 23:59 23:59 23:59 Intake Total 760 / 1610 5024.08 / 5024.08 1462.00 / 1462.00 Output Total 6900 / 6900 Balance 760 / -190 -1875.92 / -1875.92 1462.00 / 1462.00 Microbiology Past 72 Hours 04/23/20 12:30 Stool Stool Occult Blood (MAGAN) - Final Laboratory Results 04/24/20 12:35: Crossmatch See Detail 04/24/20 15:13: Hgb 7.5 L, Hct 26.6 L 04/24/20 17:32: POC Glucose 117 H 04/24/20 20:56: Hgb 9.5 L, Hct 32.4 L 04/24/20 23:22: POC Glucose 111 H 04/25/20 05:24: TSH 3.06 04/25/20 05:24: Hemoglobin A1c 6.3 H 04/25/20 05:47: POC Glucose 105 04/25/20 12:16: POC Glucose 96 Current Medications Acetaminophen (Acetaminophen 325 Mg Tablet) 650 mg PO Q6H PRN PRN PRN Reason: Pain Score 1-10/Temp > 100.7 F Albuterol Sulfate (Albuterol 2.5 Mg/3 Ml Vial.Neb.) 2.5 mg INHALATION Q4H PRN PRN PRN Reason: Shortness of breath, wheezing Last Admin: 04/25/20 09:25 Dose: 2.5 mg Documented by: Albuterol/Ipratropium (Ipratropium/Albuterol Sulfate 3 Ml Ampul.Neb) 3 ml INHALATION Q6H.RT [facility] Last Admin: 04/25/20 13:16 Dose: 3 ml Documented by: Atorvastatin Calcium (Atorvastatin Calcium 80 Mg Tablet) 80 mg PO QHS [facility] Last Admin: 04/24/20 21:58 Dose: 80 mg Documented by: Cyclobenzaprine HCl (Cyclobenzaprine Hcl 10 Mg Tablet) 10 mg PO BID [facility] Last Admin: 04/25/20 11:27 Dose: 10 mg Documented by: Diltiazem HCl (Diltiazem Cd 180 Mg Capsule) 180 mg PO BID [facility] Last Admin: 04/25/20 11:24 Dose: Not Given Documented by: Diphenhydramine HCl (Diphenhydramine 25 Mg Capsule) 50 mg PO BID [facility] Last Admin: 04/25/20 11:26 Dose: 50 mg Documented by: Doxepin HCl (Doxepin Hydrochloride 10 Mg Capsule) 20 mg PO QHS [facility] Last Admin: 04/24/20 22:00 Dose: 20 mg Documented by: Hydrochlorothiazide (Hydrochlorothiazide 25 Mg Tablet) 25 mg PO DAILY [facility] Last Admin: 04/25/20 11:24 Dose: Not Given Documented by: Sodium Chloride () 1,000 mls @ 100 mls/hr IV .Q10H [facility] Last Admin: 04/25/20 11:30 Dose: 75 mls/hr Documented by: Insulin Human Lispro (Insulin Lispro 100 Unit/Ml Insuln.Pen) 0 unit SC Q6 [facility]; Protocol Last Admin: 04/25/20 12:25 Dose: Not Given Documented by: Levothyroxine Sodium (Levothyroxine 75 Mcg Tablet) 75 mcg PO DAILY@0600 [facility] Last Admin: 04/25/20 05:48 Dose: 75 mcg Documented by: Lisinopril (Lisinopril 5 Mg Tablet) 5 mg PO DAILY [facility] Last Admin: 04/25/20 11:25 Dose: Not Given Documented by: Ondansetron HCl (Ondansetron 4 Mg/2 Ml Vial) 4 mg IV Q8H PRN PRN PRN Reason: NAUSEA/VOMITING Pantoprazole Sodium (Pantoprazole Sodium 40 Mg Tablet) 40 mg PO BID [facility] Sodium Chloride (0.9% Saline Lock 10 Ml Syringe) 10 - 40 ml IV UD PRN PRN Reason: SALINE FLUSH Zolpidem Tartrate (Zolpidem Tartrate 5 Mg Tablet) 5 mg PO QHS PRN PRN PRN Reason: INSOMNIA STROKE Vital Signs/Narrative: Vital Signs Pulse Resp 04/25/20 14:00 100 20 H 04/25/20 13:16 115 H 16 Assessment/Plan This patient was seen in conjunction with RENATO Elliott. I have independently interviewed and examined the patient and reviewed pertinent historical, laboratory, and other data. Please refer to RENATO Elliott note for his patient's presentation, findings, and recommendations. I have reviewed and his note and concur with his documentation Patient was seen and examined. Physical Exam: Gen: Comfortable, not pale, not jaundiced CVS:HS I +II, regular, no murmurs RESP: CTA GI: BS present and normal, soft, nontender, no palpable organs EXT:No edema ASSESSMENT: 1. Acute on chronic blood loss anemia secondary to acute GI bleed 2. Acute nonbleeding gastric ulcers 3. Type II DM 4. Hypertension 5. COPD 6. Hypothyroidism 7. Hyperlipidemia Plan: Continue on oral pantoprazole Would add sacral fate Continue to monitor H&H Continue gentle IV fluids; discontinue IV fluids tomorrow if not tachycardic and improved Inpatient E&M: 69529 Subs Hosp L3
[2020-04-25 14:55] LABS: Hematocrit 29.1 % (37-47); Hemoglobin 8.6 g/dL (12.0-15.0)
[2020-04-25] MEDS: Sucralfate 1 GM Tablet PO ×2 (16:03→21:44)
[2020-04-25 17:56] LABS: Bedside Glucose 91 mg/dL (70-110)
[2020-04-25 20:59] LABS: Hematocrit 30.2 % (37-47); Hemoglobin 8.7 g/dL (12.0-15.0)
[2020-04-25] MEDS: Atorvastatin Calcium 80 MG Tablet PO (21:44)
[2020-04-25] MEDS: Pantoprazole Sodium 40 MG Tablet PO (21:44)
[2020-04-25] MEDS: 0.9% Normal Saline 1,000 ML 100 ML IV (21:47)
[2020-04-25] MEDS: Doxepin Hydrochloride 10 MG Capsule 20 MG PO (21:48)
[2020-04-25 22:15] LABS: Bedside Glucose 106 mg/dL (70-110)
[2020-04-26] VITALS (9 sets, daily range): BP systolic 126–150; BP diastolic 54–72; PULSE 101–141; RESP 16–18; TEMP 36.2–36.8; O2SAT 92–98
--- NOTE | 2020-04-26 01:43 | CPS ---
pt did not want aerosol at 0130
[2020-04-26] MEDS: dilTIAZem CD 180 MG Capsule PO ×2 (03:42→10:39)
[2020-04-26 03:52] LABS: Transferrin 374 mg/dL (192-364)
[2020-04-26 06:03] LABS: Absolute Lymphocyte Count 2.27 X10^3/uL (0.83-4.51); Absolute Neutrophil Count 7.7 X10^3/uL (2.0-7.7); Basophil# 0.06 X10^3/uL; Basophil% 0.5 % (0-1); Eosinophil# 0.53 X10^3/uL; Eosinophils% 4.7 % (0-5); Hematocrit 31.1 % (37-47); Hemoglobin 8.9 g/dL (12.0-15.0); Lymphocyte # 2.27 X10^3/ul (4.0); Lymphocyte % 20.3 % (19-41); Mean Corp Hgb Conc 28.6 g/dL (32-36); Mean Corpuscular Hgb 22.4 pg (27.0-32.0); Mean Corpuscular Volume 78.1 fL (81-99); Mean Platelet Vol. 9.1 fl (6.2-12.0); Monocyte# 0.61 X10^3/uL; Monocyte% 5.4 % (0-10); NRBC Flagged by Analyzer 0 % (0-5); Neutrophil # 7.68 X10^3/uL (2.7-7.7); Neutrophil % 68.7 % (47-70); POSITIVE MORPHOLOGY YES; Platelet Count 335 K/mm3 (150-450); RBC Distribution Width CV 20.9 % (11.6-14.6); RBC Distribution Width SD 58.5 fl (35.1-43.9); Red Blood Count 3.98 M/mm3 (4.2-5.4); White Blood Count 11.2 K/mm3 (4.4-11.0)
[2020-04-26] MEDS: Levothyroxine 75 MCG Tablet PO (06:22)
[2020-04-26] MEDS: Sucralfate 1 GM Tablet PO ×2 (06:23→10:39)
[2020-04-26 06:24] LABS: Differential Indicated SCAN CRITERIA MET
[2020-04-26] MEDS: Metoprolol Tartrate 5 MG/5 ML Vial IV (06:44)
[2020-04-26 06:45] LABS: ALB/GLOB Ratio 0.8 RATIO (0.9-2.4); AST(SGOT) 36 U/L (15-37); Alanine Aminotransfer ALT/SGPT 24 U/L (13-56); Albumin, Serum 3.1 g/dL (3.2-5.0); Alkaline Phosphatase 109 U/L (45-117); Anion Gap 5 (5-15); BUN 6 mg/dL (7-18); Calcium,Total 8.3 mg/dL (8.5-10.1); Chloride 112 mmol/L (98-107); Creatinine, Serum 0.75 mg/dL (0.55-1.02); EST Glomerular Filtration Rate 82 mL/min (>60); Est Glom Filt Rate - Afr Amer 100 mL/min (>60); Estimated Creatinine Clearance 51.11 ml/min; Globulin 4.1 g/dL (2.2-4.2); Glucose 157 mg/dL (74-106); Potassium 3.9 mmol/L (3.5-5.1); Protein, Total 7.2 g/dL (6.4-8.2); Sodium Level 142 mmol/L (136-145)
[2020-04-26] MEDS: 0.9% Saline Lock 10 ML Syringe IV (06:45)
--- NOTE | 2020-04-26 06:51 | PCM.HOSP.N ---
Hospitalist Note HR in 140s. Ordered PO dilt to be given (patient had been refusing). HR remained in 140s, instructed RN to given 1 time dose of 5 mg IV metoprolol.
[2020-04-26 06:52] LABS: Differential Comment SCANNED; Polychromasia 1+
[2020-04-26 07:05] LABS: Bedside Glucose 144 mg/dL (70-110)
[2020-04-26] MEDS: Ipratropium/Albuterol Sulfate 3 ML AMPUL.NEB INHALATION (07:10)
[2020-04-26] MEDS: 0.9% Normal Saline 1,000 ML 100 ML IV (07:36)
[2020-04-26] MEDS: DiphenhydrAMINE 25 MG Capsule 50 MG PO (10:38)
[2020-04-26] MEDS: cycloBENZAPRine HCl 10 MG Tablet PO (10:38)
[2020-04-26] MEDS: Lisinopril 5 MG Tablet PO (10:38)
[2020-04-26] MEDS: hydroCHLOROthiazide 25 MG Tablet PO (10:38)
[2020-04-26] MEDS: Pantoprazole Sodium 40 MG Tablet PO (10:39)
--- NOTE | 2020-04-26 10:54 | PCM.DC ---
- Discharge Diagnoses Current Active Problems: Current Active and Chronic Problems (Last Reviewed 04/23/20 @ 17:[address] Rolando Ruiz MD) Type 2 diabetes mellitus (Chronic) Acute microcytic anemia (Acute) GERD (gastroesophageal reflux disease) (Chronic) Hyperlipidemia (Chronic) COPD (chronic obstructive pulmonary disease) (Chronic) Hypertension (Chronic) Hypothyroidism (Chronic) Fibromyalgia (Chronic) You will use the following diet at home:: Calorie/Carbohydrate Controlled (specify 1200, 1400, etc) - 1800 micah /day, Cardiac Your food should be the consistency of: Regular Your liquids should be the consistency of: Regular/Thin Discharge Activity: Return to Normal Activity Call your doctor if you observe: Dizziness, Fainting spells, - - black stools Additional Instructions: Avoid all NSAIDs, alcohol, and smoking. You will need to talk to your doctor about having a CBC (blood test) in 1 week. Allergies/Adverse Reactions: Allergies hydroxyzine HCl [From Vistaril] Allergy (Verified 04/23/20 12:02) Hives hydroxyzine pamoate [From Vistaril] Allergy (Verified 04/23/20 12:02) Hives Penicillins [PCN] Allergy (Verified 04/23/20 12:02) Hives Sulfa (Sulfonamide Antibiotics) Allergy (Verified 04/23/20 12:02) Hives Medications to take at Discharge Atorvastatin Calcium [Lipitor] 80 mg PO QHS 11/16/14 Doxepin HCl [Sinequan] 30 mg PO QHS 11/16/14 Fluticasone/Salmeterol [Advair 100/50 Diskus] 1 puff INHALATION BID 11/16/14 Hydrochlorothiazide [Hctz] 25 mg PO BID 11/16/14 Lisinopril [Zestril] 5 mg PO DAILY 11/16/14 Tiotropium [place] [Spiriva 18 MCG] 1 puff INHALATION QHS 11/16/14 cycloBENZAPRine HCl [Flexeril] 20 mg PO BREAKFAST 11/16/14 DiphenhydrAMINE [Benadryl] 50 mg PO BID 11/17/14 Diltiazem HCl [Diltiazem 24Hr ER (Cd)] 180 tab PO BID 04/23/20 Docusate Sodium 300 mg PO QHS 04/23/20 Levothyroxine Sodium 75 mcg PO DAILY 04/23/20 Metformin HCl 1,000 mg PO BIDCM 04/23/20 Multivitamin with Minerals [Multiple Vitamin] 1 tab PO DAILY 04/23/20 cycloBENZAPRine HCl [Flexeril] 10 mg PO QHS 04/23/20 Acetaminophen [Tylenol Tablet] 650 mg PO Q6H PRN PRN tablet 04/26/20 Pantoprazole Sodium [Protonix] 40 mg PO BID #60 tab 04/26/20 Sucralfate [Carafate] 1 gm PO 1HR_ACHS #120 tab 04/26/20 The following prescriptions were given: Sucralfate [Carafate] 1 gm PO 1HR_ACHS #120 tab Transmission Status: Pending to [facility] Pantoprazole Sodium [Protonix] 40 mg PO BID #60 tab Transmission Status: Pending to [facility] Primary Care Physician: Mt Gu Chi, MD [Primary Care Provider] - Please follow up with your Primary Care Physician in: 1-2 weeks Test Results: Test results from this visit will be discussed in further detail at your follow-up appointment, if applicable. Please Follow Up With: Ko Ness MD When: 2 weeks Please Follow Up With: Rolando Ruiz MD When: 1 week Proposed Discharge Date: 04/26/20
--- NOTE | 2020-04-26 11:34 | NURSING ---
PT EXPRESSED FRUSTRATION WITH MEDICATION BEING CHARTED REFUSED. PT STATED I NEVER REFUSED ANYTHING I JUST LET THEM KNOW WHAT MY DOCTOR TOLD ME BEFORE I CAME IN HERE. THIS NURSE SPOKE WITH PATIENT AT LENGTH ABOUT REASONS FOR MEDICATIONS AND WHY MEDICATION WAS MARKED REFUSED, WITH NOTE THAT PT NO LONGER TOOK. PT WAS OPEN TO CONVERSATION AND STATED UNDERSTANDING. [employer] MARKER MADE AWARE.
--- NOTE | 2020-04-26 13:34 | DS.PCM_ITS ---
<Deacon Leo - Last Filed: 04/26/20 13:34> Discharge Date and Diagnosis - Problem List Patient Problems: Active and Suspected Problems (Last Reviewed 04/23/20 @ 17:[address] Rolando Ruiz MD) Acute microcytic anemia (Acute) Date of Admission: 04/23/20 Date of Discharge: 04/26/20 - Primary Discharge Diagnosis Acute Problems: Active Problems (Last Reviewed 04/23/20 @ 17:[address] Rolando Ruiz MD) Acute blood loss anemia secondary to GI bleed, unclear etiology Multiple polyps on colonoscopy Nonbleeding gastric ulcer on EGD - Secondary Discharge Diagnosis Chronic Problems: Chronic Problems (Last Reviewed 04/23/20 @ 17:[address] Rolando Ruiz MD) Type 2 diabetes mellitus (Chronic) GERD (gastroesophageal reflux disease) (Chronic) Hyperlipidemia (Chronic) COPD (chronic obstructive pulmonary disease) (Chronic) Hypertension (Chronic) Hypothyroidism (Chronic) Fibromyalgia (Chronic) Hospital Course and Treatment Imaging Results: RAD/Chest 1 View (Portable) IMPRESSION: Normal x-ray examination of the chest. EGD: Impression: - Normal esophagus. No specimens collected. - Non-bleeding gastric ulcers with no stigmata of bleeding. Biopsied. - Normal examined duodenum. Recommendation: - Await pathology results. - Repeat upper endoscopy in 6 months to evaluate the response to therapy. - Return to my office in 1 week. - Continue present medications. Colonoscopy: Impressions : - Two 5 mm polyps in the transverse colon, removed with a jumbo cold forceps. Resected and retrieved. - One 12 mm polyp in the transverse colon, removed with a hot snare. Resected and retrieved. Clips were placed. Recommendations : - Repeat colonoscopy in 1 year for surveillance of multiple polyps. - Return to my office in 1 week. - Continue present medications. Consults: Sara - gen surgeon Operations: None Procedures: Colonoscopy, EGD Summary of Care Provided: Hospital course: The patient is a 69 year old F past medical history as above who presented to the emergency room with weakness and fatigue. Been progressively worsening for about a month. She was found to have hemoglobin of 6 and was admitted for acute on chronic anemia probably due to a GI bleed. She was placed on IV Protonix. General surgery was consulted. She was transfused with 3 units of packed red blood cells and had good response. She was taken for an EGD which did demonstrate a nonbleeding gastric ulcer, colonoscopy was also performed which demonstrated multiple polyps. Following the procedure her blood counts remained stable. She was transitioned to oral Protonix twice daily and Carafate. She will need to follow-up with a general surgeon in 1 week. She had some episodes of tachycardia while here but she had not been taking her Cardizem. We advised her to resume her scheduled Cardizem as previously prescribed-she thought that one of her doctors may have told her to stop taking it at some point recently- the details of this are not clear. She did declined to take it from the nursing staff several times while here, per the records. She was discharged home in stable condition. She also need to follow-up with her PCP in 1 to 2 weeks. 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 This patient was seen by Deacon Leo PA-C under the supervision of Doctor Gary. [] Patient Problems: Active and Suspected Problems (Last Reviewed 04/23/20 @ 17:[address] Rolando Ruiz MD) Acute microcytic anemia (Acute) - Physical Exam Vitals/I&O's: Vital Signs Temp Pulse Resp BP Pulse Ox 98.2 F 106 H 18 135/54 H 98 04/26/20 10:15 04/26/20 10:15 04/26/20 10:15 04/26/20 10:15 04/26/20 10:15 Oxygen Flow Rate (L/min) 2 Oxygen Delivery Method Room Air Weight: 174 lb 9.698 oz Body Mass Index (BMI) 28.1 Finger Stick Blood Glucose 156 Intake and Output for Last 24 Hours 04/24/20 04/25/20 04/26/20 23:59 23:59 23:59 Intake Total 5024.08 / 5024.08 3362.83 / 4082.83 1821.67 / 1821.67 Output Total 6900 / 6900 3 / 3 1500 / 1500 Balance -1875.92 / -1875.92 3359.83 / 4079.83 321.67 / 321.67 General: Alert, Oriented x3, Cooperative HEENT: Atraumatic, PERRLA, EOMI, Normocephalic Neck: Supple, No JVD, Negative Carotid Bruits Lungs: Clear to auscultation, Normal air movement Cardiovascular: Regular rate, No murmurs Abdomen: Bowel Sounds Present, Soft, Non Tender Extremities: No edema, Capillary Refill Less than 3 Seconds Skin: No rashes, No breakdown Musculoskeletal: No Tenderness to Palpation of Joints or Extremities Neurological: Cranial nerves II-XII grossly intact Psych/Mental Status: Normal Affect, Appropriate, Alert and oriented to time, place, person, mood and affect Microbiology Past 72 Hours 04/23/20 12:30 Stool Stool Occult Blood (MAGAN) - Final Laboratory Results 04/23/20 22:12: Transferrin 374 H 04/25/20 14:40: Hgb 8.6 L, Hct 29.1 L 04/25/20 17:42: POC Glucose 91 04/25/20 20:56: Hgb 8.7 L, Hct 30.2 L 04/25/20 21:50: POC Glucose 106 04/26/20 05:51: WBC 11.2 H, RBC 3.98 L, Hgb 8.9 L, Hct 31.1 L, MCV 78.1 L, MCH 22.4 L, MCHC 28.6 L, RDW Std Deviation 58.5 H, RDW Coeff of Curtis 20.9 H, Plt Count 335, MPV 9.1, Immature Gran % (Auto) 0.400, Neut % (Auto) 68.7, Lymph % (Auto) 20.3, [place] % (Auto) 5.4, Eos % (Auto) 4.7, Baso % (Auto) 0.5, Absolute Neuts (auto) 7.7, Absolute Lymphs (auto) 2.27, Nucleated RBC % 0, Differential Comment SCANNED, Polychromasia 1+ 04/26/20 05:51: Sodium 142, Potassium 3.9, Chloride 112 H, Carbon Dioxide 25.0, Anion Gap 5, BUN 6 L, Creatinine 0.75, Estim Creat Clear Calc 51.11, Est GFR (MDRD) Af Amer 100, Est GFR (MDRD) Non-Af 82, BUN/Creatinine Ratio 8.0 L, Glucose 157 H, Calcium 8.3 L, Total Bilirubin 0.40, AST 36, ALT 24, Alkaline Phosphatase 109, Total Protein 7.2, Albumin 3.1 L, Globulin 4.1, Albumin/Globulin Ratio 0.8 L 04/26/20 06:47: POC Glucose 144 H Discharge Diet: Low fat/ Low Cholesterol, 2000 mg Sodium Diet Discharge Activity: Return to Normal Activity Call your doctor if you observe: Dizziness, Fainting spells, - - black stools Home Medications: Medications to take at Discharge Atorvastatin Calcium [Lipitor] 80 mg PO QHS 11/16/14 Doxepin HCl [Sinequan] 30 mg PO QHS 11/16/14 Fluticasone/Salmeterol [Advair 100/50 Diskus] 1 puff INHALATION BID 11/16/14 Hydrochlorothiazide [Hctz] 25 mg PO BID 11/16/14 Lisinopril [Zestril] 5 mg PO DAILY 11/16/14 Tiotropium [place] [Spiriva 18 MCG] 1 puff INHALATION QHS 11/16/14 cycloBENZAPRine HCl [Flexeril] 20 mg PO BREAKFAST 11/16/14 DiphenhydrAMINE [Benadryl] 50 mg PO BID 11/17/14 Diltiazem HCl [Diltiazem 24Hr ER (Cd)] 180 tab PO BID 04/23/20 Docusate Sodium 300 mg PO QHS 04/23/20 Levothyroxine Sodium 75 mcg PO DAILY 04/23/20 Metformin HCl 1,000 mg PO BIDCM 04/23/20 Multivitamin with Minerals [Multiple Vitamin] 1 tab PO DAILY 04/23/20 cycloBENZAPRine HCl [Flexeril] 10 mg PO QHS 04/23/20 Acetaminophen [Tylenol Tablet] 650 mg PO Q6H PRN PRN tab 04/26/20 Pantoprazole Sodium [Protonix] 40 mg PO BID #60 tab 04/26/20 Sucralfate [Carafate] 1 gm PO 1HR_ACHS #120 tab 04/26/20 Following Prescriptions Were Given to Patient: Sucralfate [Carafate] 1 gm PO 1HR_ACHS #120 tab Transmission Status: Received by [facility] Pantoprazole Sodium [Protonix] 40 mg PO BID #60 tab Transmission Status: Received by [facility] Primary Care Physician: Mt Gu Chi, MD [Primary Care Provider] - Please follow up with your Primary Care Physician in: 1-2 weeks Please Follow Up With: Ko Ness MD When: 2 weeks Please Follow Up With: Rolando Ruiz MD When: 1 week Disposition: Home Minutes spent on discharge:: 35 Patient Condition:: Stable Medical Necessity - Tobacco Use Smoking Status: Former smoker Tobacco Use: Cigarettes Meaningful Use Info Meaningful Use Diagnoses (Choose all that apply): None applicable <Alicia Vega - Last Filed: 04/26/20 15:08> Discharge Date and Diagnosis - Primary Discharge Diagnosis Acute Problems: Active Problems (Last Reviewed 04/23/20 @ 17:[address] Rolando Ruiz MD) Acute microcytic anemia (Acute) - Secondary Discharge Diagnosis Chronic Problems: Chronic Problems (Last Reviewed 04/23/20 @ 17:[address] Rolando Ruiz MD) Type 2 diabetes mellitus (Chronic) GERD (gastroesophageal reflux disease) (Chronic) Hyperlipidemia (Chronic) COPD (chronic obstructive pulmonary disease) (Chronic) Hypertension (Chronic) Hypothyroidism (Chronic) Fibromyalgia (Chronic) Hospital Course and Treatment Summary of Care Provided: Patient seen by Deacon Leo PA-C under my supervision The patient is a 69 year old F with a past medical history as outlined was admitted through the ED with a complaint of weakness and fatigue. Symptoms have been worsening for about a month prior to admission. On admission, patient was found to have a hemoglobin of 6 and was admitted and managed for acute on chronic anemia with suspicion for GI bleed. She was started on IV PPI general surgery was consulted. She was also transfused with 3 units of packed red blood cells. She had an EGD which showed a nonbleeding gastric ulcer. Colonoscopy done showed multiple polyps. She had removal of 2 5 mm polyps in the transverse colon and one 12 mm polyp in the transverse colon she was transitioned to oral Protonix and Carafate remained stable. Patient was also noted to be tachycardic. It turned out patient did have a history of A. fib but had not been compliant with her Cardizem whilst on admission. She however claimed that she has been compliant with her Cardizem at home. Patient started compliant with her Cardizem during admission after counseling. On the day of discharge, patient was informed that it would be advisable for her to stay 1 more day for heart rate to be monitored for improvement whilst on the Cardizem. Patient however adamantly refused and insisted on being discharged home as she said at home her heart rate was always in the 110s. Patient was therefore discharged home on 04/26/2020. She is to follow-up with Dr. Ness and follow-up with her primary care doctor and general surgeon. Patient seen and examined prior to discharge. She had no complaints and felt well. Review of systems was otherwise negative. Labs and vitals reviewed. Home meds reviewed adn reconciled. O/E: Vital Signs Temp Pulse Resp BP Pulse Ox 98.2 F 106 H 18 135/54 H 98 04/26/20 10:15 04/26/20 10:15 04/26/20 10:15 04/26/20 10:15 04/26/20 10:15 [] General: Alert, Oriented x3, Cooperative HEENT: Atraumatic, PERRLA, EOMI, Normocephalic Neck: Supple, No JVD, Negative Carotid Bruits Lungs: Clear to auscultation, Normal air movement Cardiovascular: irregular rate; afib, mild tachycardia Abdomen: Bowel Sounds Present, Soft, Non Tender Extremities: No edema, Capillary Refill Less than 3 Seconds Skin: No rashes, No breakdown Musculoskeletal: No Tenderness to Palpation of Joints or Extremities Neurological: Cranial nerves II-XII grossly intact Psych/Mental Status: Normal Affect, Appropriate, Alert and oriented to time, place, person, mood and affect Plan is for discharge home today. To be compliant with her Cardizem 180 mg twice daily. Patient was not started on a blood thinner as she had just had colonoscopy with removal of polyps and was at increased risk of bleeding. She is to follow-up with cardiology for decision to be made about whether she should be started on anticoagulation or not if she remains in A. fib. She is follow- up with her primary care doctor and general surgeon. Rest as per Deacon Leo PA-C's notes which I reviewed and endorsed. - Physical Exam Vitals/I&O's: Vital Signs Temp Pulse Resp BP Pulse Ox 98.2 F 106 H 18 135/54 H 98 04/26/20 10:15 04/26/20 10:15 04/26/20 10:15 04/26/20 10:15 04/26/20 10:15 Oxygen Flow Rate (L/min) 2 Oxygen Delivery Method Room Air Weight: 174 lb 9.698 oz Body Mass Index (BMI) 28.1 Finger Stick Blood Glucose 156 Intake and Output for Last 24 Hours 04/24/20 04/25/20 04/26/20 23:59 23:59 23:59 Intake Total 5024.08 / 5024.08 3362.83 / 4082.83 1821.67 / 1821.67 Output Total 6900 / 6900 1500 / 1500 Balance -1875.92 / -1875.92 3359.83 / 4079.83 321.67 / 321.67 Microbiology Past 72 Hours 04/23/20 12:30 Stool Stool Occult Blood (MAGAN) - Final Laboratory Results 04/23/20 22:12: Transferrin 374 H 04/25/20 17:42: POC Glucose 91 04/25/20 20:56: Hgb 8.7 L, Hct 30.2 L 04/25/20 21:50: POC Glucose 106 04/26/20 05:51: WBC 11.2 H, RBC 3.98 L, Hgb 8.9 L, Hct 31.1 L, MCV 78.1 L, MCH 22.4 L, MCHC 28.6 L, RDW Std Deviation 58.5 H, RDW Coeff of Curtis 20.9 H, Plt Count 335, MPV 9.1, Immature Gran % (Auto) 0.400, Neut % (Auto) 68.7, Lymph % (Auto) 20.3, [place] % (Auto) 5.4, Eos % (Auto) 4.7, Baso % (Auto) 0.5, Absolute Neuts (auto) 7.7, Absolute Lymphs (auto) 2.27, Nucleated RBC % 0, Differential Comment SCANNED, Polychromasia 1+ 04/26/20 05:51: Sodium 142, Potassium 3.9, Chloride 112 H, Carbon Dioxide 25.0, Anion Gap 5, BUN 6 L, Creatinine 0.75, Estim Creat Clear Calc 51.11, Est GFR (MDRD) Af Amer 100, Est GFR (MDRD) Non-Af 82, BUN/Creatinine Ratio 8.0 L, Glucose 157 H, Calcium 8.3 L, Total Bilirubin 0.40, AST 36, ALT 24, Alkaline Phosphatase 109, Total Protein 7.2, Albumin 3.1 L, Globulin 4.1, Albumin/Globulin Ratio 0.8 L 04/26/20 06:47: POC Glucose 144 H Inpatient E&M: 67941 Disch Hosp
--- NOTE | 2020-04-27 15:36 | CASEMGMT ---
CRYSTAL SCALES Discharge F/U Phone Call LACE: 11 Strata: 3 Discharge date: 04/26/2020 Call date: 04/27/2020 Call time: [id number] Admission dx: Acute sx anemia Pt states is doing 'fine' since discharge. Pt states she has been checking her BP and heart rate at home and plans to take records to f/u appt. Pt states has not scheduled f/u appts 'But I will.' Pt states 'all the nurses were great.' Pt states no further questions/concerns/needs at this time. S[place]en CRYSTAL SCALES
== END 2020-04-26 11:36 | disposition home or self-care (01) | DRG 811 ==
LOC: ED 12:29 → MS3 14:28 → PCU 14:34
PROVIDERS: Anesthesiology; Internal Medicine; Surgery; Admitting Provider Hospitalist; Emergency Provider Physician Assistant; PCP Family Medicine Geriatric Medicine; Visit Provider Student in an Organized Health Care Education/Training Program
PROC: 0DJD8ZZ Inspection of Lower Intestinal Tract, Via Natural or Artificial Opening Endoscopic (ICD-10-PCS; CPT 45378; principal; 2020-04-25 08:30)
DX: D62 Acute posthemorrhagic anemia (principal); K25.4 Chronic or unspecified gastric ulcer with hemorrhage; D12.3 Benign neoplasm of transverse colon; R00.0 Tachycardia, unspecified; J44.9 Chronic obstructive pulmonary disease, unspecified; I48.91 Unspecified atrial fibrillation; E11.9 Type 2 diabetes mellitus without complications; I10 Essential (primary) hypertension; E03.9 Hypothyroidism, unspecified; E78.5 Hyperlipidemia, unspecified; M79.7 Fibromyalgia; K21.9 Gastro-esophageal reflux disease without esophagitis; Z91.14 Patient's other noncompliance with medication regimen; Z78.0 Asymptomatic menopausal state; Z79.82 Long term (current) use of aspirin; Z79.84 Long term (current) use of oral hypoglycemic drugs; Z79.890 Hormone replacement therapy; Z79.899 Other long term (current) drug therapy; Z87.891 Personal history of nicotine dependence
CPT/HCPCS: 36415; 71045; 74019; 80048; 80053; 82274; 82550; 82728; 82962; 83036; 83540; 83550; 83874; 84443; 84466; 84484; 85014; 85018; 85025; 85610; 86850; 86900; 86901; 86920; 86922; 87635; 88305; 88342; 93005; 94640; 99251; 99281; 99284; J7030; J7040; P9016; A4216; G0463; J1610; U0003

== ENCOUNTER → 2020-05-03 16:11 | Outpatient (CLI) | payer MEDICARE, SELFPAY ==
[2020-04-24 22:34] VITALS: BMI 28.1
[2020-05-03 17:57] LABS: Absolute Lymphocyte Count 2.74 X10^3/uL (0.83-4.51); Absolute Neutrophil Count 8.8 X10^3/uL (2.0-7.7); Basophil# 0.14 X10^3/uL; Basophil% 1.1 % (0-1); Eosinophil# 0.41 X10^3/uL; Eosinophils% 3.1 % (0-5); Hematocrit 34.2 % (37-47); Hemoglobin 9.6 g/dL (12.0-15.0); Lymphocyte # 2.74 X10^3/ul (4.0); Mean Corp Hgb Conc 28.1 g/dL (32-36); Mean Corpuscular Hgb 21.9 pg (27.0-32.0); Mean Corpuscular Volume 77.9 fL (81-99); Mean Platelet Vol. 10.5 fl (6.2-12.0); Monocyte# 0.91 X10^3/uL; NRBC Flagged by Analyzer 0 % (0-5); Neutrophil # 8.82 X10^3/uL (2.7-7.7); Neutrophil % 67.4 % (47-70); POSITIVE MORPHOLOGY YES; Platelet Count 477 K/mm3 (150-450); RBC Distribution Width SD 58.7 fl (35.1-43.9); Red Blood Count 4.39 M/mm3 (4.2-5.4); White Blood Count 13.1 K/mm3 (4.4-11.0)
[2020-05-03 18:23] LABS: Differential Indicated SCAN CRITERIA MET
[2020-05-03 21:59] LABS: Microcytosis 1+; Platelet Estimate SLT INC (ADEQ)
[2020-05-03 22:00] LABS: Anisocytosis 1+; Hypochromasia 2+; Polychromasia RARE
== END ==
PROVIDERS: PCP Family Medicine Geriatric Medicine; Visit Provider Family Medicine Geriatric Medicine
DX: D64.9 Anemia, unspecified (principal)
CPT/HCPCS: 36415; 85025

== ENCOUNTER → 2020-05-26 11:00 | Outpatient (CLI) | payer MEDICARE, SELFPAY ==
[2020-05-26 10:11] VITALS: BMI 28.2
[2020-05-26 12:05] LABS: Absolute Lymphocyte Count 2.29 X10^3/uL (0.83-4.51); Absolute Neutrophil Count 9.4 X10^3/uL (2.0-7.7); Basophil# 0.11 X10^3/uL; Basophil% 0.8 % (0-1); Eosinophil# 0.42 X10^3/uL; Eosinophils% 3.2 % (0-5); Hematocrit 35.2 % (37-47); Lymphocyte # 2.29 X10^3/ul (4.0); Lymphocyte % 17.5 % (19-41); Mean Corp Hgb Conc 28.4 g/dL (32-36); Mean Corpuscular Hgb 21.8 pg (27.0-32.0); Mean Corpuscular Volume 76.7 fL (81-99); Mean Platelet Vol. 10.6 fl (6.2-12.0); Monocyte# 0.79 X10^3/uL; Monocyte% 6.1 % (0-10); NRBC Flagged by Analyzer 0 % (0-5); Neutrophil # 9.38 X10^3/uL (2.7-7.7); Neutrophil % 71.9 % (47-70); POSITIVE MORPHOLOGY YES; Platelet Count 368 K/mm3 (150-450); RBC Distribution Width CV 22.3 % (11.6-14.6); RBC Distribution Width SD 59.9 fl (35.1-43.9); Red Blood Count 4.59 M/mm3 (4.2-5.4); White Blood Count 13.1 K/mm3 (4.4-11.0)
[2020-05-26 12:06] LABS: Differential Indicated SCAN CRITERIA MET
[2020-05-26 12:23] LABS: Vitamin D,25 Hydroxy 37.2 ng/mL
[2020-05-26 12:35] LABS: ALB/GLOB Ratio 0.8 RATIO (0.9-2.4); AST(SGOT) 35 U/L (15-37); Alanine Aminotransfer ALT/SGPT 28 U/L (13-56); Albumin, Serum 3.8 g/dL (3.2-5.0); Alkaline Phosphatase 113 U/L (45-117); Anion Gap 6 (5-15); BUN 11 mg/dL (7-18); BUN/Creat Ratio 13.5 RATIO (10-20); Chloride 105 mmol/L (98-107); Creatinine, Serum 0.82 mg/dL (0.55-1.02); EST Glomerular Filtration Rate 74 mL/min (>60); Est Glom Filt Rate - Afr Amer 90 mL/min (>60); Globulin 4.6 g/dL (2.2-4.2); Glucose 106 mg/dL (74-106); Potassium 4.6 mmol/L (3.5-5.1); Protein, Total 8.4 g/dL (6.4-8.2); Sodium Level 139 mmol/L (136-145); Thyroid Stim Hormone (TSH) 2.99 uIU/mL (0.358-3.74)
[2020-05-26 12:44] LABS: Anisocytosis 3+; Differential Comment SCANNED; Hypochromasia 3+
== END ==
PROVIDERS: PCP Family Medicine Geriatric Medicine; Visit Provider Family Medicine Geriatric Medicine
DX: E11.9 Type 2 diabetes mellitus without complications (principal); E55.9 Vitamin D deficiency, unspecified; I10 Essential (primary) hypertension
CPT/HCPCS: 36415; 80053; 82306; 84443; 85025

== ENCOUNTER → 2020-06-01 10:45 | Outpatient (CLI) | payer MEDICARE, SELFPAY ==
[2020-05-26 10:11] VITALS: BMI 28.2
== END ==
PROVIDERS: PCP Family Medicine Geriatric Medicine; Referring Provider Internal Medicine Cardiovascular Disease; Visit Provider Internal Medicine Cardiovascular Disease
DX: R00.0 Tachycardia, unspecified (principal); R00.2 Palpitations; I48.0 Paroxysmal atrial fibrillation; I10 Essential (primary) hypertension
CPT/HCPCS: 93225; 93226

== ENCOUNTER → 2020-06-02 13:19 | Outpatient (CLI) | payer MEDICARE, SELFPAY ==
[2020-05-26 10:11] VITALS: BMI 28.2
--- NOTE | 2020-06-02 13:22 | ECHOCS_ITS ---
Reason For Study: Arrhythmia Procedure This was a 2D Doppler, Color Flow transthoracic echocardiogram. The study was technically difficult. Contrast injection was performed. Exam performed in department. Left Ventricle Normal LV size. Left ventricular systolic function is normal. The estimated ejection fraction is 65 %. No regional wall motion abnormalities noted. Right Ventricle Normal RV size. Normal systolic function. Atria Normal left atrium. Normal right atrium. Patent foramen ovale. Mitral Valve Normal mitral valve. Tricuspid Valve Normal tricuspid valve. Pulmonic Valve Normal pulmonic valve. Great Vessels Normal aortic root. The pulmonary artery is normal size. Normal inferior vena cava. Pericardium/Pleural No pericardial effusion. Medication 22 gauge I.V. with prn adaptor inserted into right arm. Diluted definity 3ml given slow IV push to enhance endocardial definition. Performed a rapid injection of agitated mix of 9 cc saline and 1cc air to assess for atrial septal defect. MMode/2D Measurements & Calculations LVIDd: 3.8 cm IVSd: 1.6 cm LA dimension: 3.3 cm LVIDs: 2.5 cm LVPWd: 0.98 cm FS: 32.4 % LAV(MOD-bp): 49.2 ml LA A4 area: 18.3 cm2 RA A4 area: 11.6 cm2 LAV(MOD-bp) Indexed: 26.0 ml/m2 LAV(MOD-sp2): 37.1 ml LAV(MOD-sp4): 49.5 ml Time Measurements MV dec time: 0.12 sec Doppler Measurements & Calculations MV E max farooq: 34.3 cm/sec Lat Peak E' Farooq: 6.1 cm/sec Med Peak E' Farooq: 4.3 cm/sec MV A max farooq: 103.9 cm/sec E/E' lat: 5.7 E/E' med: 8.1 MV E/A: 0.33 MV V2 max: 123.3 cm/sec MV P1/2t max farooq: 59.4 cm/sec Ao V2 max: 122.3 cm/sec MV max P.2 mmHg MV P1/2t: 52.8 msec Ao max P.0 mmHg MV V2 mean: 63.7 cm/sec MV dec slope: 329.6 cm/sec2 MV mean P.0 mmHg MVA(P1/2t): 4.2 cm2 MV V2 VTI: 22.4 cm LV V1 max: 99.6 cm/sec PA V2 max: 84.4 cm/sec LV V1 max P.0 mmHg Interpretation Summary Normal LV size. Left ventricular systolic function is normal. The estimated ejection fraction is 65 %. Patent foramen ovale. Ordering Physician: Ko Ness Referring Physician: Mt Gu Chi Performed By: Jone Schmid RCS
== END ==
PROVIDERS: PCP Family Medicine Geriatric Medicine; Referring Provider Internal Medicine Cardiovascular Disease; Visit Provider Internal Medicine Cardiovascular Disease
DX: I48.0 Paroxysmal atrial fibrillation (principal)
CPT/HCPCS: 93306; Q9957; A4216; C8929

== ENCOUNTER → 2020-06-07 13:05 | Outpatient (CLI) | payer MEDICARE, SELFPAY ==
[2020-05-26 10:11] VITALS: BMI 28.2
[2020-06-07 18:00] LABS: Hematocrit 35.3 % (37-47); Hemoglobin 9.8 g/dL (12.0-15.0)
== END ==
PROVIDERS: PCP Family Medicine Geriatric Medicine; Visit Provider Family Medicine Geriatric Medicine
DX: D64.9 Anemia, unspecified (principal)
CPT/HCPCS: 36415; 85014; 85018

== ENCOUNTER 2020-06-14 10:09 | Day surgery (SDC) | payer MEDICARE, SELFPAY ==
[2020-06-10 15:52] VITALS: BMI 28.1
--- NOTE | 2020-06-14 | GASB_PTH ---
PATIENT: VIRAL RODGERS LOC: EN U#:[id number] AGE/SX: 69/F ROOM: RE06/14/[address]: Dr. Rolando Ruiz MD : [id number] BED: DIS: 06/14/2020 SPEC #: [id number] RECD: 06/14/20 12:28 STATUS: SHANKAR REDiane #: [id number] BETTY: 06/14/20 00:[address]: Rolando Ruiz DEPT: SURGICAL PATHOLOGY RECD BY: Bebo Gaona ENTERED: 06/14/20 12:28 SP TYPE: Gastric Bx OTHR DR: Dr. Mt Gu MD Tissues: Gastric mucous membrane Procedures: Surgery Specimen Level IV HEADER OPERATION: [place] [place] DIAGNOSIS: History of gastric ulcer TISSUE SUBMITTED: Antral biopsy for H. pylori and pathology MICROSCOPIC DIAGNOSIS Gastric antrum, biopsy: Chronic gastritis. See comment. AM:gwen 06/15/20 COMMENT The results of immunohistochemistry for Helicobacter pylori will be reported separately ([id number]). MICROSCOPIC DESCRIPTION Slides are reviewed. GROSS DESCRIPTION Received in fixative is one container labeled with the patient's name and designated antral biopsy. The specimen consists of one irregular fragment of light wilkinson soft tissue that measures 0.6 x 0.2 x 0.1 cm. The specimen is totally submitted in one cassette. / AM:gwen 06/14/20 TC:3 CPT: 25285
--- NOTE | 2020-06-14 07:05 | HP_ITS ---
Intake Intake Visit Reasons: ONE MONTH F/U HOSPITALATION Chief Complaint: GI bleed, anemia [employer] Required: No Is patient in pain?: No Allergies hydroxyzine HCl [From Vistaril] Allergy (Verified 06/10/20 13:37) Hives hydroxyzine pamoate [From Vistaril] Allergy (Verified 06/10/20 13:37) Hives Penicillins [PCN] Allergy (Verified 06/10/20 13:37) Hives Sulfa (Sulfonamide Antibiotics) Allergy (Verified 06/10/20 13:37) Hives Medications Atorvastatin Calcium [Lipitor] 80 mg PO QHS 11/16/14 [History Confirmed 06/10/20] Fluticasone/Salmeterol [Advair 100/50 Diskus] 1 puff INHALATION BID 11/16/14 [History Confirmed 06/10/20] Tiotropium [place] [Spiriva 18 MCG] 1 puff INHALATION QHS 11/16/14 [History Confirmed 06/10/20] cycloBENZAPRine HCl [Flexeril] 20 mg PO BREAKFAST 11/16/14 [History Confirmed 06/10/20] Diltiazem HCl [Diltiazem 24Hr ER (Cd)] 180 tab PO BID 04/23/20 [History Confirmed 06/10/20] Levothyroxine Sodium 75 mcg PO DAILY 04/23/20 [History Confirmed 06/10/20] Metformin HCl 1,000 mg PO BIDCM 04/23/20 [History Confirmed 06/10/20] Multivitamin with Minerals [Multiple Vitamin] 1 tab PO DAILY 04/23/20 [History Confirmed 06/10/20] cycloBENZAPRine HCl [Flexeril] 10 mg PO QHS 04/23/20 [History Confirmed 06/10/20] Acetaminophen [Tylenol Tablet] 650 mg PO Q6H PRN PRN tab 04/26/20 [Rx Confirmed 06/10/20] Pantoprazole Sodium [Protonix] 40 mg PO BID #60 tab 04/26/20 [Rx Confirmed 06/10/20] Sucralfate [Carafate] 1 gm PO 1HR_ACHS #120 tab 04/26/20 [Rx Confirmed 06/10/20] albuterol sulfate 90 mcg/actuation aerosol inhaler 2 puff INHALATION Q6H PRN 05/26/20 [History Confirmed 06/10/20] hydrochlorothiazide 25 mg tablet 25 mg PO DAILY tab 05/26/20 [History Confirmed 06/10/20] metoprolol succinate 50 mg tablet,extended release 24 hr 50 mg PO DAILY #90 tab 05/26/20 [Rx Confirmed 06/10/20] polysaccharide iron complex 150 mg iron capsule 150 mg PO DAILY cap 05/26/20 [History Confirmed 06/10/20] [facility] Medical History Tachycardia (Chronic) Paroxysmal atrial fibrillation (Suspected) Essential hypertension (Chronic) Hyperlipidemia (Chronic) Arthritis (Chronic) COPD (chronic obstructive pulmonary disease) (Chronic) Cervical pain (neck) (Chronic) Colon polyps (Chronic) Fibromyalgia (Chronic) GERD (gastroesophageal reflux disease) (Chronic) Hypothyroidism (Chronic) Microcytic anemia (Chronic) Osteoarthritis (Chronic) Type 2 diabetes mellitus (Chronic) Vascular disease (Chronic) Acute gastric ulcer with hemorrhage (Resolved) Acute microcytic anemia (Inactive) Surgical History S/P insertion of spinal cord stimulator (Chronic) H/O hernia repair (Resolved) History of foot surgery (Resolved) History of left heart catheterization (Resolved 2009) Previous back surgery (Resolved) HPI HPI Surgical H&P: Yes HPI: VIRAL RODGERS, is a 69 F who presents to the office today for Follow-up from hospitalization where I did an EGD and found that she had a nonbleeding gastric ulcer. She has been on appropriate ulcer medications now and she is just now started to notice that her stools are turning brown and are no longer black. She has completed her course of Carafate therapy. In addition I did a colonoscopy on her where she had numerous polyps and my plan was to do a repeat colonoscopy at 1 years time. Is now more than 6 weeks from her upper and I think repeating an upper would be appropriate for her to monitor her healing of the gastric ulcers. ROS General General: No weight change, appetite, fatigue, colon cancer, breast cancer or weakness HEENT HEENT: No difficulty swallowing, eye injury, eye surgery, swollen glands or hoarseness Endo Endocrine: Yes diabetes mellitus; no thyroid disease, thyroid cancer, Hair loss, heat intolerance or cold intolerance Skin Skin: No rash or changing moles Breast Breast: No left breast lump, right breast lump, nipple discharge, breast pain, abnormal mammogram, abnormal US or breast enlargement Musc Musculoskeletal: Yes arthritis; no back problems, rheumatoid arthritis, gout or joint pain Cardio Cardiovascular: Yes heart disease and high blood pressure; no murmur, pacemaker, atrial fibrillation, heart attack, heart stent, palpitations, shortness of breat with exertion or chest pain Psych Psychiatric: No depression, anxiety or hearing voices Resp Respiratory: Yes shortness of breath, No sleep apnea, No cough, No COPD, Yes asthma, No emphysema, No wheezing Fernando Hematologic: No blood thinners, No blood disorders, No bleeding, Yes anemia, No blood clots Neuro Neurologic: No system reviewed and no additional complaints, except as docu, No as per HPI, No abnormal walking, No abnormal hearing, No abnormal movements, No abnormal speech, No behavioral changes, No burning sensations, No confusion, No seizure-like activity, No unsteadiness, No dizziness, No localized weakness, No frequent falls, No headache(s), No lack of coordination, No loss of vision, No memory loss, No numbness, No other visual disturbances, No radiating pain, No restless legs, No sensory deficit, No fainting, No tingling, No tremor(s), No weakness, No other Exam Const General: no acute distress, well developed, well hydrated Orientation: oriented to person, oriented to place, oriented to time [facility] Head: normocephalic, atraumatic Ears: external ears normal Mouth: moist mucous membranes Eyes Sclera: sclerae normal Pupils: normal by confrontation Neck Neck: no lymphadenopathy noted Neck mass: No Thyroid: thyroid normal, symmetrical Chest Chest palpation & inspection: normal inspection of the chest Breast Palpation: No nipple discharge Resp Effort & Inspection: normal respiratory effort Auscultation: clear to auscultation bilaterally Percussion: percussion normal Cardio Rate: regular rate Rhythm: regular rhythm Heart Sounds: no murmurs GI Inspection: obesity Palpation: soft, no hepatosplenomegaly, no masses, nontender Rectal Exam: other Other: Rectal exam deferred. Extrem General: normal to inspection, no clubbing, cyanosis or edema Assessment & Plan Problems 1. Acute gastric ulcer with hemorrhage K25.0 Plan I have discussed the above with the patient. I have offered the patient esophagogastroduodenoscopy for evaluation. I have explained the risks/benefits of the procedure and described the procedure. I have discussed the risks with the patient, including but not limited to: infection, bleeding, perforation of the GI tract requiring emergency surgery, inability to complete the procedure, injury to any internal organs, complications of anesthesia, etc. - the patient understands and agrees to proceed. I have answered all the patient's questions to the patient's satisfaction and the patient has no further questions. The patient has been given instructions for the colon cleansing preparation. Coding Level of Care Code Off vis,est,level 3 Diagnoses Acute gastric ulcer with hemorrhage K25.0 ??Gastric ulcer chronicity: acute ??Gastric ulcer complication status: with hemorrhage COVID (Procedure Consent) Procedure Criteria Procedure Criteria: Yes Elective The surgeon/proceduralist and patient have discussed in detail the risk of exposure to and/or potential harm posed by the COVID-19 virus with having a surgery/procedure at this time versus the risk of? delaying the surgery/procedure. It is not possible to know either the risk of delaying the surgery or procedure or chance of getting an infection with perfect accuracy, but a joint decision was made between the patient and the surgeon/proceduralist ?to proceed at this time with the scheduled surgery/procedure as indicated on the consent form. I have re-examined the patient. There are no clinical changes since date of exam.
[2020-06-14 10:34] VITALS: BP 120/61; PULSE 99; RESP 18; TEMP 36.1; O2SAT 98; BMI 28.3
[2020-06-14] MEDS: Lactated Ringers 1,000 ML 100 ML IV (10:45)
--- NOTE | 2020-06-14 11:15 | IMM_PTH ---
PATIENT: VIRAL RODGERS LOC: EN U#:[id number] AGE/SX: 69/F ROOM: RE06/14/[address]: Dr. Rolando Ruiz MD : 1950 BED: DIS: 06/14/2020 SPEC #: [id number] RECD: 06/14/20 14:28 STATUS: SHANKAR REQ #: [id number] BETTY: 06/14/20 11:[address]: Rolando Ruiz DEPT: IMMUNOHISTOCHEMISTRY RECD BY: Pam Potter ENTERED: 06/14/20 14:29 SP TYPE: IMMUNO OTHR DR: Dr. Mt Gu MD Tissues: Stomach, NOS Procedures: H Pylori (initial) PHYSICIAN & INSTITUTION [place] [id number] SPECIMEN INFORMATION: Tissue Source: Antral biopsy Clinical Info: Gastric ulcer Specimen Number: [id number] CPT code: 30116 METHODOLOGY: Deparaffinized sections of prefer/formalin-fixed tissue or PAP/DQ stained slides are incubated with monoclonal/polyclonal antibodies/oligonucleotide probes. Localization is made via biotin free immunoperoxidase method. Appropriate controls are performed and reacted as expected. Results on target cell population are indicated in the following table: RESULTS: ANTIBODY / CLONE RESULT H Pylori (polyclonal) negative These tests were developed and their performance characteristics determined by [facility]. They may not have been cleared or approved by the U.S. Food and Drug Administration. The FDA has determined that such clearance or approval is not necessary. INTERPRETATION: Antral biopsy: Negative for Helicobacter pylori organisms. AM:gwen 06/15/20
--- NOTE | 2020-06-14 11:22 | OP.CCLET_ITS ---
06/14/2020 Mt Gu MD [address] [place] [address] Re : Upper GI endoscopy procedure for Paula Burkscosmo Dear Dr. Gu This procedure was performed on Sunday, June 14, 2020. My impressions and recommendations are as follows: Impressions : - Normal esophagus. No specimens collected. - Gastritis. Biopsied. - Normal examined duodenum. Recommendations : - Await pathology results. - Repeat upper endoscopy at appointment to be scheduled for surveillance. - Return to primary care physician at appointment to be scheduled. - Continue present medications. My findings are described in the full procedure note, which is enclosed. If I can be of further assistance, please feel free to contact me at Doctor phone number(s): , Fax: [phone], Work: . Sincerely, MD Rolando Nielsen MD 06/14/2020 11:22:02 AM This report has been signed electronically.
--- NOTE | 2020-06-14 11:22 | OP.EGD_ITS ---
Patient Name: Paula Hough Procedure Date: 06/14/2020 11:07 AM Date of : 1950 Age: 69 Procedure: Upper GI endoscopy Indications: Follow-up of acute gastric ulcer with hemorrhage Providers: Rolando Ruiz MD Referring MD: Mt Gu MD Medicines: See the Anesthesia note for documentation of the administered medications Patient Profile: This is a 69 year old female. Refer to note in patient chart for documentation of history and physical. Complications: No immediate complications. Procedure: Pre-Anesthesia Assessment: - Prior to the procedure, a History and Physical was performed, and patient medications and allergies were reviewed. The patient's tolerance of previous anesthesia was also reviewed. The risks and benefits of the procedure and the sedation options and risks were discussed with the patient. All questions were answered, and informed consent was obtained. Prior Anticoagulants: The patient has taken no previous anticoagulant or antiplatelet agents. ASA Grade Assessment: II - A patient with mild systemic disease. After reviewing the risks and benefits, the patient was deemed in satisfactory condition to undergo the procedure. After obtaining informed consent, the endoscope was passed under direct vision. Throughout the procedure, the patient's blood pressure, pulse, and oxygen saturations were monitored continuously. The Endoscope was introduced through the mouth, and advanced to the second part of duodenum. The upper GI endoscopy was accomplished without difficulty. The patient tolerated the procedure well. Scope In: 11:15:01 AM Scope Out: 11:17:33 AM Total Procedure Duration Time 0 hours 2 minutes 32 seconds Findings: The examined esophagus was normal. No biopsies or other specimens were collected for this exam. Localized mild inflammation characterized by erythema, friability and granularity was found in the prepyloric region of the stomach. Biopsies were taken with a cold forceps for Helicobacter pylori testing. The examined duodenum was normal. Impression: - Normal esophagus. No specimens collected. - Gastritis. Biopsied. - Normal examined duodenum. Recommendation: - Await pathology results. - Repeat upper endoscopy at appointment to be scheduled for surveillance. - Return to primary care physician at appointment to be scheduled. - Continue present medications. Procedure Code(s): --- Professional --- 97101, Esophagogastroduodenoscopy, flexible, transoral; with biopsy, single or multiple Diagnosis Code(s): --- Professional --- K29.70, Gastritis, unspecified, without bleeding K25.0, Acute gastric ulcer with hemorrhage CPT copyright 2017 [employer]. All rights reserved. The codes documented in this report are preliminary and upon information coder review may be revised to meet current compliance requirements. MD Rolando Nielsen MD 06/14/2020 11:22:02 AM This report has been signed electronically. Number of Addenda: 0 Note Initiated On: 06/14/2020 11:07 AM
[2020-06-14 11:24] VITALS: BP 120/61; BP 131/60; PULSE 95; RESP 18; TEMP 35.8; O2SAT 92
[2020-06-14 11:30] VITALS: BP 120/61; BP 135/61; PULSE 93; RESP 16; O2SAT 93
[2020-06-14 11:31] LABS: Bedside Glucose 135 mg/dL (70-110)
[2020-06-14 11:35] VITALS: BP 105/56; BP 120/61; PULSE 92; RESP 16; O2SAT 97
[2020-06-14 11:41] VITALS: BP 120/61; BP 125/63; PULSE 94; RESP 16; TEMP 36.8; O2SAT 95
[2020-06-14 12:25] VITALS: BP 120/61
== END 2020-06-14 12:38 | disposition home or self-care (01) ==
LOC: EN 10:11 → AC 10:11
PROVIDERS: PCP Family Medicine Geriatric Medicine; Referring Provider Family Medicine Geriatric Medicine; Visit Provider Surgery
PROC: 0DJ08ZZ Inspection of Upper Intestinal Tract, Via Natural or Artificial Opening Endoscopic (ICD-10-PCS; CPT 43235; principal; 2020-06-14 11:10)
DX: K25.0 Acute gastric ulcer with hemorrhage (principal); K29.50 Unspecified chronic gastritis without bleeding; Z20.828 Contact with and (suspected) exposure to other viral communicable diseases; J44.9 Chronic obstructive pulmonary disease, unspecified; E11.9 Type 2 diabetes mellitus without complications; I10 Essential (primary) hypertension; D50.9 Iron deficiency anemia, unspecified; E03.9 Hypothyroidism, unspecified; E78.5 Hyperlipidemia, unspecified; M79.7 Fibromyalgia; M19.90 Unspecified osteoarthritis, unspecified site; K21.9 Gastro-esophageal reflux disease without esophagitis; Z79.84 Long term (current) use of oral hypoglycemic drugs; Z79.51 Long term (current) use of inhaled steroids; Z79.899 Other long term (current) drug therapy; Z87.891 Personal history of nicotine dependence; Z86.010 Personal history of colon polyps; Z87.11 Personal history of peptic ulcer disease
CPT/HCPCS: 43239; 82962; 87426; 88305; 88342; C9803; J7120; J2405

== ENCOUNTER → 2020-07-07 13:18 | Outpatient (CLI) | payer MEDICARE, SELFPAY ==
[2018-07-16 11:14] VITALS: BMI 34.8
[2020-06-14 10:34] VITALS: BMI 28.3
--- NOTE | 2020-07-07 13:20 | CT_ITS ---
STUDY: LOW DOSE CT LUNG CANCER SCREENING REASON FOR EXAM: Female, 69 years old. LUNG CANCER SCREENING. /2 PPD x 50 years.COPD RADIATION DOSAGE (If Supplied By Facility): CTDIvol = ( 3.02 ) mGy, DLP = ( 95.53 ) mGycm TECHNIQUE: No contrast was administered. Low dose technique was utilized (average mAS-38 and kVp 120). 1.25 mm axial source images with a slice interval of 1.25-mm were reconstructed in lung windows. 2.5 mm axial source images with a slice interval of 2.5-mm were reconstructed in lung windows. 5.0 mm axial source images with a slice interval of 5.0-mm were reconstructed in soft tissue windows. Nodule measured using lung windows on PACS and/or independent workstation with automated measurement of minimum and maximum diameter. Nodule measurement reported as average diameter rounded to the nearest whole number. Growth is defined as an increase ins size of greater than 1.5 mm. COMPARISON: 07/07/2019 NODULES: No noncalcified pulmonary nodules. Stable granuloma in the right lower lobe. Emphysema: None significant Endobronchial lesion: None Aorta: Thoracic atherosclerosis without obvious aneurysm. Coronary arteries: Moderate coronary artery atherosclerosis. Heart: Normal heart size stable mitral valve calcifications. Pulmonary artery: Unremarkable. Unopacified technique. Mediastinal nodes: There are calcified mediastinal and right hilar lymph nodes. Other chest and abdominal findings: Neurostimulator device, splenic granulomata and degenerative changes of the thoracic spine stable CT/Low Dose CT Lung Screening IMPRESSION: Lung-RADS category 1 - Continue annual screening with LDCT in 12 months. IMPORTANT NOTES FOR USE: ACR Lung-RADS Version 1.0 Assessment Categories Release Date: November 03, 2013 Category: Coded 0-4 bases on nodule(s) with highest degree of suspicion. Negative screen is defined as categories 1 and 2; a positive screen is defined as categories 3 and 4. Category 3 and 4A nodules that are unchanged on interval CT should be coded as category 2, and individuals returned to screening in 12 months. Category 4X: Category 3 or 4 nodules with additional imaging findings that increase the suspicion of lung cancer, such as spiculation, GGN that doubles in size in 1 year, enlarged lymph notes, etc. Category Modifiers: S (significant finding unrelated to lung cancer) and C (prior history of treated lung cancer) may be added to the 0-4 Lung-RADS Electronically Signed: Tyler Sheldon MD (Brooks) at 14:43 EST , Service support ,
== END ==
PROVIDERS: PCP Family Medicine Geriatric Medicine; Referring Provider Internal Medicine Pulmonary Disease; Visit Provider Internal Medicine Pulmonary Disease
DX: Z87.891 Personal history of nicotine dependence (principal)
CPT/HCPCS: G0297

== ENCOUNTER → 2020-08-25 10:53 | Outpatient (CLI) | payer MEDICARE, SELFPAY ==
[2020-08-25 12:58] LABS: Absolute Neutrophil Count 6.9 X10^3/uL (2.0-7.7); Eosinophil# 0.59 X10^3/uL; Eosinophils% 5.6 % (0-5); Hematocrit 40.2 % (37-47); Hemoglobin 11.9 g/dL (12.0-15.0); Mean Corp Hgb Conc 29.6 g/dL (32-36); Mean Corpuscular Hgb 23.8 pg (27.0-32.0); Mean Corpuscular Volume 80.2 fL (81-99); Mean Platelet Vol. 10.9 fl (6.2-12.0); Monocyte% 5.7 % (0-10); NRBC Flagged by Analyzer 0 % (0-5); Neutrophil # 6.93 X10^3/uL (2.7-7.7); Neutrophil % 66.2 % (47-70); POSITIVE MORPHOLOGY YES; Platelet Count 297 K/mm3 (150-450); RBC Distribution Width SD 61.1 fl (35.1-43.9); Red Blood Count 5.01 M/mm3 (4.2-5.4); White Blood Count 10.5 K/mm3 (4.4-11.0)
[2020-08-25 13:00] LABS: Differential Indicated SCAN CRITERIA MET
[2020-08-25 13:06] LABS: Vitamin D,25 Hydroxy 38.8 ng/mL
[2020-08-25 13:22] LABS: ALB/GLOB Ratio 0.8 RATIO (0.9-2.4); AST(SGOT) 34 U/L (15-37); Alanine Aminotransfer ALT/SGPT 25 U/L (13-56); Albumin, Serum 3.6 g/dL (3.2-5.0); Alkaline Phosphatase 120 U/L (45-117); Anion Gap 6 (5-15); BUN 16 mg/dL (7-18); BUN/Creat Ratio 18.9 RATIO (10-20); Calcium,Total 9.1 mg/dL (8.5-10.1); Chloride 102 mmol/L (98-107); Creatinine, Serum 0.85 mg/dL (0.55-1.02); EST Glomerular Filtration Rate 71 mL/min (>60); Est Glom Filt Rate - Afr Amer 86 mL/min (>60); Globulin 4.3 g/dL (2.2-4.2); Glucose 164 mg/dL (74-106); Potassium 4.2 mmol/L (3.5-5.1); Protein, Total 7.9 g/dL (6.4-8.2); Sodium Level 136 mmol/L (136-145); Thyroid Stim Hormone (TSH) 4.05 uIU/mL (0.358-3.74)
[2020-08-25 13:34] LABS: Anisocytosis 1+; Platelet Estimate ADEQUATE (ADEQ); Red Cell Morphology N CHROM NORMAL (NORM C&C)
== END ==
PROVIDERS: PCP Family Medicine Geriatric Medicine; Visit Provider Family Medicine Geriatric Medicine
DX: E11.9 Type 2 diabetes mellitus without complications (principal); I10 Essential (primary) hypertension; E55.9 Vitamin D deficiency, unspecified
CPT/HCPCS: 36415; 80053; 82306; 84443; 85025

== ENCOUNTER → 2020-10-07 13:45 | Outpatient (CLI) | payer MEDICARE, SELFPAY ==
[2020-10-07 15:13] LABS: Thyroid Stim Hormone (TSH) 1.57 uIU/mL (0.358-3.74)
== END ==
PROVIDERS: PCP Family Medicine Geriatric Medicine; Visit Provider Family Medicine Geriatric Medicine
DX: E03.9 Hypothyroidism, unspecified (principal)
CPT/HCPCS: 36415; 84443

== ENCOUNTER → 2020-11-19 12:08 | Outpatient (CLI) | payer MEDICARE, SELFPAY ==
[2020-11-01 14:20] VITALS: BMI 27.9
[2020-11-19 12:23] LABS: Hematocrit 44.6 % (37-47); Mean Corp Hgb Conc 31.4 g/dL (32-36); Mean Corpuscular Hgb 26.4 pg (27.0-32.0); Mean Platelet Vol. 11.1 fl (6.2-12.0); POSITIVE COUNT YES; POSITIVE DIFFERENTIAL YES; POSITIVE MORPHOLOGY YES; Platelet Count 385 K/mm3 (150-450); RBC Distribution Width CV 17.2 % (11.6-14.6); RBC Distribution Width SD 52.9 fl (35.1-43.9); Red Blood Count 5.31 M/mm3 (4.2-5.4)
[2020-11-19 12:26] LABS: Differential Indicated MANUAL DIFF
--- NOTE | 2020-11-19 12:27 | CT_ITS ---
STUDY: CT ABDOMEN AND PELVIS WITH CONTRAST REASON FOR EXAM: Female, 69 years old. ABD PAIN. Elevated white count. RADIATION DOSAGE (If Supplied By Facility): CTDIvol = ( 12.89 ) mGy, DLP = ( 926.02 ) mGycm TECHNIQUE: Transaxial images were obtained from the dome of the diaphragm to the symphysis pubis without oral contrast. Oral and amp; IV Gastrografin and amp; 75mL Isovue-370 was administered. Sagittal and coronal images were reconstructed. Individualized dose optimization techniques were used for this CT. COMPARISON: None. FINDINGS: Calcified right hilar lymph nodes. There is a 1.3 cm calcified granuloma in the posterior aspect of the right lower lobe. Minimal increased markings in the medial aspect of the right middle lobe in keeping with linear scarring. Coronary artery calcification. There is decreased attenuation of the liver consistent with steatosis. The gallbladder is distended. Increased markings are seen in the surrounding peritoneal fat. Cholecystitis should be ruled out. The common bile duct is dilated measuring 1.25 cm down to the region of the ampulla of VATER. There is evidence of a 1.1 cm x 1 cm fat-containing nodule in the second portion of the duodenum just distal to the ampulla VATER. There are multiple benign calcified granulomata of the spleen. Normal pancreas. Normal bilateral adrenal glands. Mild degree of right perinephric stranding. Normal left kidney. Normal visualized stomach. Normal small intestine. Normal colon. The appendix is visualized and appears normal. There is diffuse atherosclerotic calcification of the abdominal aorta and its major visceral branches, without a demonstrated aneurysm. Normal inferior vena cava. There is borderline retroperitoneal lymphadenopathy with enlarged nodes no greater than 10mm in the short axis diameter. Normal urinary bladder. Normal abdominal wall. There are diffuse degenerative changes of the visualized lumbar spine. Grade 2 anterolisthesis of L5 on S1 due to spondylolysis of the pars interarticularis of the L5 vertebrae. CT/Abdomen/Pelvis WITH Contrast IMPRESSION: There is distention of the gallbladder with increased markings in the surrounding peritoneal fat extending into the right perinephric region. There is dilatation of the common bile duct down to the ampulla of VATER. No gallstone or choledocholithiasis is seen. I cannot rule out a lesion in the ampulla of VATER. There is evidence of a 1.1 cm fat nodule in the second portion of the duodenum just distal to the ampulla of VATER. Electronically Signed: Gm Fermin MD at 14:58 EDT , Service support ,
[2020-11-19 12:38] LABS: Anion Gap 13 (5-15); BUN 42 mg/dL (7-18); Calcium,Total 10.4 mg/dL (8.5-10.1); Chloride 95 mmol/L (98-107); EST Glomerular Filtration Rate 37 mL/min (>60); Est Glom Filt Rate - Afr Amer 44 mL/min (>60); Glucose 186 mg/dL (74-106); Potassium 4.8 mmol/L (3.5-5.1); Sodium Level 128 mmol/L (136-145)
[2020-11-19 12:48] LABS: Lymphocyte 10 % (19-41); Monocyte 5 % (0-10); Neutrophil-Band 29 % (0-5); Neutrophil-Segmented 56 % (47-70); Total Cells Counted 100 (MANUAL DIFF)
[2020-11-19 12:52] LABS: Platelet Estimate ADEQUATE (ADEQ); Platelet Morphology LARGE; Red Cell Morphology NORM C+C NORMAL (NORM C&C)
[2020-11-22 13:40] LABS: Pathologist Review Reviewed
== END ==
LOC: POLAB3 12:26 → CT 12:27
PROVIDERS: PCP Family Medicine Geriatric Medicine; Referring Provider Family Medicine Geriatric Medicine; Visit Provider Family Medicine Geriatric Medicine
DX: R10.9 Unspecified abdominal pain (principal)
CPT/HCPCS: 36415; 74177; 80048; 85025; Q9967; A4216

== ENCOUNTER 2020-11-19 14:30 | Emergency (ER) | payer MEDICARE, SELFPAY ==
[2020-11-01 14:20] VITALS: BMI 27.9
[2020-11-19 14:32] VITALS: BP 134/57; PULSE 130; RESP 40; TEMP 36.6; O2SAT 99; BMI 27.0
[2020-11-19 14:41] VITALS: BP 134/57; PULSE 129; RESP 40; O2SAT 99
--- NOTE | 2020-11-19 15:11 | ED.VIS.GI ---
HPI HPI - GI History of Present Illness Chief Complaint: Abd Pain Informant: patient Narrative Narrative: Patient presents with abdominal pain. It is been ongoing for 6 days. She believes it started when her dog jumped on her stomach. Pain is been increasing throughout the week. She has nausea without vomiting. No diarrhea or constipation. She denies any dysuria or hematuria. She has had no history of any abdominal surgeries in the past. Pain medications at home have not been helping. She saw her PCP today who ordered a CAT scan and laboratory studies. [facility] Medical History Acute gastric ulcer with hemorrhage Acute microcytic anemia Anemia Arthritis Cervical pain (neck) Chest pain Chronic gastritis Colon polyps COPD (chronic obstructive pulmonary disease) Diabetes Essential hypertension Fibromyalgia Former smoker GERD (gastroesophageal reflux disease) Hyperlipidemia Hypothyroidism Microcytic anemia Osteoarthritis Paroxysmal atrial fibrillation Rheumatoid arthritis Tachycardia Type 2 diabetes mellitus Vascular disease Home Medications atorvastatin 80 mg PO QHS 11/16/14 [History Last Taken 11/18/20] tiotropium bromide 1 puff INHALATION QHS 11/16/14 [History Last Taken 11/18/20] cyclobenzaprine 20 mg PO QHS 04/23/20 [History Last Taken 04/22/20] diltiazem HCl 180 tab PO BID 04/23/20 [History Last Taken 11/18/20] metformin 1,000 mg PO BIDCM 04/23/20 [History Last Taken 11/18/20] multivitamin with minerals 1 tab PO DAILY 04/23/20 [History Last Taken 04/22/20] acetaminophen 650 mg PO Q6H PRN PRN tab 04/26/20 [Rx Last Taken Unknown] sucralfate 1 gm PO 1HR_ACHS #120 tab 04/26/20 [Rx Last Taken 11/18/20] albuterol sulfate 90 mcg/actuation aerosol inhaler 2 puff INHALATION Q6H PRN 05/26/20 [History Last Taken 11/18/20] hydrochlorothiazide 25 mg tablet 25 mg PO DAILY tab 05/26/20 [History Last Taken 11/18/20] metoprolol succinate 50 mg tablet,extended release 24 hr 50 mg PO DAILY #90 tab 05/26/20 [Rx Last Taken 11/18/20] polysaccharide iron complex 150 mg iron capsule 150 mg PO DAILY cap 05/26/20 [History Last Taken 11/18/20] diphenhydramine HCl 25 mg PO Q8 06/11/20 [History Last Taken Unknown] docusate sodium 300 mg PO QHS 06/11/20 [History Last Taken 11/18/20] lansoprazole 30 mg PO DAILY 06/11/20 [History Last Taken 06/14/20] levothyroxine 88 mcg tablet 88 mcg PO DAILY tablet 11/01/20 [History Last Taken 11/18/20] lisinopril 10 mg tablet 5 mg PO DAILY tablet 11/01/20 [History Last Taken 11/18/20] cyclobenzaprine 10 mg PO DAILY 11/19/20 [History Last Taken Unknown] doxepin 30 mg PO DAILY 11/19/20 [History Last Taken Unknown] fluticasone propion-salmeterol [Advair Diskus] 1 inh INHALATION BID 11/19/20 [History Last Taken 11/18/20] pantoprazole 40 mg PO BID 11/19/20 [History Last Taken 11/18/20] Allergy/AdvReac Type Severity Reaction Status Date / Time hydroxyzine HCl Allergy Hives Verified 11/19/20 14:31 [From Vistaril] hydroxyzine pamoate Allergy Hives Verified 11/19/20 14:31 [From Vistaril] Penicillins [PCN] Allergy Hives Verified 11/19/20 14:31 Sulfa (Sulfonamide Allergy Hives Verified 11/19/20 14:31 Antibiotics) Surgical History H/O hernia repair History of esophagogastroduodenoscopy (EGD) (~06/14/20) History of foot surgery History of left heart catheterization (2009) Previous back surgery S/P insertion of spinal cord stimulator Social History Smoking Status: Former smoker ROS ROS ED Constitutional Constitutional ED: Denies chills or fever(s) Eyes Eyes: Denies blurry vision, change in vision or diplopia ENT ENT ED: Denies ear pain, rhinorrhea or sore throat Cardiovascular Cardiovascular: Denies chest pain or palpitations Respiratory/Chest Respiratory/Chest: Denies cough, dyspnea or sputum Gastrointestinal Gastrointestinal: Reports abdominal pain and nausea Genitourinary Genitourinary ED: Denies dysuria, hematuria or urinary frequency Musculoskeletal Musculoskeletal: Denies back pain or neck pain Integumentary Denies change in pigmentation or rash Neurologic Neurologic: Denies headache(s), numbness or weakness Psychiatric Psychiatric: Denies anxiety or depression Endocrine Endocrinology: Denies polydipsia or polyuria EXAM Physical Exam Const Vital Signs: 11/19/20 14:32 11/19/20 14:41 11/19/20 17:07 Temperature 97.8 F Temperature Source Oral Pulse Rate 130 H 129 H 122 H Respiratory Rate 40 H 40 H 16 Blood Pressure 134/57 H 134/57 H 153/67 H Blood Pressure Mean 82 82 95 Pulse Ox 99 99 96 Oxygen Delivery Method Room Air Room Air Room Air Positive well nourished and well developed General Appearance ED: well developed HEENT Reports moist mucous membranes normocephalic and atraumatic; Negative for tenderness Eyes PERRL and EOMs intact bilaterally Neck supple and no JVD Chest Wall Chest: Negative for tenderness Resp normal respiratory effort and clear to auscultation bilaterally Effort and Inspection: Negative for respiratory distress Cardio regular rhythm and no murmurs Rate: tachycardic Rhythm: regular rhythm GI soft to palpation, non-tender and non-distended Palpation: soft, tender other (Diffuse) and guarding Back/Spine no CVA tenderness and no thoracic nor lumbar tenderness Cervical Spine: Negative for cervical spine tenderness Extremity normal to inspection and full ROM General Extremety ED: Negative for tenderness Neuro oriented x3, CN's II-XII intact bilaterally and no sensory deficits noted Sensorium / Orientation: awake and alert Motor Exam: strength 5/5 throughout Psych mental status grossly normal Skin no rashes or lesions noted MDM MDM MDM Narrative Medical decision making narrative: Patient was given a liter of IV fluids and morphine. White blood cell count is 38,000, sodium 128, creatinine 1.77, lactate 8.8. Her total bilirubin is 0.80. AST is 228 and ALT 184. Alkaline phosphatase is 175. I reviewed her CAT scan from this afternoon and it does show a distended gallbladder with increased markings in the surrounding peritoneal fat. There is a dilation of the common bile duct down to the ampulla of vater. I discussed with Dr. Ruiz and he recommended transfer to to the possible need for ERCP. Patient was given Flagyl and cefepime due to a penicillin allergy. [facility] did not have any GI capabilities this weekend so the patient was discussed with Anabel lala and she will be transferred there for further surgical care. She did receive more IV fluids as well as Dilaudid for pain control. Lab Data Labs: Laboratory Results - last 24 hr 11/19/20 11/19/20 11/19/20 15:17 15:17 15:17 WBC 38.0 H* RBC 5.08 Hgb 13.5 Hct 43.6 MCV 85.8 MCH 26.6 L MCHC 31.0 L RDW Std Deviation 54.7 H RDW Coeff of Curtis 17.4 H Plt Count 355 MPV 11.3 Immature Gran % (Auto) [employer]IQUE COUNTER MANAGER Neut % (Auto) CLINIQUE COUNTER MANAGER Lymph % (Auto) CLINIQUE COUNTER MANAGER [place] % (Auto) CLINIQUE COUNTER MANAGER Eos % (Auto) CLINIQUE COUNTER MANAGER Baso % (Auto) CLINIQUE COUNTER MANAGER Absolute Neuts (auto) 32.3 H Absolute Lymphs (auto) 4.18 Total Counted 100 Neutrophils % (Manual) 74 H Band Neutrophils % 11 H Lymphocytes % (Manual) 11 L Monocytes % (Manual) 4 Nucleated RBC % [employer]INIQUE COUNTER MANAGER Diff Path Review May foll Sodium 128 L Potassium 4.7 Chloride 93 L Carbon Dioxide 20.0 L Anion Gap 15 BUN 45 H Creatinine 1.77 H Estim Creat Clear Calc 28.87 Est GFR (MDRD) Af Amer 37 L Est GFR (MDRD) Non-Af 30 L BUN/Creatinine Ratio 25.4 H Glucose 159 H Lactic Acid 8.8 H* Calcium 9.9 Total Bilirubin 0.80 Direct Bilirubin 0.26 AST 228 H ALT 154 H Alkaline Phosphatase 175 H Total Protein 8.2 Albumin 3.1 L Globulin 5.1 H Lipase 165 Discharge Plan Triage Chief Complaint: Abd Pain ED Provider: Floyd Inman Dx/Rx/DC Orders Clinical Impression: Acute cholecystitis, Septic shock Prescriptions: No Action albuterol sulfate [Proventil HFA] 90 mcg/actuation HFA aerosol inhaler 2 puff INHALATION Q6H PRN (Reason: Sob &/Or Wheezing) RF: 0 polysaccharide iron complex 150 mg iron capsule 150 mg PO DAILY RF: 0 hydrochlorothiazide 25 mg tablet 25 mg PO DAILY RF: 0 metoprolol succinate [Toprol XL] 50 mg tablet extended release 24 hr 50 mg PO DAILY Qty: 90 RF: 3 levothyroxine 88 mcg tablet 88 mcg PO DAILY RF: 0 lisinopril 10 mg tablet 5 mg PO DAILY RF: 0 atorvastatin 80 MG tablet 80 mg PO QHS RF: 0 tiotropium bromide 1 PUFF inhaler 1 puff INHALATION QHS RF: 0 diltiazem HCl 180 MG capsule,extended release 24hr 180 tab PO BID RF: 0 cyclobenzaprine 10 MG tablet 20 mg PO QHS RF: 0 metformin 1,000 MG tablet 1,000 mg PO BIDCM RF: 0 multivitamin with minerals 1 EACH tablet 1 tab PO DAILY RF: 0 acetaminophen 325 MG tablet 650 mg PO Q6H PRN PRN (Reason: Pain Score 1-10/Temp > 100.7 F) RF: 0 sucralfate 1 GM tablet 1 gm PO 1HR_ACHS Qty: 120 RF: 0 lansoprazole 30 MG capsule 30 mg PO DAILY RF: 0 diphenhydramine HCl 25 MG tablet 25 mg PO Q8 RF: 0 docusate sodium 100 MG capsule 300 mg PO QHS RF: 0 cyclobenzaprine 10 mg tablet 10 mg PO DAILY RF: 0 doxepin 10 mg capsule 30 mg PO DAILY RF: 0 pantoprazole 40 mg tablet,delayed release (DR/EC) 40 mg PO BID RF: 0 fluticasone propion-salmeterol [Advair Diskus] 100-50 mcg/dose Blister With Device 1 inh INHALATION BID RF: 0 Primary Care Provider: [facility] Referrals: [facility], MD [Primary Care Provider] - Disposition Disposition: Transfer to another type HCF Discharge Location: [facility]
[2020-11-19] MEDS: 0.9% Normal Saline 1,000 ML 1000 ML IV ×2 (15:21→17:01)
[2020-11-19] MEDS: Morphine 4 MG/ML Syringe IV (15:22)
[2020-11-19] MEDS: Ondansetron 4 MG/2 ML Vial IV (15:22)
[2020-11-19 15:39] LABS: Hematocrit 43.6 % (37-47); Hemoglobin 13.5 g/dL (12.0-15.0); Mean Corpuscular Hgb 26.6 pg (27.0-32.0); Mean Corpuscular Volume 85.8 fL (81-99); Mean Platelet Vol. 11.3 fl (6.2-12.0); POSITIVE COUNT YES; POSITIVE DIFFERENTIAL YES; POSITIVE MORPHOLOGY YES; Platelet Count 355 K/mm3 (150-450); RBC Distribution Width CV 17.4 % (11.6-14.6); RBC Distribution Width SD 54.7 fl (35.1-43.9); Red Blood Count 5.08 M/mm3 (4.2-5.4)
[2020-11-19 15:41] LABS: AST(SGOT) 228 U/L (15-37); Alanine Aminotransfer ALT/SGPT 154 U/L (13-56); Albumin, Serum 3.1 g/dL (3.2-5.0); Alkaline Phosphatase 175 U/L (45-117); Anion Gap 15 (5-15); BUN 45 mg/dL (7-18); BUN/Creat Ratio 25.4 RATIO (10-20); Bilirubin, Direct 0.26 mg/dL (0.00-0.30); Calcium,Total 9.9 mg/dL (8.5-10.1); Chloride 93 mmol/L (98-107); Creatinine, Serum 1.77 mg/dL (0.55-1.02); EST Glomerular Filtration Rate 30 mL/min (>60); Est Glom Filt Rate - Afr Amer 37 mL/min (>60); Estimated Creatinine Clearance 28.87 ml/min; Globulin 5.1 g/dL (2.2-4.2); Glucose 159 mg/dL (74-106); Lipase 165 U/L (73-393); Potassium 4.7 mmol/L (3.5-5.1); Protein, Total 8.2 g/dL (6.4-8.2); Sodium Level 128 mmol/L (136-145)
[2020-11-19 15:57] LABS: Lactic Acid 8.8 mmol/L (0.4-1.9)
[2020-11-19 16:05] LABS: Differential Indicated MANUAL DIFF
[2020-11-19 16:22] LABS: Lymphocyte 11 % (19-41); Monocyte 4 % (0-10); Neutrophil-Band 11 % (0-5); Neutrophil-Segmented 74 % (47-70); Total Cells Counted 100 (MANUAL DIFF)
[2020-11-19 16:24] LABS: Scan Smear per Review Criteria MANUAL DIFF
[2020-11-19 16:25] LABS: Absolute Lymphocyte Count 4.18 X10^3/uL (0.83-4.51); Absolute Neutrophil Count 32.3 X10^3/uL (2.0-7.7)
[2020-11-19] MEDS: HYDROmorphone 1 MG/ML Syringe IV ×2 (16:40→18:53)
[2020-11-19] MEDS: metroNIDAZOLE 500 MG/100 ML BAG 100 MG IV (17:05)
[2020-11-19 17:07] VITALS: BP 153/67; PULSE 122; RESP 16; O2SAT 96
[2020-11-19 18:07] VITALS: BP 165/71; PULSE 110; RESP 16; O2SAT 97
[2020-11-19 19:23] LABS: Reflex Lactate? Y
[2020-11-22 13:41] LABS: Pathologist Review Reviewed
== END 2020-11-19 18:54 | disposition other institution (70) ==
PROVIDERS: Emergency Provider Emergency Medicine; PCP Family Medicine Geriatric Medicine
DX: K81.0 Acute cholecystitis (principal); R65.21 Severe sepsis with septic shock; A41.9 Sepsis, unspecified organism; J44.9 Chronic obstructive pulmonary disease, unspecified; I48.0 Paroxysmal atrial fibrillation; M06.9 Rheumatoid arthritis, unspecified; I10 Essential (primary) hypertension; E78.5 Hyperlipidemia, unspecified; E11.9 Type 2 diabetes mellitus without complications; E03.9 Hypothyroidism, unspecified; M19.90 Unspecified osteoarthritis, unspecified site; K21.9 Gastro-esophageal reflux disease without esophagitis; Z79.51 Long term (current) use of inhaled steroids; Z79.84 Long term (current) use of oral hypoglycemic drugs; Z79.899 Other long term (current) drug therapy; Z87.11 Personal history of peptic ulcer disease; Z87.891 Personal history of nicotine dependence
CPT/HCPCS: 36415; 74177; 80048; 80076; 83605; 83690; 85025; 96361; 96365; 96367; 96375; 96376; 99285; J7030; J7050; Q9967; A4216; J2405